=== PATIENT | male | born 1960 | race Hispanic/Latino ===

== ENCOUNTER 2019-11-13 14:53 | Emergency (ER) | payer BC ==
[2019-11-13 15:59] LABS: Absolute Lymphocytes (CBC) 1.3 K/uL (0.7-4.9); Basophils % 0.5 % (0-1.3); Hematocrit 36.5 % (39.6-49.0); Lymphocytes % 18.2 % (15.3-44.8); MPV 10.9 fL (7.6-11.3)
--- NOTE | 2019-11-13 16:05 | RAD REPORT ---
EXAM DESCRIPTION: CT - Ct Stroke Brain Wo Cont - 11/13/2019 3:52 pm CLINICAL HISTORY: Code stroke CT head, blurred vision, unsteady gait CLINICAL HISTORY: None. TECHNIQUE: Axial 5 millimeter thick images of the head were obtained without IV contrast. All CT scans are performed using dose optimization technique as appropriate and may include automated exposure control or mA/KV adjustment according to patient size. FINDINGS: No intracranial hemorrhage, mass, or cerebral edema. No acute cortical based infarction se en. No cortical edema or sulcal effacement. Atrophy changes are present relatively mild. Chronic isch emic changes are scattered in the cerebral white matter and minimally in the each basal ganglia. No e xtra-axial fluid collections. Francois matter-white matter differentiation is preserved. Ventricles are in proportion to any volume loss. Visualized portions of the mastoid air cells, paranasal sinuses, and orbits are unremarkable. Findings telephoned to the referring clinician 1601 hours IMPRESSION: No hemorrhage or acute intracranial finding. Atrophy and chronic ischemic changes are present. Ventricles are in proportion. Chronic ischemic changes can mask nonhemorrhagic acute infarction. MR brain followup can be obtained if there is ongoing concern for acute ischemia.
[2019-11-13 16:09] LABS: Protime INR 1.15
[2019-11-13 16:10] LABS: Potassium 4.6 mmol/L (3.5-5.1)
[2019-11-13] MEDS ORDERED: LACTULOSE 20 GM/30 ML UCUP ONE (16:40)
--- NOTE | 2019-11-13 16:44 | RAD REPORT ---
EXAM DESCRIPTION: RAD - Chest Single View - 11/13/2019 3:59 pm CLINICAL HISTORY: Stroke protocol chest film COMPARISON: None. TECHNIQUE: AP portable chest image was obtained 1554 hours . FINDINGS: Lung volumes are very low which accentuates heart, vasculature and lung findings. No perip heral mass or consolidation. Mild failure or volume overload could be masked. Heart and vasculature are normal. No measurable pleural effusion and no pneumothorax. No acute bony abnormality seen. No acute aortic findings suspected. IMPRESSION: Limited study without focal lung parenchymal process. Shallow inspiration can obscure early failure or volume overload.
[2019-11-13 16:53] LABS: Albumin 3.3 g/dL (3.4-5.0); Bilirubin Direct 0.5 mg/dL (0-0.2); Protein, Total 7.8 g/dL (6.4-8.2)
[2019-11-13 17:40] LABS: Platelet Estimate DECR; Urine White Blood Cell Casts OK
[2019-11-13 17:41] LABS: Anisocytosis 1+; Blood Morphology Comment NOTED (NOT SEEN); Elliptocytes 1+; Hypochromasia 1+; Stomatocytes 1+
--- NOTE | 2019-11-13 17:41 | ER ---
Nurse's Notes [facility] Name: Chinedu Rosenberg Age: 59 yrs Sex: Male : 1960 Arrival Date: 11/13/2019 Time: 14:55 Bed 8 Private MD: Tomer Yepez V Diagnosis: Other cirrhosis of liver;Hepatic Encephalopathy Presentation: 11/13 15:29 Presenting complaint: Patient states: dizziness, difficulty walking "feel off balance", sr5 "couldn't see the numbers on my phone". Denies falls. Denies blood thinners. Awake/alert, steady gait from wheelchair to bed. Equal bus aide/smile. Reports s/s started at 7am today. Transition of care: patient was not received from another setting of care. Onset of symptoms was November 13, 2019 at 07:00. Care prior to arrival: None. 15:29 Method Of Arrival: Ambulatory sr5 15:29 Acuity: EDUARDO 2 sr5 15:30 Initial Sepsis Screen: Does the patient meet any 2 criteria? No. Patient's initial aa5 sepsis screen is negative. Does the patient have a suspected source of infection? No. Patient's initial sepsis screen is negative. 15:30 Risk Assessment: Do you want to hurt yourself or someone else? Patient reports no aa5 desire to harm self or others. Triage Assessment: 15:31 General: Appears in no apparent distress. Behavior is calm, cooperative. Pain: Denies sr5 pain. Historical: - Allergies: 15:31 No Known Allergies; sr5 - PMHx: 15:31 Diabetes - NIDDM; Hypertension; sr5 - Social history:: Smoking status: Patient/guardian denies using tobacco, never smoked. - Ebola Screening: : Patient negative for fever greater than or equal to 101.5 degrees Fahrenheit, and additional compatible Ebola Virus Disease symptoms. Screenin:00 Abuse screen: Denies threats or abuse. Nutritional screening: No deficits noted. aa5 Tuberculosis screening: No symptoms or risk factors identified. Fall Risk IV access (20 points). Total Millan Fall Scale indicates No Risk (0-24 pts). 16:20 Patient has been NPO before screening. The patient is alert, able to follow commands. aa5 The patient does not exhibit slurred or garbled speech The patient is not exhibiting difficulty speaking. The patient does not exhibit difficulty understanding words. The patient is able to swallow own secretions with no drooling or need for suction. Patient tolerated one teaspoon of water. No drooling, immediate coughing, gurgling, or clearing of the throat was noted. The patient tolerated 90mL of water. No drooling, immediate coughing, gurgling, or clearing of the throat was noted. The patient passed the bedside swallow screening. Oral medications may be given as ordered. Contact Physician for further diet orders. Provider notified of bedside swallow screening results: Cody Nicole DISTRIBUTION SYSTEM OPERATOR-C. Assessment: 15:31 General: Appears comfortable, Behavior is calm, cooperative. Pain: Denies pain. Neuro: aa5 Level of Consciousness is awake, alert, obeys commands, Oriented to person, place, time, situation, Speaker Mounter are equal bilaterally Moves all extremities. Gait is reports unsteady gait . Speech is normal, Facial symmetry appears normal, Pupils are PERRLA, Reports intermittent dizziness and blurry vision . Cardiovascular: Heart tones S1 S2 present Rhythm is regular. Respiratory: Airway is patent Respiratory effort is even, unlabored, Respiratory pattern is regular, symmetrical, Breath sounds are clear bilaterally. GI: Abdomen is round Bowel sounds present X 4 quads. Abd is soft and non tender X 4 quads. : No signs and/or symptoms were reported regarding the genitourinary system. EENT: No signs and/or symptoms were reported regarding the EENT system. Derm: Skin is dry, Skin is jaundiced, Skin temperature is warm. Musculoskeletal: Range of motion: intact in all extremities. 15:45 Reassessment: Pt states "I really have to pee now" at 1540. Pt assisted with urinal. aa5 Voided 100ml, completed at 1545. 15:46 Reassessment: Pt taken to CT accompanied by me, via stretcher. . aa5 15:55 Reassessment: Pt back from CT . aa5 16:30 Reassessment: Patient denies pain at this time. Pt assisted to restroom via wheelchair. aa5 . 16:41 Reassessment: Pt placed back in bed. . aa5 16:41 Neuro: Level of Consciousness is awake, alert, obeys commands, Oriented to person, aa5 place, time, situation. Respiratory: Airway is patent Respiratory effort is even, unlabored, Respiratory pattern is regular, symmetrical. Derm: Skin is dry, Skin is jaundiced, Skin temperature is warm. 16:55 Reassessment: Awaiting disposition, pt notified of wait time. . aa5 16:55 Neuro: Level of Consciousness is awake, alert, obeys commands, Oriented to person, aa5 place, time, situation. Respiratory: Airway is patent Respiratory effort is even, unlabored, Respiratory pattern is regular, symmetrical. Derm: Skin is dry, Skin is jaundiced, Skin temperature is warm. 17:52 Neuro: Level of Consciousness is awake, alert, obeys commands, Oriented to person, aa5 place, time, situation. Respiratory: Airway is patent Respiratory effort is even, unlabored, Respiratory pattern is regular, symmetrical. Derm: Skin is dry, Skin is jaundiced, Skin temperature is warm. Vital Signs: 15:31 BP 122 / 66; Pulse 97; Resp 16; Temp 98.3; Pulse Ox 98% on R/A; Weight 106.59 kg (R); sr5 Height 5 ft. 8 in. (172.72 cm); Pain 0/10; 16:00 BP 118 / 58; Pulse 95; Resp 18 S; Pulse Ox 98% on R/A; aa5 17:30 BP 120 / 61; Pulse 89; Resp 16 S; Temp 98.0(TE); Pulse Ox 98% on R/A; aa5 15:31 Body Mass Index 35.73 (106.59 kg, 172.72 cm) sr5 NIH Stroke Scale Scores: 15:31 NIHSS Score: 0 aa5 15:45 NIHSS Score: 0 la1 ED Course: 14:55 Patient arrived in ED. rg4 14:55 Tomer Yepez MD is Private Physician. rg4 15:27 Cody Nicole FNP-C [facility] la1 15:27 Harlan Saeed MD is Attending Physician. la1 15:28 Leelee Ochoa, CONNIE is Primary Nurse. aa5 15:30 Triage completed. sr5 15:31 Arm band placed on right wrist. Patient placed in an exam room. sr5 15:31 Patient has correct armband on for positive identification. Placed in gown. Bed in low aa5 position. Call light in reach. Side rails up X2. alarm security or surveillance monitor on. Pulse ox on. NIBP on. 15:35 Initial lab(s) drawn, by me, sent to lab. Inserted saline lock: 18 gauge in right aa5 antecubital area, using aseptic technique. Blood collected. 15:39 EKG done, by ED staff, reviewed by Cody MICHAEL. aa5 15:52 CT Stroke Brain w/o Contrast In Process Unspecified. EDMS 16:00 Stroke CXR 1 View In Process Unspecified. EDMS 17:50 No provider procedures requiring assistance completed. IV discontinued, intact, aa5 bleeding controlled, No redness/swelling at site. Pressure dressing applied. Administered Medications: 16:42 Drug: Lactulose 30 grams Volume: 45 ml; Route: PO; aa5 Point of Care Testing: Blood Glucose: 15:31 Blood Glucose: 125 mg/dL; sr5 Ranges: Outcome: 17:39 Discharge ordered by MD. la1 17:52 Discharged to home via wheelchair, with family. aa5 17:52 Condition: stable 17:52 Discharge instructions given to patient, Instructed on discharge instructions, follow up and referral plans. medication usage, Demonstrated understanding of instructions, follow-up care, medications, Prescriptions given X 1. 17:56 Patient left the ED. aa5 NIH Stroke Scale - NIH Stroke Score Date: 11/13/2019 Time: 15:31 Total Score = 0 1a. Level of Consciousness (LOC) - 0(Alert) 1b. Level of Consciousness (LOC) (Year \\T\\ Age) - 0(Both) 1c. LOC Commands (Open \\T\\ Closes Eyes/Volunteer Manager) - 0(Both) 2. Best Gaze (Lateral Gaze Paresis) - 0(Normal) 3. Visual Field Loss - 0(No visual loss) 4. Facial Palsy - 0(Normal) 5a. Left Arm: Motor (10-second hold) - 0(No drift) 5b. Right Arm: Motor (10-second hold) - 0(No drift) 6a. Left Leg: Motor (5-second hold - always test supine) - 0(No drift) 6b. Right Leg: Motor (5-second hold - always test supine) - 0(No drift) 7. Limb Ataxia (finger/nose \\T\\ heel/haynes - test with eyes open) - 0(Absent) 8. Sensory Loss (pinprick arms/legs/face) - 0(Normal) 9. Best Language: Aphasia (description/naming/reading) - 0(No aphasia) 10. Dysarthria (speech clarity - read or repeat words) - 0(Normal) 11. Extinction and Inattention (visual/tactile/auditory/spatial/personal) - 0(No abnormality) Initials: aa5 NIH Stroke Scale - NIH Stroke Score Date: 11/13/2019 Time: 15:45 Total Score = 0 1a. Level of Consciousness (LOC) - 0(Alert) 1b. Level of Consciousness (LOC) (Year \\T\\ Age) - 0(Both) 1c. LOC Commands (Open \\T\\ Closes Eyes/Volunteer Manager) - 0(Both) 2. Best Gaze (Lateral Gaze Paresis) - 0(Normal) 3. Visual Field Loss - 0(No visual loss) 4. Facial Palsy - 0(Normal) 5a. Left Arm: Motor (10-second hold) - 0(No drift) 5b. Right Arm: Motor (10-second hold) - 0(No drift) 6a. Left Leg: Motor (5-second hold - always test supine) - 0(No drift) 6b. Right Leg: Motor (5-second hold - always test supine) - 0(No drift) 7. Limb Ataxia (finger/nose \\T\\ heel/haynes - test with eyes open) - 0(Absent) 8. Sensory Loss (pinprick arms/legs/face) - 0(Normal) 9. Best Language: Aphasia (description/naming/reading) - 0(No aphasia) 10. Dysarthria (speech clarity - read or repeat words) - 0(Normal) 11. Extinction and Inattention (visual/tactile/auditory/spatial/personal) - 0(No abnormality) Initials: la1 Signatures: Dispatcher [employer] EDMS Leelee Ochoa, RN RN aa5 Corina Alexis, clerk EKG Tat1 Cody Nicole FNP-C FNP-Cla1 Ron Ward RN RN sr5 Mikala Bell rg4 Corrections: (The following items were deleted from the chart) 15:59 15:41 EKG done, by ED staff, reviewed by Cody SIERRA-Noel [facility] aa5 16:00 15:30 EKG done, by ED staff, reviewed by Cody MICHAEL [facility] 16:00 15:36 Reassessment: Pt taken to CT accompanied by me, via stretcher. . aa5 aa5 16:01 15:35 Reassessment: Pt states "I really have to pee now" at 1530. Pt assisted aa5 with urinal. Voided 100ml, completed at 1535. aa5 17:59 16:30 Reassessment: Patient is alert, oriented x 3, equal unlabored aa5 respirations, skin warm/dry/pink. Patient denies pain at this time. Pt assisted to restroom via wheelchair. . aa5 17:59 16:41 Reassessment: Patient is alert, oriented x 3, equal unlabored aa5 respirations, skin warm/dry/pink. Pt placed back in bed. . aa5
--- NOTE | 2019-11-13 17:42 | EDPHYS ---
Physician Documentation [facility] Name: Chinedu Rosenberg Age: 59 yrs Sex: Male : 1960 Arrival Date: 11/13/2019 Time: 14:55 Bed 8 Private MD: Tomer Yepez V ED Physician Harlan Saeed HPI: 11/13 15:41 This 59 yrs old Male presents to ER via Ambulatory with complaints of Doesn't la1 Feel Right. 15:41 The patient's problem is reported as altered mental status, confused. Onset: The la1 symptoms/episode began/occurred last known well was 2100 last night, pt woke up at 0330 with symptoms of confusion, for instance he was unable to find his cell phone and it was in his pocket, remembers having some trouble walking, was walking "like a turtle". Duration: The episode is continuous. Context: the episode(s) was witnessed, by co-worker(s), symptoms became apparent upon waking. The symptoms are alleviated by nothing. The symptoms are aggravated by nothing. Associated signs and symptoms: Pertinent negatives: diaphoresis, headache, lightheadedness, nausea, numbness, palpitations, seizure, shortness of breath, tingling, vertigo, vomiting, weakness. Severity of symptoms: At their worst the symptoms were moderate. Patient's baseline: Neuro: alert and fully oriented, Motor: no deficits, Speech: normal, The patient has a previous history of cirrhosis. pt reports that he went to bed around 0330 and was feeling normal but when he woke up he was feeling a little confused and just "not right". Historical: - Allergies: 15:31 No Known Allergies; sr5 - PMHx: 15:31 Diabetes - NIDDM; Hypertension; sr5 - Social history:: Smoking status: Patient/guardian denies using tobacco, never smoked. - Ebola Screening: : Patient negative for fever greater than or equal to 101.5 degrees Fahrenheit, and additional compatible Ebola Virus Disease symptoms. ROS: 15:44 Constitutional: Negative for fever, chills, and weight loss, Eyes: Negative for injury, la1 pain, redness, and discharge, ENT: Negative for injury, pain, and discharge, Neck: Negative for injury, pain, and swelling, Cardiovascular: Negative for chest pain, palpitations, and edema, Respiratory: Negative for shortness of breath, cough, wheezing, and pleuritic chest pain, Abdomen/GI: Negative for abdominal pain, nausea, vomiting, diarrhea, and constipation, Back: Negative for injury and pain, MS/Extremity: Negative for injury and deformity. 15:44 Neuro: Positive for dizziness, gait disturbance, Negative for altered mental status, headache, hearing loss, loss of consciousness, numbness, seizure activity, speech changes, syncope, near syncope, tingling, visual changes, weakness. Exam: 15:45 Constitutional: This is a well developed, well nourished patient who is awake, alert, la1 and in no acute distress. Head/Face: Normocephalic, atraumatic. Eyes: Pupils equal round and reactive to light, extra-ocular motions intact. Periorbital areas with no swelling, redness, or edema. ENT: Nares patent. No nasal discharge, no septal abnormalities noted. Tympanic membranes are normal and external auditory canals are clear. Oropharynx with no redness, swelling, or masses, exudates, or evidence of obstruction, uvula midline. Mucous membranes moist. Neck: Supple, full range of motion without nuchal rigidity, or vertebral point tenderness. No Meningismus. Chest/axilla: Normal chest wall appearance and motion. Nontender with no deformity. No lesions are appreciated. Cardiovascular: Regular rate and rhythm with a normal S1 and S2. No gallops, murmurs, or rubs. Normal PMI, no JVD. No pulse deficits. Respiratory: Lungs have equal breath sounds bilaterally, clear to auscultation No rales, rhonchi or wheezes noted. No increased work of breathing, no retractions or nasal flaring. Abdomen/GI: Soft, non-tender, with normal bowel sounds. No distension or tympany. No guarding or rebound. No evidence of tenderness throughout. Skin: Warm, dry with normal turgor. Normal color with no rashes, no lesions, and no evidence of cellulitis. MS/ Extremity: Pulses equal, no cyanosis. Neurovascular intact. Full, normal range of motion. 15:45 Neuro: Orientation: is normal, to person, place, time \\T\\ situation. Mentation: is normal, Memory: is normal, Cranial nerves: CN II- XII are normal as tested, visual lester are intact. extraocular movements are intact, Nystagmus is absent. Speech is clear and appropriate. Cerebellar function: normal finger to nose testing, Motor: is normal, no acute changes, moves all fours, strength is 5/5 in all extremities, Sensation: is normal, no acute changes. 16:02 Radiologist reports: No hemorrhage identified, chronic ischemic changes la1 Vital Signs: 15:31 BP 122 / 66; Pulse 97; Resp 16; Temp 98.3; Pulse Ox 98% on R/A; Weight 106.59 kg (R); sr5 Height 5 ft. 8 in. (172.72 cm); Pain 0/10; 16:00 BP 118 / 58; Pulse 95; Resp 18 S; Pulse Ox 98% on R/A; aa5 17:30 BP 120 / 61; Pulse 89; Resp 16 S; Temp 98.0(TE); Pulse Ox 98% on R/A; aa5 15:31 Body Mass Index 35.73 (106.59 kg, 172.72 cm) sr5 NIH Stroke Scale Scores: 15:31 NIHSS Score: 0 aa5 15:45 NIHSS Score: 0 la1 MDM: 15:33 Patient medically screened. la1 17:34 Data reviewed: vital signs, nurses notes, lab test result(s), EKG, radiologic studies, la1 I have discussed the patient's presentation/case with the attending Emergency Department Physician; and as a result, I will discharge patient. Data interpreted: Pulse oximetry: on room air is 98 %. Interpretation: normal. Counseling: I had a detailed discussion with the patient and/or guardian regarding: the historical points, exam findings, and any diagnostic results supporting the discharge/admit diagnosis, lab results, the need for outpatient follow up, a family practitioner, a tobacco sieve operator, to return to the emergency department if symptoms worsen or persist or if there are any questions or concerns that arise at home. ED course: PT alert, oriented x4, known history of cirrhosis but has not had to take lactulose before. Pt is tolerating PO, has not been febrile, hypotensive, or tachycardic during ED stay. Family at bedside, pt and family explained at length the treatment plan and need for lactulose. Given strict return precautions and cautioned not to until follow up with PCP. 11/13 15:35 Order name: Basic Metabolic Panel; Complete Time: 16:29 aa5 12/26 15:35 Order name: CBC with Diff aa11/13 15:35 Order name: Protime (+inr); Complete Time: 16:29 11/13 15:35 Order name: Ptt, Activated; Complete Time: 16:29 11/13 15:35 Order name: AMMONIA; Complete Time: 16:13 11/13 15:41 Order name: Glucose, Ancillary Testing; Complete Time: 16:05 EDCO 11/13 15:35 Order name: CT Stroke Brain w/o Contrast; Complete Time: 16:29 11/13 15:35 Order name: Stroke CXR 1 View; Complete Time: 16:55 11/13 15:35 Order name: EKG; Complete Time: 15:36 11/13 15:35 Order name: Accucheck; Complete Time: 15:35 11/13 15:35 Order name: Cardiac monitoring; Complete Time: 15:35 11/13 16:30 Order name: LFT's; Complete Time: 16:55 la1 11/13 17:41 Order name: CBC Smear Scan [facility] 11/13 15:35 Order name: EKG - Nurse/Tech; Complete Time: 15:57 11/13 15:35 Order name: IV Saline Lock; Complete Time: 15:36 11/13 15:35 Order name: Labs collected and sent; Complete Time: 15:35 11/13 15:35 Order name: NPO; Complete Time: 15:36 11/13 15:35 Order name: O2 Per Protocol; Complete Time: 15:36 11/13 15:35 Order name: O2 Sat Monitoring; Complete Time: 15:36 11/13 15:35 Order name: Stroke Swallow Screen; Complete Time: 16:44 aa Administered Medications: 16:42 Drug: Lactulose 30 grams Volume: 45 ml; Route: PO; aa5 Point of Care Testing: Blood Glucose: 15:31 Blood Glucose: 125 mg/dL; sr5 Ranges: Critical Glucose Levels:Adult <50 mg/dl or >400 mg/dl <40 mg/dl or >180 mg/dl Disposition: 19:08 Co-signature as Attending Physician, Harlan Saeed MD. rn Disposition: 11/13/19 17:39 Discharged to Home. Impression: Other cirrhosis of liver, Hepatic Encephalopathy. - Condition is Stable. - Discharge Instructions: Hepatic Encephalopathy, Liver Failure. - Prescriptions for Lactulose 10 gram/15 mL Oral Solution - take 30 milliliters by ORAL route once daily; 600 milliliter. - Medication Reconciliation Form, Thank You Letter form. - Follow up: Emergency Department; When: As needed. Follow up: Private Physician; When: 2 - 3 days; Reason: Recheck today's complaints, Re-evaluation by your physician. - Problem is new. - Symptoms have improved. NIH Stroke Scale - NIH Stroke Score Date: 11/13/2019 Time: 15:31 Total Score = 0 1a. Level of Consciousness (LOC) - 0(Alert) 1b. Level of Consciousness (LOC) (Year \\T\\ Age) - 0(Both) 1c. LOC Commands (Open \\T\\ Closes Eyes/Registration Rep) - 0(Both) 2. Best Gaze (Lateral Gaze Paresis) - 0(Normal) 3. Visual Field Loss - 0(No visual loss) 4. Facial Palsy - 0(Normal) 5a. Left Arm: Motor (10-second hold) - 0(No drift) 5b. Right Arm: Motor (10-second hold) - 0(No drift) 6a. Left Leg: Motor (5-second hold - always test supine) - 0(No drift) 6b. Right Leg: Motor (5-second hold - always test supine) - 0(No drift) 7. Limb Ataxia (finger/nose \\T\\ heel/haynes - test with eyes open) - 0(Absent) 8. Sensory Loss (pinprick arms/legs/face) - 0(Normal) 9. Best Language: Aphasia (description/naming/reading) - 0(No aphasia) 10. Dysarthria (speech clarity - read or repeat words) - 0(Normal) 11. Extinction and Inattention (visual/tactile/auditory/spatial/personal) - 0(No abnormality) Initials: aa5 NIH Stroke Scale - NIH Stroke Score Date: 11/13/2019 Time: 15:45 Total Score = 0 1a. Level of Consciousness (LOC) - 0(Alert) 1b. Level of Consciousness (LOC) (Year \\T\\ Age) - 0(Both) 1c. LOC Commands (Open \\T\\ Closes Eyes/Registration Rep) - 0(Both) 2. Best Gaze (Lateral Gaze Paresis) - 0(Normal) 3. Visual Field Loss - 0(No visual loss) 4. Facial Palsy - 0(Normal) 5a. Left Arm: Motor (10-second hold) - 0(No drift) 5b. Right Arm: Motor (10-second hold) - 0(No drift) 6a. Left Leg: Motor (5-second hold - always test supine) - 0(No drift) 6b. Right Leg: Motor (5-second hold - always test supine) - 0(No drift) 7. Limb Ataxia (finger/nose \\T\\ heel/haynes - test with eyes open) - 0(Absent) 8. Sensory Loss (pinprick arms/legs/face) - 0(Normal) 9. Best Language: Aphasia (description/naming/reading) - 0(No aphasia) 10. Dysarthria (speech clarity - read or repeat words) - 0(Normal) 11. Extinction and Inattention (visual/tactile/auditory/spatial/personal) - 0(No abnormality) Initials: la1 Signatures: Dispatcher [employer] EDMS Harlan Saeed MD MD rn Calderon, Audri RN RN aa5 Cody Nicole, CNC MACHINE PROGRAMMER-C CNC MACHINE PROGRAMMER-Cla1 Resecker, Ron, RN RN sr5 Corrections: (The following items were deleted from the chart) 17:56 17:39 11/13/2019 17:39 Discharged to Home. Impression: Other cirrhosis of aa5 liver; Hepatic Encephalopathy. Condition is Stable. Forms are Medication Reconciliation Form, Thank You Letter, Antibiotic Education, Prescription Opioid Use. Follow up: Emergency Department; When: As needed. Follow up: Private Physician; When: 2 - 3 days; Reason: Recheck today's complaints, Re-evaluation by your physician. Problem is new. Symptoms have improved. la1
[2019-11-13 19:17] VITALS: BP 122/66; TEMP 98.3; O2SAT 98
--- NOTE | 2019-11-14 13:49 | EKG ---
Test Date: 2019-11-13 Test Time: 15:45:21 Child Specialist: BHAVYA MEASUREMENT RESULTS: Intervals: Rate: 97 ND: 148 QRSD: 134 QT: 388 QTc: 492 [place]: P: 64 ND: 148 QRS: 23 T: 32 INTERPRETIVE STATEMENTS: Normal sinus rhythm Right bundle branch block Abnormal ECG Compared to ECG 11/05/2007 05:39:45 Right bundle-branch block now present Electronically Signed On 11-14-19 13:46:54 INSPECTOR AIDE by Wiliam Wagner
== END 2019-11-13 17:56 | disposition home or self-care (01) ==
LOC: ER 14:53
DX: K72.90 Hepatic failure, unspecified without coma (principal); K74.69 Other cirrhosis of liver; I10 Essential (primary) hypertension
CPT/HCPCS: 36415; 70450; 71045; 80048; 80076; 82140; 82947; 85025; 85610; 85730; 93005; 99285

== ENCOUNTER 2020-09-14 15:23 | Observation (INO) | payer BC ==
--- OUTSIDE RECORDS SUMMARY | 2020-09-14 15:33 | XMS REPORT | Clinical Summary ---
:1960 Author Organization [facility] Address [address] [place] [address] Care Team Providers Name Role Phone Unavailable Primary Care Provider Unavailable Allergies Not on File Medications Not on file Active Problems Not on file Encounters Date Type Specialty Care Team Description 09/01/2020 Telephone Hepatology Tracy Russell MA Rec /Delivery 1 CD 08/23/2020 Abstract Hepatology Jany Watkins MA 08/19/2020 Telephone Hepatology Maritza De Anda Appointment after 09/14/2019 Social History Tobacco Use Types Packs/Day Years Used Date Never Assessed Sex Assigned at Date Recorded Not on file Last Filed Vital Signs Not on file Plan of Treatment Date Type Specialty Care Team Description 09/16/2020 Office Visit Hepatology Annika Baires MD [address] [place], [place] [address] [phone] Health Maintenance Due Date Last Done Comments COLON CANCER SCREENING COLONOSCOPY 1960 LIPID PANEL 1993 INFLUENZA VACCINE (#1) 2020 Results Not on fileafter 09/14/2019 Insurance Payer Benefit Plan / Subscriber ID Effective Dates Phone Addre ss Type Group BLUE BCBS PPO POS [id number] 2019-Presen [phone] [id number] PPO CROSS/BLUE EPO CHOICE t [facility] [id number]
--- NOTE | 2020-09-14 17:25 | RAD REPORT ---
EXAM DESCRIPTION: RAD - Chest Single View - 09/14/2020 5:12 pm CLINICAL HISTORY: COUGH Chest pain. COMPARISON: Chest Single View dated 11/13/2019 FINDINGS: Portable technique limits examination quality. The lungs are grossly clear. The heart is normal in size. No displaced fractures. IMPRESSION: No acute intrathoracic process suspected.
[2020-09-14] MEDS ORDERED: NA CHLORIDE 0.9% 1,000 ML ONE ×2 (17:36→18:44)
[2020-09-14 17:52] LABS: Absolute Lymphocytes (CBC) 1.5 K/uL (0.7-4.9); Basophils % 0.4 % (0-1.3); Hematocrit 28.4 % (39.6-49.0); Lymphocytes % 14.9 % (15.3-44.8); MPV 10.6 fL (7.6-11.3)
[2020-09-14 17:55] LABS: Protime INR 1.26
[2020-09-14 18:11] LABS: Albumin 2.8 g/dL (3.4-5.0); Bilirubin Direct 0.8 mg/dL (0-0.2); Bilirubin Total 1.5 mg/dL (0.2-1.0); Magnesium 2.4 mg/dL (1.8-2.4); Protein, Total 7.3 g/dL (6.4-8.2); Troponin (Emerg Dept Use Only) 0.04 ng/mL (0.0-0.045)
[2020-09-14 18:28] LABS: Blood Morphology Comment NOTED (NOT SEEN); Hypochromasia 1+; Platelet Estimate DECR; Platelets, Giant PRESENT; White Blood Cell Scan OK (OK)
[2020-09-14 18:31] LABS: Urine Blood 2+ (NEG); Urine Glucose 3+ (NEG); Urine Protein NEGATIVE (NEG); Urine Specific Gravity 1.015 (1.005-1.030)
[2020-09-14] MEDS ORDERED: CEFTRIAXONE 1000 MG/VIAL ONE (18:44)
--- NOTE | 2020-09-14 18:52 | ER ---
Nurse's Notes [facility] Name: Chinedu Rosenberg Age: 59 yrs Sex: Male : 1960 Arrival Date: 09/14/2020 Time: 15:25 Bed 14 Private MD: Diagnosis: Unspecified cirrhosis of liver;Type 2 diabetes mellitus;Anemia, unspecified;Hypotension;Malaise and fatigue;Fever, unspecified;Urinary tract infection, site not specified Presentation: 09/14 15:58 Chief complaint: Patient states: I still feel wobbly and lightheaded a little bit ca1 today. Denies pain. Denies fever. Denies cough and congestion. Denies N/V/D Spouse and/or significant other states: : Yesterday he came home sick from work. He had no appetite, had trouble walking and was lightheaded and fell once yesterday and couldn't get up. He again almost fell last night but caught himself. Still wobbly today and lightheaded. Went to his PCP today, and was sent here to the ER. Coronavirus screen: Client denies travel out of the [place] in the last 14 days. fatigue, Client presents with at least one sign or symptom that may indicate coronavirus-19. Standard/surgical mask placed on the client. Provider contacted for isolation considerations. The client reports previous COVID testing was negative. Date of collection: July 2020. Ebola Screen: Patient negative for fever greater than or equal to 101.5 degrees Fahrenheit, and additional compatible Ebola Virus Disease symptoms Patient denies exposure to infectious person. Patient denies travel to an Ebola-affected area in the 21 days before illness onset. No symptoms or risks identified at this time. Initial Sepsis Screen: Does the patient meet any 2 criteria? No. Patient's initial sepsis screen is negative. Does the patient have a suspected source of infection? No. Patient's initial sepsis screen is negative. Risk Assessment: Do you want to hurt yourself or someone else? Patient reports no desire to harm self or others. Onset of symptoms was September 14, 2020. 15:58 Method Of Arrival: Ambulatory ca1 15:58 Acuity: EDUARDO 3 ca1 Triage Assessment: 16:00 General: Appears in no apparent distress. comfortable, Behavior is cooperative, bp appropriate for age, anxious. Pain: Denies pain. EENT: No deficits noted. Neuro: Level of Consciousness is awake, alert, obeys commands, Oriented to Appropriate for age Reports dizziness. Cardiovascular: No deficits noted. Respiratory: No deficits noted. GI: No signs and/or symptoms were reported involving the gastrointestinal system. : No signs and/or symptoms were reported regarding the genitourinary system. Derm: No deficits noted. Musculoskeletal: Circulation, motion, and sensation intact. Range of motion: intact in all extremities. Historical: - Allergies: 16:08 No Known Allergies; ca1 - PMHx: 16:08 Diabetes - NIDDM; Hypertension; Cirrhosis; ca1 - PSHx: 16:08 None; ca1 - Immunization history:: Adult Immunizations up to date, Flu vaccine is not up to date. It has been more than one year since last vaccine. - Social history:: Smoking status: Patient denies any tobacco usage or history of. - Family history:: not pertinent. Screenin:00 Abuse screen: Denies threats or abuse. Denies injuries from another. Nutritional bp screening: No deficits noted. Tuberculosis screening: No symptoms or risk factors identified. Fall Risk None identified. Assessment: 16:00 General: SEE TRIAGE NOTE. bp 17:00 Reassessment: Patient appears in no apparent distress at this time. Patient and/or bp family updated on plan of care and expected duration. Pain level reassessed. Patient is alert, oriented x 3, equal unlabored respirations, skin warm/dry/pink. INITIAL ORDERS IN PROCESS. 18:00 Reassessment: Patient appears in no apparent distress at this time. Patient and/or bp family updated on plan of care and expected duration. Pain level reassessed. Patient is alert, oriented x 3, equal unlabored respirations, skin warm/dry/pink. PT NOTED HYPOTENSIVE ON MONITOR. PROVIDER NOTIFIED, IVF INITIATED. Vital Signs: 15:58 BP 111 / 56; Pulse 93; Resp 16 S; Temp 98.7(TE); Pulse Ox 100% on R/A; Weight 106.59 kg ca1 (R); Height 5 ft. 8 in. (172.72 cm) (R); Pain 0/10; 16:46 BP 83 / 64; Pulse 94; Resp 17; Pulse Ox 100% ; bp 17:30 BP 96 / 34; Pulse 89; Resp 17; Pulse Ox 100% ; bp 18:26 BP 104 / 57; Pulse 90; Resp 16; Pulse Ox 99% ; bp 22:34 BP 108 / 63; Pulse 89; Resp 19; Temp 97.8; Pulse Ox 99% ; rr5 23:19 BP 109 / 53; Pulse 87; Resp 19; Temp 98; Pulse Ox 100% ; rr5 15:58 Body Mass Index 35.73 (106.59 kg, 172.72 cm) ca1 ED Course: 15:25 Patient arrived in ED. ds1 16:00 Patient has correct armband on for positive identification. Bed in low position. Call bp light in reach. Side rails up X2. Adult w/ patient. 16:05 Triage completed. ca1 16:08 Arm band placed on right wrist. ca1 16:28 Esteban Bonilla, RN is Primary Nurse. bp 16:48 Chad Sterling MD is Attending Physician. tyler 17:12 XRAY Chest (1 view) In Process Unspecified. EDMS 17:58 Inserted saline lock: 20 gauge in right antecubital area, using aseptic technique. 4 Blood collected. 18:49 Tomer Yepez MD is Hospitalizing Provider. [facility] Administered Medications: 17:30 Drug: NS 0.9% 500 ml Route: IV; Rate: bolus; Site: right antecubital; bp 17:30 Drug: NS 0.9% 1000 ml Route: IV; Rate: 125 ml/hr; Site: right antecubital; bp 18:33 Drug: Rocephin 2 grams Route: IV; Rate: per protocol; Site: right antecubital; bp 18:33 Drug: NS 0.9% 1000 ml Route: IV; Rate: 1 bolus; Site: right antecubital; bp Outcome: 18:51 Decision to Hospitalize by Provider. [facility] 09/15 00:03 Patient left the ED. rr5 Signatures: Dispatcher [employer] EDMS Chad Sterilng MD MD cha Sanford, Demi ds1 Esteban Bonilla, RN RN bp Juan Antonio Kyle RN RN rr5 Rosanne Ladd RN RN ca1 Kirit Ca dh4 Corrections: (The following items were deleted from the chart) 09/14 16:50 16:46 Pulse 94bpm; Resp 17bpm; Pulse Ox 100%; bp bp
--- NOTE | 2020-09-14 18:52 | EDPHYS ---
Physician Documentation [facility] Name: Chinedu Rosenberg Age: 59 yrs Sex: Male : 1960 Arrival Date: 09/14/2020 Time: 15:25 Bed 14 Private MD: ED Physician Chad Sterling HPI: 09/14 17:07 This 59 yrs old Male presents to ER via Ambulatory with complaints of Sent per tyler Lucho, Doesn't Feel Right. 17:07 weak, doesn't feel well. Onset: The symptoms/episode began/occurred 2 day(s) ago. tyler Severity of symptoms: At their worst the symptoms were mild moderate in the emergency department the symptoms are unchanged. The patient has experienced similar episodes in the past, a few times. Historical: - Allergies: 16:08 No Known Allergies; ca1 - PMHx: 16:08 Diabetes - NIDDM; Hypertension; Cirrhosis; ca1 - PSHx: 16:08 None; ca1 - Immunization history:: Adult Immunizations up to date, Flu vaccine is not up to date. It has been more than one year since last vaccine. - Social history:: Smoking status: Patient denies any tobacco usage or history of. - Family history:: not pertinent. ROS: 17:07 Constitutional: Negative for fever, chills, and weight loss, Eyes: Negative for injury, tyler pain, redness, and discharge, ENT: Negative for injury, pain, and discharge, Neck: Negative for injury, pain, and swelling, Cardiovascular: Negative for chest pain, palpitations, and edema, Respiratory: Negative for shortness of breath, cough, wheezing, and pleuritic chest pain, Back: Negative for injury and pain, : Negative for injury, bleeding, discharge, and swelling, Skin: Negative for injury, rash, and discoloration, Neuro: Negative for headache, weakness, numbness, tingling, and seizure, Psych: Negative for depression, anxiety, suicide ideation, homicidal ideation, and hallucinations, Allergy/Immunology: Negative for hives, rash, and allergies, Endocrine: Negative for neck swelling, polydipsia, polyuria, polyphagia, and marked weight changes, Hematologic/Lymphatic: Negative for swollen nodes, abnormal bleeding, and unusual bruising. 17:07 Neck: Positive for distended neck veins. 17:07 Abdomen/GI: Positive for abdominal distension. 17:07 MS/extremity: Positive for swelling, of the right leg and left leg. Exam: 17:07 Constitutional: This is a well developed, well nourished patient who is awake, alert, tyler and in no acute distress. Head/Face: Normocephalic, atraumatic. Eyes: Pupils equal round and reactive to light, extra-ocular motions intact. Lids and lashes normal. Conjunctiva and sclera are non-icteric and not injected. Cornea within normal limits. Periorbital areas with no swelling, redness, or edema. ENT: Nares patent. No nasal discharge, no septal abnormalities noted. Tympanic membranes are normal and external auditory canals are clear. Oropharynx with no redness, swelling, or masses, exudates, or evidence of obstruction, uvula midline. Mucous membranes moist. Cardiovascular: Regular rate and rhythm with a normal S1 and S2. No gallops, murmurs, or rubs. Normal PMI, no JVD. No pulse deficits. Respiratory: Lungs have equal breath sounds bilaterally, clear to auscultation and percussion. No rales, rhonchi or wheezes noted. No increased work of breathing, no retractions or nasal flaring. Back: No spinal tenderness. No costovertebral tenderness. Full range of motion. Male : Normal genitalia with no discharge or lesions. Skin: Warm, dry with normal turgor. Normal color with no rashes, no lesions, and no evidence of cellulitis. Neuro: Awake and alert, GCS 15, oriented to person, place, time, and situation. Cranial nerves II-XII grossly intact. Motor strength 5/5 in all extremities. Sensory grossly intact. Cerebellar exam normal. Normal gait. Psych: Awake, alert, with orientation to person, place and time. Behavior, mood, and affect are within normal limits. 17:07 Neck: External neck: is normal, C-spine: appears grossly normal, no acute changes, Thyroid: appears normal, Trachea: is midline with no obvious abnormalities, ROM/movement: is normal. 17:07 Chest/axilla: Inspection: normal, Palpation: is normal, Axilla: are normal, Lymph nodes: lymphadenopathy is not appreciated. 17:07 Cardiovascular: Rate: normal, Rhythm: regular, Pulses: Pulses are 4+ in bilateral radial, brachial, femoral, popliteal, posterior tibial and and dorsalis pedis arteries.. Heart sounds: normal, Edema: 4+ edema to level of left midcalf and right midcalf, JVD: is noted bilaterally, to 2 cm. 17:07 Respiratory: Exam negative for Vital Signs: 15:58 BP 111 / 56; Pulse 93; Resp 16 S; Temp 98.7(TE); Pulse Ox 100% on R/A; Weight 106.59 kg ca1 (R); Height 5 ft. 8 in. (172.72 cm) (R); Pain 0/10; 16:46 BP 83 / 64; Pulse 94; Resp 17; Pulse Ox 100% ; bp 17:30 BP 96 / 34; Pulse 89; Resp 17; Pulse Ox 100% ; bp 18:26 BP 104 / 57; Pulse 90; Resp 16; Pulse Ox 99% ; bp 22:34 BP 108 / 63; Pulse 89; Resp 19; Temp 97.8; Pulse Ox 99% ; rr5 23:19 BP 109 / 53; Pulse 87; Resp 19; Temp 98; Pulse Ox 100% ; rr5 15:58 Body Mass Index 35.73 (106.59 kg, 172.72 cm) ca1 MDM: 16:48 Patient medically screened. tyler 17:07 Differential Diagnosis sepsis. Data reviewed: vital signs, nurses notes, lab test [facility] result(s), EKG, radiologic studies, plain films. Data interpreted: court monitor: rate is 94 beats/min, rhythm is regular, Pulse oximetry: on room air is 100 %. Test interpretation: by ED physician or midlevel provider: ECG, plain radiologic studies. Counseling: I had a detailed discussion with the patient and/or guardian regarding: the historical points, exam findings, and any diagnostic results supporting the discharge/admit diagnosis, lab results, radiology results, the need for further work-up and treatment in the hospital. 09/14 16:55 Order name: Basic Metabolic Panel [facility] 09/14 16:55 Order name: CBC with Diff; Complete Time: 18:41 09/14 16:55 Order name: LFT's tyler 09/14 16:55 Order name: Magnesium [facility] 09/14 16:55 Order name: NT PRO-BNP; Complete Time: 18:23 tyler 09/14 16:55 Order name: PT-INR; Complete Time: 18:06 [facility] 09/14 16:55 Order name: Troponin (emerg Dept Use Only); Complete Time: 18:23 [facility] 09/14 16:55 Order name: Lipase; Complete Time: 18:23 [facility] 09/14 16:55 Order name: Blood Culture Adult (2) [facility] 09/14 16:55 Order name: AMMONIA; Complete Time: 18:06 [facility] 09/14 16:55 Order name: Lactate; Complete Time: 18:23 [facility] 09/14 16:55 Order name: Urine Culture [facility] 09/14 16:56 Order name: Basic Metabolic Panel; Complete Time: 18:23 [facility] 09/14 16:56 Order name: Liver (Hepatic) Function; Complete Time: 18:23 [facility] 09/14 16:55 Order name: XRAY Chest (1 view); Complete Time: 18:06 [facility] 09/14 16:55 Order name: EKG; Complete Time: 16:57 [facility] 09/14 16:56 Order name: Magnesium; Complete Time: 18:23 [facility] 09/14 17:03 Order name: Type And Screen [facility] 09/14 18:20 Order name: Urine Dipstick--Ancillary (enter results); Complete Time: 18:41 09/14 18:28 Order name: CBC Smear Scan; Complete Time: 18:41 [facility] 09/14 18:44 Order name: ABO/RH no charge; Complete Time: 18:47 [facility] 09/14 18:44 Order name: COVID-19 [facility] 09/14 18:45 Order name: COVID-19 09/14 18:56 Order name: CONS Physician Consult [facility] 09/14 20:42 Order name: Lactate Sepsis 2 HR Follow-up [facility] 09/14 21:56 Order name: SARS-COV-2 RT PCR [facility] 09/14 16:55 Order name: Cardiac monitoring; Complete Time: 17:43 [facility] 09/14 16:55 Order name: EKG - Nurse/Tech; Complete Time: 17:43 [facility] 09/14 16:55 Order name: IV Saline Lock; Complete Time: 17:43 [facility] 09/14 16:55 Order name: Labs collected and sent; Complete Time: 17:43 [facility] 09/14 16:55 Order name: O2 Per Protocol; Complete Time: 17:21 [facility] 09/14 16:55 Order name: O2 Sat Monitoring; Complete Time: 17:00 [facility] 09/14 16:55 Order name: Urine Dipstick-Ancillary (obtain specimen); Complete Time: 18:47 [facility] 09/14 17:59 Order name: Labs - recollect needed: collect abo\E\rh; Complete Time: 18:21 bd Administered Medications: 17:30 Drug: NS 0.9% 500 ml Route: IV; Rate: bolus; Site: right antecubital; bp 17:30 Drug: NS 0.9% 1000 ml Route: IV; Rate: 125 ml/hr; Site: right antecubital; bp 18:33 Drug: Rocephin 2 grams Route: IV; Rate: per protocol; Site: right antecubital; bp 18:33 Drug: NS 0.9% 1000 ml Route: IV; Rate: 1 bolus; Site: right antecubital; bp Disposition: 09/14/20 18:51 Hospitalization ordered by Tomer Yepez for Inpatient Admission. Preliminary diagnosis are Unspecified cirrhosis of liver, Type 2 diabetes mellitus, Anemia, unspecified, Hypotension, Malaise and fatigue, Fever, unspecified, Urinary tract infection, site not specified. - Bed requested for Telemetry/MedSurg (Inpatient). - Status is Inpatient Admission. rr5 - Condition is Fair. - Problem is new. - Symptoms have improved. Signatures: Dispatcher [employer] EDMS Valarie Coleman Corey, MD MD cha Lasagna, Tonya, RN RN tl1 Esteban Bonilla RN RN Juan Antonio Beach, RN RN rr5 Rosanne Ladd RN RN ca1 Corrections: (The following items were deleted from the chart) 22:24 18:51 Hospitalization Ordered by Tomer Yepez MD for Inpatient Admission. Preliminary tl1 diagnosis is Unspecified cirrhosis of liver; Type 2 diabetes mellitus; Anemia, unspecified; Hypotension; Malaise and fatigue; Fever, unspecified; Urinary tract infection, site not specified. Bed requested for Telemetry/MedSurg (Inpatient). Status is Inpatient Admission. Condition is Fair. Problem is new. Symptoms have improved. [facility] 09/15 00:03 09/14 22:24 09/14/2020 18:51 Hospitalization Ordered by Tomer Yepez MD for Inpatient rr5 Admission. Preliminary diagnosis is Unspecified cirrhosis of liver; Type 2 diabetes mellitus; Anemia, unspecified; Hypotension; Malaise and fatigue; Fever, unspecified; Urinary tract infection, site not specified. Bed requested for Telemetry/MedSurg (Inpatient). Status is Inpatient Admission. Condition is Fair. Problem is new. Symptoms have improved. tl1
[2020-09-14] MEDS ORDERED: D50W 25 GM/50 ML SYRINGE/VIAL IV PRN (23:31)
[2020-09-14] MEDS ORDERED: GLUCAGON 1 MG/VIAL IM PRN (23:31)
[2020-09-14] MEDS ORDERED: CEFTRIAXONE 1 GM/NS 50 ML 1 GM/50 ML BAG IV SCH (23:31)
[2020-09-14] MEDS ORDERED: ALBUTEROL 2.5 MG/3 ML NEB SOL NEB PRN (23:31)
[2020-09-14] MEDS: INSULIN -REGULAR HUMAN 50 UNIT/0.5 ML ML SQ SCH (23:31)
[2020-09-14] MEDS ORDERED: ONDANSETRON 4 MG/2 ML VIAL IV PRN (23:31)
[2020-09-14] MEDS ORDERED: LACTULOSE 20 GM/30 ML UCUP PO PRN (23:31)
[2020-09-14] MEDS ORDERED: IPRATROPIUM BROM 0.5MG/2.5ML NEB PRN (23:31)
[2020-09-14] MEDS ORDERED: ACETAMINOPHEN 500 MG TAB PO PRN (23:31)
[2020-09-14] MEDS ORDERED: MORPHINE 2 MG/ML SYR IV PRN (23:38)
[2020-09-14] MEDS: CEFTRIAXONE/SWI 1gm 1 GM/10 ML SYR IV SCH (23:45)
[2020-09-15 00:57] VITALS: BMI 35.7
[2020-09-15] MEDS: FAMOTIDINE 20 MG/2 ML VIAL IV SCH ×2 (00:59→08:37)
[2020-09-15 05:15] LABS: Absolute Lymphocytes (CBC) 1.6 K/uL (0.7-4.9); Lymphocytes % 14.1 % (15.3-44.8); MPV 9.6 fL (7.6-11.3)
[2020-09-15 05:33] LABS: Potassium 3.9 mmol/L (3.5-5.1)
[2020-09-15] MEDS ORDERED: INFLUENZA VACCINE (for 3y+) 0.5 ML DOSE IMVAC ONE (06:00)
[2020-09-15] MEDS: INSULIN -REGULAR HUMAN 50 UNIT/0.5 ML ML SQ SCH ×2 (07:30→11:30)
[2020-09-15] MEDS: CEFTRIAXONE/SWI 1gm 1 GM/10 ML SYR IV SCH (08:37)
[2020-09-15] MEDS ORDERED: ENOXAPARIN 40 MG/0.4 ML SQ SCH (09:00)
[2020-09-15] MEDS ORDERED: FUROSEMIDE 20 MG/ 2ML VIAL IV SCH (09:00)
--- NOTE | 2020-09-15 09:43 | RAD REPORT ---
EXAM DESCRIPTION: RAD - Chest Single View - 09/15/2020 5:47 am CLINICAL HISTORY: Chest Pain Chest pain. COMPARISON: Chest Single View dated 09/14/2020; Chest Single View dated 11/13/2019 FINDINGS: Portable technique limits examination quality. The lungs are grossly clear. The heart is normal in size. No displaced fractures. IMPRESSION: No acute intrathoracic process suspected.
--- NOTE | 2020-09-15 09:53 | RAD REPORT ---
EXAM DESCRIPTION: US - Abdomen Exam Complete - 09/15/2020 7:33 am CLINICAL HISTORY: Abdominal pain. splenomegaly and cirrhosis COMPARISON: Abdomen Exam Complete dated 11/04/2019 FINDINGS: The liver has a cirrhotic appearance with nodular liver contour. No focal liver lesions or intrahepatic biliary dilatation is seen. Several gallstones are present in the gallbladder. Thickened gallbladder wall measuring up to 7 mm is noted. Common bile duct is normal in caliber measuring 5 millimeters. Both kidneys are normal in size, shape and echotexture. No hydronephrosis, focal lesion of concern or perinephric fluid. The spleen is mildly enlarged measuring 15 cm. The pancreas and aorta are obscured by bowel gas. The visualized aspects of the IVC are grossly normal. IMPRESSION: Cirrhotic liver is present without focal mass. Cholelithiasis with thickening of the gallbladder wall is seen. This is probably secondary to liver d ysfunction although cholecystitis cannot be ruled out. Mild splenomegaly.
--- NOTE | 2020-09-15 11:30 | RAD REPORT ---
EXAM DESCRIPTION: MRI - Brain Wo Cont - 09/15/2020 10:33 am CLINICAL HISTORY: weakness COMPARISON: Ct Stroke Brain Wo Cont dated 11/13/2019 TECHNIQUE: Multi-sequence, multiplanar MR imaging of the brain was performed without contrast. FINDINGS: No intracranial hemorrhage, hydrocephalus or extra-axial fluid collections. Minimal perive ntricular T2 and FLAIR hyperintensity. No edema or shift of midline structures. No findings to suspe ct brain mass. DWI is negative for acute CVA. Midline structures are normally formed. 18 mm mucous retention cyst or polyp is seen inferior left maxillary antrum. The paranasal sinuses an d mastoids are otherwise clear. IMPRESSION: No acute or aggressive intracranial abnormalities.
[2020-09-15 11:36] VITALS: O2SAT 99
[2020-09-15 12:22] VITALS: BP 106/55; TEMP 98.5
--- NOTE | 2020-09-15 12:59 | EKG ---
Test Date: 2020-09-15 Test Time: 08:19:57 Joggle Press Operator: IRA MEASUREMENT RESULTS: Intervals: Rate: 98 PA: 150 QRSD: 136 QT: 380 QTc: 485 Sheldon: P: 61 PA: 150 QRS: 38 T: 45 INTERPRETIVE STATEMENTS: Normal sinus rhythm Right bundle branch block Abnormal ECG Compared to ECG 11/13/2019 15:45:21 No significant changes Electronically Signed On 09-15-20 12:59:11 CDT by Wiliam Wagner
--- NOTE | 2020-09-15 14:17 | ECHO ---
HEIGHT: 5 ft 8 in WEIGHT: 235 lb 0 oz DATE OF STUDY: 09/15/[address]: Chad Sterling MD 2-DIMENSIONAL: YES M.MODE: YES DOPPLER: YES COLOR FLOW: YES TDS: PORTABLE: DEFINITY: BUBBLE STUDY: DIAGNOSIS: HYPOTENSION, CARDIOMEGALY, JUGULAR VENOUS DISTENTION CARDIAC HISTORY: CATHERIZATION: NO SURGERY: NO PROSTHETIC VALVE: NO PACEMAKER: NO MEASUREMENTS (cm) DIASTOLIC (NORMALS) SYSTOLIC (NORMALS) IVSd 1.0 (0.6-1.2) LA Diam 3.7 (1.9-4.0) LVEF 54% LVIDd 4.6 (3.5-5.7) LVIDs 3.3 (2.0-3.5) %FS 28% LVPWd 1.2 (0.6-1.2) Ao Diam 3.0 (2.0-3.7) 2 DIMENSIONAL ASSESSMENT: RIGHT ATRIUM: NORMAL LEFT ATRIUM: NORMAL RIGHT VENTRICLE: NORMAL LEFT VENTRICLE: NORMAL TRICUSPID VALVE: NORMAL MITRAL VALVE: NORMAL PULMONIC VALVE: NORMAL AORTIC VALVE: NORMAL PERICARDIAL EFFUSION: NONE AORTIC ROOT: NORMAL LEFT VENTRICULAR WALL MOTION: DOPPLER/COLOR FLOW: COMMENTS: NORMAL 2-DIMENSIONAL ECHOCARDIOGRAM. NO WALL MOTION ABNORMALITY. NO EFFUSION. TECHNOLOGIST: SACHIN MCKENNA
--- NOTE | 2020-09-15 21:11 | P.SSS ---
Patient History Date of Service: 09/15/20 Reason for admission: WEAKNESS History of Present Illness: TYRESE HAS FATTY LIVER INDUCED CIRRHOSIS, ANEMIA, LOW PLATELETS AND ALSO HAS DIABETES AND OBESITY. HE COMES TO OFFICE WITH WEAKNESS AND FEVER, HIS COVID TEST WAS NEGATIVE. HE DENIES FEVER HERE. I STOPPED HIS RAMIPRIL BP WAS LOW. HE IS STABLE WHEN I SEE HIM THIS AM. HE IS ABLE TO AMBULATE. HE WILL APPLY FOR DISABILTY. HE CARRIES POOR PROGNOSIS HE HAS CIRRHOSIS WITH LOW PLATELETS. Allergies No Known Allergies Allergy (Unverified 09/14/20 19:06) Home Medications: Empagliflozin/Metformin HCl [Synjardy 12.5-1,000 mg Tablet] 1 tab PO BIDWM 09/15/20 Glimepiride [Amaryl] 4 mg PO BIDWM 09/15/20 Lactulose 15 ml PO BID 09/15/20 Omeprazole [Prilosec] 40 mg PO DAILY 09/15/20 Rifaximin [Xifaxan*] 550 mg PO BID 09/15/20 Spironolactone [Aldactone*] 100 ng PO DAILY 09/15/20 - Past Medical/Surgical History Has patient received pneumonia vaccine in the past: Yes Diabetic: Yes -: DM -: HTN -: Cirrhosis -: knee surgery Left - Family History Mother -: Hypertension, Diabetes Brother -: Liver disease - Social History Smoking Status: Never smoker Alcohol use: No CD- Drugs: No Caffeine use: Yes Place of Residence: Home Review of Systems 10-point ROS is otherwise unremarkable General: Weakness Physical Examination - Vital Signs Temperature: 98.5 F Blood Pressure: 106/55 Pulse: 92 Respirations: 18 Pulse Ox (%): 98 - Physical Exam General: Alert, In no apparent distress, Obese HEENT: Atraumatic, PERRLA, Mucous membr. moist/pink, EOMI, Sclerae nonicteric Neck: Supple, 2+ carotid pulse no bruit, No LAD, Without JVD or thyroid abnormality Respiratory: Clear to auscultation bilaterally, Normal air movement Cardiovascular: Regular rate/rhythm, Normal S1 S2 Gastrointestinal: Normal bowel sounds, No tenderness Musculoskeletal: No tenderness Integumentary: No rashes Neurological: Normal gait, Normal speech, Normal strength at 5/5 x4 extr, Normal tone, Normal affect Lymphatics: No axilla or inguinal lymphadenopathy - Diagnosis (Problem(s)) (1) Hypotension Status: Acute Plan: I STOPPED RAMIPRIL HE IS NOT ABLE TO TOLERATE. RESUME SPIRONOLACTONE FOR EDEMA FROM CIRRHOSIS. 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 HE WILL FU WITH HIS GI DOCTOR. (3) Diabetes Status: Chronic Qualifiers: Diabetes mellitus type: type 2 (4) Secondary thrombocytopenia Status: Acute - Disposition Disposition: ROUTINE DISCHARGE Condition: SERIOUS
== END 2020-09-15 14:43 | disposition home or self-care (01) ==
LOC: ER 15:23 → ERHOLD 18:53 → INTOOBSV 18:53 → 2ND 23:28
PROVIDERS: ADMIT Internal Medicine; ATTEND Internal Medicine
DX: I95.2 Hypotension due to drugs (principal); K74.60 Unspecified cirrhosis of liver; E11.9 Type 2 diabetes mellitus without complications; E66.9 Obesity, unspecified; T46.4X5A Adverse effect of angiotensin-converting-enzyme inhibitors, initial encounter; Z20.828 Contact with and (suspected) exposure to other viral communicable diseases; D64.9 Anemia, unspecified; R53.1 Weakness; Z79.84 Long term (current) use of oral hypoglycemic drugs; I10 Essential (primary) hypertension; K75.81 Nonalcoholic steatohepatitis (NASH); D69.59 Other secondary thrombocytopenia; Z68.35 Body mass index [BMI] 35.0-35.9, adult; Z23 Encounter for immunization; R94.31 Abnormal electrocardiogram [ECG] [EKG]; I45.10 Unspecified right bundle-branch block
CPT/HCPCS: 93005 ×2; 93306; 87040 ×2; 87088; 85025 ×2; 87086; 80048 ×2; 36415; 82140; 86900; 83735; 86850; 85610; 86901; 82947 ×4; 80076; 83605 ×2; 87077; 87186; 81003; 84484 ×3; 83690; 83880 ×2; 71045 ×2; 90471; 70551; 76700; 96374; 99284; U0003; J1940; Q2035; J0696; J7030 ×2; G0378 ×2

== ENCOUNTER 2021-02-21 14:25 | Emergency (ER) | payer BC ==
--- OUTSIDE RECORDS SUMMARY | 2021-02-21 14:28 | XMS REPORT | Continuity of Care Document ---
:1960 Author Organization [facility] t Address [address] [place] [address] Care Team Providers Name Role Phone LuchoPastorTomerrashmi Woodruff Primary Care Physician [phone] Cipriano Baires MD Attending Clinician Mackenzie Howe Attending Clinician Darron HAWLEY Attending Clinician Unavailable Franky Attending Clinician Unavailable Gerardo HAWLEY Attending Clinician Unavailable CIPRIANO BAIRES Attending Clinician Unavailable Adilson Attending Clinician Unavailable Yvonne HAWLEY Attending Clinician Unavailable Roland HAWLEY Attending Clinician Unavailable Payers Payer Name Policy Type Policy Effective Date Expiration Date Sour ce Number BLUE CROSS/BLUE [id number] 2019 [facility] Medical POS EPO Center [id number] 2019-Present [phone], [place] [address]KXI Problems Condition Condition Condition Status Onset Resolution Last Treating Co mments Source Name Details Category Date Date Treatment Clinician Date Other Other Disease Active 2019-[address] cirrhosis cirrhosis 0-29 Assessmen Tawnya heath - of liver of liver 00:00: t & Plan: Med ical 00 Based on Center clinical picture, labs and imaging. Likely related to WOOD. We will do labs to exclude other causes of liver disease and calculate MELD.Deco mpensated with hepatic encephalo reggie.We will do MRI liver protocol to check liver morpholog y.If his MELD score>15, we will evaluate for liver transplan t Metabolic Metabolic Disease Active 2019-[address] syndrome syndrome 0-29 Assessmen [facility] [facility] - 00:00: t & Plan: Medical 00 Needs Center control of diabetes. Advised weight loss by 10% in next6 months through life-styl e modificat ion-low sugar/low carbohydr ate diet Portal Portal Disease Active 2019-11 [facility] - on on 00:00: t & Plan: Medical 00 He has Center features of portal hypertens ion with esophagea l varices, portal gastropat hy, thrombocy topenia, and leg swelling. He is scheduled for EGD with his gastroent erologist Advised low salt high protein diet.He is on Spironola ctone 100 mg a day. Added Lasix 40 mg a day.Needs monitorin g of LFT Encephalop Encephalop Disease Active 2019-[address] [facility]hy athy [facility] - 00:00: t & Plan: Medical Needs to Center adjust the dose of Lactulose to have 2-3 bowel movements a day. Continue Xifaxan.A dvised not to drive. Screening Screening Disease Active 2019-11 [facility] for for [facility] - endocrine, endocrine, 00:00: t & Plan: Medical metabolic metabolic 00 Serologic C enter and and al tests immunity immunity will be disorder disorder completed to determine the presence of immunity to hepatitis A and B. If found susceptib le she will be referred to her primary care provider to consider the administr ation of the appropria te vaccines. Allergies, Adverse Reactions, Alerts This patient has no known allergies or adverse reactions. Family History Family Member Diagnosis Comments Start Date Stop Date Source Natural brother Cirrhosis [facility] Natural mother Diabetes [facility] Natural mother Heart disease [facility] Social History Social Habit Start Date Stop Date Quantity Comments Source History SDOH [facility] - Alcohol Std Drinks Medica l Center History SDOH [facility] Alcohol Binge Medical Efrem ter Sex Assigned At [facility] Tobacco use and 2020-09-16 2020-09-16 Never used [facility] - exposure 00:00:00 00:00:00 Medical Center Alcohol intake 2020-09-16 2020-09-16 Lifetime [facility] - 00:00:00 00:00:00 non-drinker Medical Denisha sethi (finding) History SDOH 2020-09-16 2020-09-[address] [facility] - Alcohol Frequency 00:00:00 00:00:00 Medical Center Smoking Status Start Date Stop Date Source Never smoker [facility] - M edical Center Medications Ordered Filled Start Stop Current Ordering Indication Dosage Frequency Signature Comments Components Source Medication Medication Date Date Medication? Clinician (SIG) Name Name lactulose 2019-11 Yes 20g [id number] Take [address] [facility] [address] (CHRONULAC) 0-29 [id number] by mouth 3 [facility] - 10 gram/15 10:42: 3D (three) Medi shayy mL (15 mL) 34 times Center solution daily. spironolact 2019-11 Yes 100mg QD Take [address] one 0-29 mg [facility] - (ALDACTONE) 10:42: mouth Medic al 100 MG 34 daily. Center tablet furosemide 2019-11 No 40mg QD Take [address] (LASIX) 40 0-29 10-29 tablet (40 Nelda kes - MG tablet 00:00: 23:59 mg total) Me dical 00 :00 by mouth Center daily. Synjardy 2019-[address] 12.5-1,000 0-26 [facility] - mg Tab 00:00: Medical 00 Center Xifaxan 550 2019-11 Yes 1{tbl} Q.5D Take [address] mg Tab 0-20 tablet [facility] - 00:00: mouth 2 Medical 00 (two) Center times daily. ramipriL Yes 10mg Q.5D Take [address] (ALTACE) 10 9-24 by mouth 2 Nelda kes - MG capsule 00:00: (two) Medica l 00 times Center daily. omeprazole Yes 40mg QD Take [address] (PriLOSEC) 9-21 by mouth [facility] - 40 MG 00:00: daily. Medical capsule 00 Center glimepiride Yes 4mg Q.5D Take [address] (AMARYL) 4 9-17 by mouth 2 [place] [facility] - MG tablet 00:00: (two) Medical 00 times Center daily. Vital Signs Vital Name Observation Time Observation Value Comments Source Systolic blood 2020-09-16 10:41:00 116 mm[Hg] [facility] - pressure Medical Center Diastolic blood 2020-09-16 10:41:00 72 mm[Hg] [facility] pressure [facility] Heart rate 2020-09-16 10:41:00 102 /min [facility] Body temperature 2020-09-16 10:41:00 36.28 [place] [facility] Respiratory rate 2020-09-16 10:41:00 18 /min [facility] Body height 2020-09-16 10:41:00 167.6 cm [facility] Body weight 2020-09-16 10:41:00 110.088 kg [facility] BMI 2020-09-16 10:41:00 39.17 kg/m2 [facility] Oxygen saturation in 2020-09-16 10:41:00 99 /min [facility] Arterial blood by Medical Ce nter Pulse oximetry Procedures Procedure Date / Time Performed Performing Clinician [facility] e MR ABDOMEN WITH & WITHOUT 2021-01-21 09:15:00 Annika Baires [facility] IV CONTRAST [facility] VANESSA TITER AND PATTERN 2020-09-16 12:13:00 Annika Baires [facility] CBC W/PLT COUNT & AUTO 2020-09-16 12:13:00 Annika Baires [facility] COMPREHENSIVE METABOLIC 2020-09-16 12:13:[address] [facility] BILIRUBIN, DIRECT 2020-09-16 12:13:00 Annika Baires [facility] PROTHROMBIN TIME/INR 2020-09-16 12:13:00 Annika Baires [facility] HEPATITIS A ANTIBODY, IGG 2020-09-16 12:13:00 Annika Baires [facility] HEPATITIS A ANTIBODY, IGM 2020-09-16 12:13:00 Annika Baires [facility] HEPATITIS B SURFACE 2020-09-16 12:13:00 Annika Baires [facility] ANTIGEN [facility] HEPATITIS B SURFACE 2020-09-16 12:13:[address] [facility] HEPATITIS B CORE 2020-09-16 12:13:[address] [facility] - ANTIBODY, TOTAL [facility] HEPATITIS C ANTIBODY 2020-09-16 12:13:[address] [facility] IRON, TIBC, % SAT. 2020-09-16 12:13:00 Annika Baires [facility] (WITHOUT FERRITIN) [facility] FERRITIN 2020-09-16 12:13:[address] [id number]\, 2020-09-16 12:13:[address] [facility] SERUM [facility] CERULOPLASMIN 2020-09-16 12:13:00 Annika Baires [facility] ANTI-NUCLEAR ANTIBODY 2020-09-16 12:13:[address] [facility] - (VANESSA) [facility] ACTIN (SMOOTH MUSCLE) 2020-09-16 12:13:[address] [facility] - ANTIBODY, IGG [facility] MITOCHONDRIA M2 ANTIBODY 2020-09-16 12:13:[address] [facility] (IGG) [facility] ALPHA FETOPROTEIN (AFP), 2020-09-16 12:13:[address] [facility] - TUMOR MARKER [facility] Plan of Care Planned Activity Planned Date Details Comments Source Future Scheduled 2020-11-[address] [facility] - Test 00:00:00 (12+) [code = [facility] DEPRESSION SCREENING (12+)] Future Scheduled 2020-07-[address] [facility] - Test 00:00:00 (#1) [code = [facility] INFLUENZA VACCINE (#1)] Future Scheduled 2008 SHINGLES VACCINES ([address] [facility] - Test 00:00:00 of 2) [code = [facility] SHINGLES VACCINES (1 of 2)] Future Scheduled [address] [facility] - Test 00:00:00 (procedure) [code = [facility] [id number]] Future Scheduled 1977 DTAP/TDAP/TD VACCINES [facility] - Test 00:00:00 (1 - Tdap) [code = Medical C enter DTAP/TDAP/TD VACCINES (1 - Tdap)] Future Scheduled 1960 Screening for JOSÉ Sellers es - Test 00:00:00 malignant neoplasm of Medica l Center colon (procedure) [code = 920089220] Results Test Test Test Comments Results Result Source Description Time Comments MR, ABDOMEN, 2021-01- Referring: Dr. Rivera WITH 05 SiddiquiUnlisted 11:45:00 Reason for Exam - Click Yes and Enter [facility]: Below->YesUnlisted TYRESE CARBALLO Reason for : 1960 Exam->cirrhosis Sex: M FINAL REPORT TECHNIQUE: MRI of the abdomen WITHOUT and WITH intravenous contrast. INDICATION: Unlisted Reason for Examcirrhosis COMPARISON: Abdomen ultrasound on 09/15/2020. FINDINGS: LOWER THORAX: Unremarkable LIVER: Cirrhotic liver morphology. There are numerous subcentimeter arterially enhancing observation without correlate on other pre or post gadolinium sequences. Sampling Expert observations as follows:*0.5 cm segment VIII observation (arterial axial image 85). LI-RADS 2*0.5 cm segment VII/ observation (arterial axial image 80). LI-RADS 2*0.6 cm segment observation (arterial axial image 74). This observation is central within the liver and rounded. LI-RADS 3*0.6 cm segment IV observation (arterial axial image 72). LI-RADS 2 BILIARY: Cholelithiasis. No gallbladder wall thickening. No biliary ductal dilatation or filling defect.SPLEEN: The spleen measures 16 cm in craniocaudal dimension.PANCREAS: No focal masses or ductal dilatation. ADRENALS: No adrenal nodules.KIDNEYS/URE TERS: No hydronephrosis or solid mass lesions. A left lower pole simple renal cyst measures 0.7 cm. No routine follow-up imaging is recommended. PERITONEUM/RETROPER ITONEUM: Trace ascites. The area which is hypointense on T2-weighted imaging and progressively enhances in the retroperitoneum near the origin of the superior mesenteric artery measures 2.2 x 4.8 cm LYMPH NODES: No lymphadenopathy.VES SELS: The main portal vein is patent and measures 2 cm in diameter. Small esophageal varices. GI TRACT: Mild diffuse bowel wall thickening. BONES AND SOFT TISSUES: Gynecomastia. No focal suspicious osseous lesions. IMPRESSION: 1.No suspicious focal hepatic lesion. 2.An arterially enhancing 0.6 cm observation in segment does not washout or form a pseudocapsule. LI-RADS 3. A follow-up MRI of the abdomen without and with intravenous contrast is recommended in six months. 3.An area of hypointense T2 weighted signal and progressive enhancement in the retroperitoneum near the origin of the superior mesenteric artery which measures 4.8 cm is nonspecific. 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 Lymphoma is in the differential but considered much less likely. Close attention on the future follow-up imaging is recommended. 4.Cirrhosis with sequelae of portal hypertension including small esophageal varices, moderate splenomegaly, and trace ascites. The mild diffuse bowel wall thickening is likely due to portal hypertension as well. 5.Cholelithiasis without acute cholecystitis. Signed: Sb Pan MDReport Verified Date/Time: 01/21/2021 11:45:26 Reading Location: [address] Reading Room abdomen 2021-01- Interface, External [facility] with/without IV 05 Ris In - 01/21/2021 [facility] - contrast 11:45:00 11:47 AM CSTFINAL Medical REPORT PATIENT ID: Center [id number] TECHNIQUE: MRI of the abdomen WITHOUT and WITH intravenous contrast. INDICATION: Unlisted Reason for Examcirrhosis COMPARISON: Abdomen ultrasound on 09/15/2020. FINDINGS: LOWER THORAX: Unremarkable LIVER: Cirrhotic liver morphology. There are numerous subcentimeter arterially enhancing observation without correlate on other pre or post gadolinium sequences. Sampling Expert observations as follows:*0.5 cm segment VIII observation (arterial axial image 85). LI-RADS 2*0.5 cm segment VII/ observation (arterial axial image 80). LI-RADS 2*0.6 cm segment observation (arterial axial image 74). This observation is central within the liver and rounded. LI-RADS 3*0.6 cm segment IV observation (arterial axial image 72). LI-RADS 2 BILIARY: Cholelithiasis. No gallbladder wall thickening. No biliary ductal dilatation or filling defect.SPLEEN: The spleen measures 16 cm in craniocaudal dimension.PANCREAS: No focal masses or ductal dilatation. ADRENALS: No adrenal nodules.KIDNEYS/URE TERS: No hydronephrosis or solid mass lesions. A left lower pole simple renal cyst measures 0.7 cm. No routine follow-up imaging is recommended. PERITONEUM/RETROPER ITONEUM: Trace ascites. The area which is hypointense on T2-weighted imaging and progressively enhances in the retroperitoneum near the origin of the superior mesenteric artery measures 2.2 x 4.8 cm LYMPH NODES: No lymphadenopathy.VES SELS: The main portal vein is patent and measures 2 cm in diameter. Small esophageal varices. GI TRACT: Mild diffuse bowel wall thickening. BONES AND SOFT TISSUES: Gynecomastia. No focal suspicious osseous lesions. IMPRESSION: 1.No suspicious focal hepatic lesion. 2.An arterially enhancing 0.6 cm observation in segment does not washout or form a pseudocapsule. LI-RADS 3. A follow-up MRI of the abdomen without and with intravenous contrast is recommended in six months. 3.An area of hypointense T2 weighted signal and progressive enhancement in the retroperitoneum near the origin of the superior mesenteric artery which measures 4.8 cm is nonspecific. 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 Lymphoma is in the differential but considered much less likely. Close attention on the future follow-up imaging is recommended. 4.Cirrhosis with sequelae of portal hypertension including small esophageal varices, moderate splenomegaly, and trace ascites. The mild diffuse bowel wall thickening is likely due to portal hypertension as well. 5.Cholelithiasis without acute cholecystitis. Signed: Sb Pan MDReport Verified Date/Time: 01/21/2021 11:45:26 Reading Location: [address] Reading Room Mitochondrial Antibodies, M2 2020-09-28 14:23:00 Test Item Value Reference Range Interpretation Comme nts Mitochondria M2 Ab <20.0 See Note: U Reference Range:NEGATIVE: < (test code = 0874278) OR = 2 0.0EQUIVOCAL: 20.1-24.9POSITI VE: > OR = 25.0 MEL (test code = MEL) Performing Lab EZ [facility] [address] [place] [id number] Lynn Perez MD, PhD, ROGER [facility] CenterActin (Smooth Muscle) Antibody, [id number] 23:33:00 Test Item Value Reference Range Interpretation Comments Anti-Smooth <20 See Note: U Reference Range :<20 Muscle Ab NEGATIVE> O R = 20 (test code = POSITIVE Antibo dies ) recognizing act in are the main compon entof smooth muscle antibodies asso ciated withautoimmune liver disease. Actin antibodies aref ound in approximatel y 75% of patients withautoimmune hepatitis (AIH) type 1, approximatel y65% of patients wit h autoimmune cholangitis,leia roxima tely 30% of pat ients with primary biliarycirrhosi s, and approximately 2 % of healthy people. High values are clos kristine correlated with AIH type 1. MEL (test code Performing Lab = MEL) EZ [facility] [address] [place] [id number] Lynn Perez MD, PhD, ROGER [facility] CenterCeruloplasmin2020-11-05 14:30:00 Test Item Value Reference Range Interpretation Comments Ceruloplasmin (test code 33 mg/dL 18-36 = 20200110) MEL (test code = MEL) Performing Lab *[facility] [place] [facility], [address] [place] [address] Mely Hudson MD [facility] CenterAnti-Nuclear Antibody (VANESSA)2020 11:00:00 Test Item Value Reference Range Interpretation Comments VANESSA (test code = 18136-7) Positive Negative A MEL (test code = MEL) Test performed by IFA method. Lab Interpretation (test Abnormal code = 58429-0) [facility] CenterANA Titer & [id number] 11:00:00 Test Item Value Reference Range Interpretation Comments VANESSA Titer (test code = 37367-4) 1:160 VANESSA Pattern (test code = 1781) Speckled [facility] CenterANTI-NUCLEAR ANTIBODY (VANESSA)2020 11:00:00 Test Item Value Reference Range Interpretation Comments ANTI-NUCLEAR ANTIBODY (VANESSA) (BEAKER) Positive Negative A (test code = 418) Test performed by IFA method.VANESSA TITER AND [id number] 11:00:00 Test Item Value Reference Range Interpretation Comments VANESSA TITER (BEAKER) (test code = :160 1541) VANESSA PATTERN (BEAKER) (test code = Speckled 1781) [id number] 15:01:00 Test Item Value Reference Range Interpretation Comments Ferritin (test code = 16.44 ng/mL 5-275 2276-4) MEL (test code = MEL) Room Service Clerk ID Lynda Verdin Lab Interpretation (test Normal code = 02009-3) [facility] CenterFERRITIN2020-10-29 15:01:00 Test Item Value Reference Range Interpretation Comments FERRITIN (BEAKER) (test code = 16.44 ng/mL 5.00-275.00 361) Room Service Clerk ID - ADEEL FHepatitis B surface [id number] 14:20:00 Test Item Value Reference Range Interpretation Comments Hep B S Ab (test code <8.0 See_Comment [Auto mated = 27930-2) message] The system which generated this result transmit roly reference range : <8.0 mIU/mL. Th e reference range was not used to interpret this result as normal/abnormal . MEL (test code = MEL) Room Service Clerk ID - ADEEL Verdin Lab Interpretation Normal (test code = 20510-8) [facility] CenterAlpha fetoprotein (AFP), tumor [id number] 14:20:00 Test Item Value Reference Range Interpretation Comments Alpha-Fetoprotein <2.0 See_Comment [Automate d (test code = 1834-1) message ] The system which generated this result transmit roly reference range : <10.0 ng/mL. Th e reference range was not used to interpret this result as normal/abnormal . MEL (test code = MEL) Room Service Clerk ID Lynda Verdin Lab Interpretation Normal (test code = 69605-1) [facility] CenterALPHA FETOPROTEIN (AFP), TUMOR [id number] 14:20:00 Test Item Value Reference Range Interpretation Comments ALPHA-FETOPROTEIN (BEAKER) (test code < ng/mL <10.0 = 1094) Room Service Clerk ID Lynda DENIS FHEPATITIS B SURFACE [id number] 14:20:00 Test Item Value Reference Range Interpretation Comments HEPATITIS B SURFACE ANTIBODY < mIU/mL <8.0 (BEAKER) (test code = 647) Room Service Clerk ID Lynda DENIS FHepatitis B surface [id number] 14:18:00 Test Item Value Reference Range Interpretation Comments HBsAg Screen (test code Nonreactive Nonreactive = 5195-3) MEL (test code = MEL) Specimen is considered negative for HBsAg. Lab Interpretation (test Normal code = 28118-9) [facility] CenterHepatitis C [id number] 14:18:00 Test Item Value Reference Range Interpretation Comments Hepatitis C Ab (test Nonreactive Nonreactive code = 82169-4) MEL (test code = MEL) Room Service Clerk TIFFANY Verdin Lab Interpretation (test Normal code = 61910-0) [facility] CenterHepatitis A antibody, [id number] 14:18:00 Test Item Value Reference Range Interpretation Comments Hep A IgG (test code = Reactive Nonreactive A 39891-4) MEL (test code = MEL) Room Service Clerk TIFFANY Verdin Lab Interpretation (test Abnormal code = 06917-0) [facility] CenterH[facility] A ANTIBODY, [id number] 14:18:00 Test Item Value Reference Range Interpretation Comments HEPATITIS A IGG ANTIBODY (BEAKER) Reactive Nonreactive A (test code = 2797) Room Service Clerk ID Lynda [place] FHEPATITIS B SURFACE [id number] 14:18:00 Test Item Value Reference Range Interpretation Comments HEPATITIS B SURFACE ANTIGEN (2) Nonreactive Nonreactive (BEAKER) (test code = 2585) Specimen is considered negative for HBsAg.HEPATITIS C [id number] 14:18:00 Test Item Value Reference Range Interpretation Comments HEPATITIS C ANTIBODY (BEAKER) Nonreactive Nonreactive (test code = 367) Room Service Clerk ID [facility] FHepatitis B core antibody, [id number] 14:17:00 Test Item Value Reference Range Interpretation Comments Hep B Core Total Ab Nonreactive Nonreactive (test code = 37089-7) MEL (test code = MEL) Room Service Clerk ID Lynda Verdin Lab Interpretation (test Normal code = 70061-8) [facility] CenterHepatitis A antibody, [id number] 14:17:00 Test Item Value Reference Range Interpretation Comments Hep A IgM (test code = Nonreactive Nonreactive 51431-8) MEL (test code = MEL) Room Service Clerk TIFFANY Verdin Lab Interpretation (test Normal code = 04009-6) [facility] CenterHEPATITIS B CORE ANTIBODY, [id number] 14:17:00 Test Item Value Reference Range Interpretation Comments HEPATITIS B CORE TOTAL ANTIBODY Nonreactive Nonreactive (BEAKER) (test code = 497) Room Service Clerk ID Lynda DENIS FHEPATITIS A ANTIBODY, [id number] 14:17:00 Test Item Value Reference Range Interpretation Comments HEPATITIS A IGM ANTIBODY (BEAKER) Nonreactive Nonreactive (test code = 498) Room Service Clerk ID Lynda DENIS [id number] 14:03:00 Test Item Value Reference Range Interpretation Comments A-1 Antitrypsin (test code 150.90 mg/dL 90-200 = 1825-9) MEL (test code = MEL) Room Service Clerk ID Lynda Verdin Lab Interpretation (test Normal code = 37283-2) [facility] CenterIron, TIBC, % sat. (without ferritin)2020-09-16 14:03:00 Test Item Value Reference Range Interpretation Comments Iron (test code = 2498-4) 22.0 ug/dL 40-160 L TIBC (test code = 2500-7) 441 ug/dL 250-450 Iron % Saturation (test 5 % 20-55 L code = 2502-3) MEL (test code = MEL) Room Service Clerk ID Lynda Verdin Lab Interpretation (test Abnormal code = 83650-7) [facility] CenterALPHA-1-[id number] 14:03:00 Test Item Value Reference Range Interpretation Comments ALPHA-1 ANTITRYPSIN (BEAKER) 150.90 mg/dL 90.00-200.00 (test code = 502) Room Service Clerk ID Lynda DENIS FIRON, TIBC, % SAT. (WITHOUT FERRITIN)2020-09-16 14:03:00 Test Item Value Reference Range Interpretation Comments IRON (BEAKER) (test code = 547) 22.0 ug/dL 40.0-160.0 L TOTAL IRON BINDING CAPACITY 441 ug/dL 250-450 (BEAKER) (test code = 769) IRON % SATURATION (2) (BEAKER) 5 % 20-55 L (test code = 2590) Room Service Clerk ID - ADEEL FBilirubin, [id number] 13:58:00 Test Item Value Reference Range Interpretation Comments Bilirubin, Direct (test 0.8 mg/dL 0.1-0.5 H code = 1968-7) MEL (test code = MEL) Room Service Clerk ID - ADEEL F Lab Interpretation (test Abnormal code = 46094-9) [facility] CenterBILIRUBIN, [id number] 13:58:00 Test Item Value Reference Range Interpretation Comments BILIRUBIN DIRECT (BEAKER) (test 0.8 mg/dL 0.1-0.5 H code = 706) Room Service Clerk ID - ADEEL FComprehensive Metabolic [id number] 13:57:00 Test Item Value Reference Range Interpretation Comments Protein, Total (test 7.2 See_Comment [Autom ated code = 2885-2) message] The system which generated this result transmit roly reference range : 6.0 - 8.3 gm/dL . The reference range was not u sed to interpret th is result as normal/abnormal . Albumin (test code = 3.2 g/dL 3.5-5 L 46015-1) Alkaline Phosphatase 217 U/L 40-150 H (test code = 6768-6) Total Bilirubin (test 1.2 mg/dL 0.2-1.2 code = 1975-2) Sodium (test code = 137 meq/L 984-166 7381-2) Potassium (test code 4.2 meq/L 3.5-5.1 = 2823-3) Chloride (test code = 109 meq/L 98-107 H 2074-0) CO2 (test code = 22 meq/L -2027-9) BUN (test code = 15 mg/dL 7- 3094-0) Creatinine (test code 0.89 mg/dL 0.57-1.25 = 2160-0) Glucose (test code = 104 mg/dL 70-105 2345-7) Calcium (test code = 8.6 mg/dL 8.4-10.2 18092-5) AST (test code = 59 U/L 5-34 H 1920-8) ALT (test code = 47 U/L 6-55 1742-6) EGFR (test code = 87 mL/min/1.73 sq [place] [address]-0) NOT ACCURATE CREATININE CLEARANCE IN PREDICTING GLOMERULAR FILTRATION RATE . ESTIMATED GFR I S NOT APPLICABLE FOR DIALYSIS PATIEN TS. MEL (test code = MEL) Room Service Clerk ID - ADEEL Verdin Lab Interpretation Abnormal (test code = 19900-2) [facility] automated [id number] 13:57:00 Test Item Value Reference Range Interpretation Comments WBC (test code = 6690-2) 6.2 See_Comment [A utomated message] The system [employer] generated this result transmitted ref erence range: 3.5 - 10 .5 K/L. The refe rence range was not u sed to interpret this result as normal/abnor mal. RBC (test code = 789-8) 4.17 See_Comment L [Au tomated message] The system [employer] generated this result transmitted ref erence range: 4.63 - 6 .08 M/L. The refe rence range was not u sed to interpret this result as normal/abnor mal. MCHC (test code = 786-4) 28.5 See_Comment L [A utomated message] The system [employer] generated this result transmitted ref erence range: 32.3 - 3 6.5 GM/DL. The refe rence range was not u sed to interpret this result as normal/abnor mal. Hematocrit (test code = 31.2 % 40.1-51 L 4544-3) MCV (test code = 787-2) 74.8 fL 79-92.2 L MCH (test code = 785-6) 21.3 pg 25.7-32.2 L RDW (test code = 788-0) 18.9 % 11.6-14.4 H Platelets (test code = 77 See_Comment L [Aut omated message] 777-3) The system [employer] generated this result transmitted ref erence range: 150 - 45 0 K/CU MM. The referen ce range was not u sed to interpret this result as normal/abnor mal. MPV (test code = [place] [address]-0) to abnormal Sunitha telet population distribution. nRBC (test code = 413) 0 See_Comment [Aut omated message] The system [employer] generated this result transmitted ref erence range: 0 - 0 /1 00 WBC. The refere nce range was not u sed to interpret this result as normal/abnor mal. % Neutros (test code = 56 % 429) % Lymphs (test code = 19 % 430) % Monos (test code = 14 % 431) % Eos (test code = 432) 10 % % Baso (test code = 437) 1 % # Neutros (test code = 3.52 See_Comment [Aut omated message] 670) The system [employer] generated this result transmitted ref erence range: 1.78 - 5 .38 K/L. The refe rence range was not u sed to interpret this result as normal/abnor mal. # Lymphs (test code = 1.19 See_Comment L [Auto mated message] 414) The system [employer] generated this result transmitted ref erence range: 1.32 - 3 .57 K/L. The refe rence range was not u sed to interpret this result as normal/abnor mal. # Monos (test code = 0.84 See_Comment H [Autom ated message] 415) The system [employer] generated this result transmitted ref erence range: 0.30 - 0 .82 K/L. The refe rence range was not u sed to interpret this result as normal/abnor mal. # Eos (test code = 416) 0.62 See_Comment H [Au tomated message] The system [employer] generated this result transmitted ref erence range: 0.04 - 0 .54 K/L. The refe rence range was not u sed to interpret this result as normal/abnor mal. # Baso (test code = 417) 0.05 See_Comment [A utomated message] The system [employer] generated this result transmitted ref erence range: 0.01 - 0 .08 K/L. The refe rence range was not u sed to interpret this result as normal/abnor mal. Immature 0 % 0-1 Granulocytes-Relative (test code = 2801) Lab Interpretation (test Abnormal code = 53381-7) [facility] W/PLT COUNT & AUTO [id number] 13:57:00 Test Item Value Reference Range Interpretation Comments WHITE BLOOD CELL COUNT 6.2 K/ L 3.5-10.5 (BEAKER) (test code = 775) RED BLOOD CELL COUNT 4.17 M/ L 4.63-6.08 L (BEAKER) (test code = 761) HEMOGLOBIN (BEAKER) 8.9 GM/DL 13.7-17.5 L (test code = 410) HEMATOCRIT (BEAKER) 31.2 % 40.1-51.0 L (test code = 411) MEAN CORPUSCULAR VOLUME 74.8 fL 79.0-92.2 L (BEAKER) (test code = 753) MEAN CORPUSCULAR 21.3 pg 25.7-32.2 L HEMOGLOBIN (BEAKER) (test code = 751) MEAN CORPUSCULAR 28.5 GM/DL 32.3-36.5 L HEMOGLOBIN CONC (BEAKER) (test code = 752) RED CELL DISTRIBUTION 18.9 % 11.6-14.4 H WIDTH (BEAKER) (test code = 412) PLATELET COUNT (BEAKER) 77 K/CU MM 150-450 L (test code = 756) MEAN PLATELET VOLUME Unable to report due (BEAKER) (test code = to abn ormal Platelet 754) population distribution. NUCLEATED RED BLOOD 0 /100 WBC 0-0 CELLS (BEAKER) (test code = 413) NEUTROPHILS RELATIVE 56 % PERCENT (BEAKER) (test code = 429) LYMPHOCYTES RELATIVE 19 % PERCENT (BEAKER) (test code = 430) MONOCYTES RELATIVE 14 % PERCENT (BEAKER) (test code = 431) EOSINOPHILS RELATIVE 10 % PERCENT (BEAKER) (test code = 432) BASOPHILS RELATIVE 1 % PERCENT (BEAKER) (test code = 437) NEUTROPHILS ABSOLUTE 3.52 K/ L 1.78-5.38 COUNT (BEAKER) (test code = 670) LYMPHOCYTES ABSOLUTE 1.19 K/ L 1.32-3.57 L COUNT (BEAKER) (test code = 414) MONOCYTES ABSOLUTE 0.84 K/ L 0.30-0.82 H COUNT (BEAKER) (test code = 415) EOSINOPHILS ABSOLUTE 0.62 K/ L 0.04-0.54 H COUNT (BEAKER) (test code = 416) BASOPHILS ABSOLUTE 0.05 K/ L 0.01-0.08 COUNT (BEAKER) (test code = 417) IMMATURE 0 % 0-1 GRANULOCYTES-RELATIVE PERCENT (BEAKER) (test code = 2801) COMPREHENSIVE METABOLIC [id number] 13:57:00 Test Item Value Reference Range Interpretation Comments TOTAL PROTEIN 7.2 gm/dL 6.0-8.3 (BEAKER) (test code = 770) ALBUMIN (BEAKER) 3.2 g/dL 3.5-5.0 L (test code = 1145) ALKALINE PHOSPHATASE 217 U/L 40-150 H (BEAKER) (test code = 346) BILIRUBIN TOTAL 1.2 mg/dL 0.2-1.2 (BEAKER) (test code = 377) SODIUM (BEAKER) (test 137 meq/L 136-145 code = 381) POTASSIUM (BEAKER) 4.2 meq/L 3.5-5.1 (test code = 379) CHLORIDE (BEAKER) 109 meq/L 98-107 H (test code = 382) CO2 (BEAKER) (test 22 meq/L 22-29 code = 355) BLOOD UREA NITROGEN 15 mg/dL 7-21 (BEAKER) (test code = 354) CREATININE (BEAKER) 0.89 mg/dL 0.57-1.25 (test code = 358) GLUCOSE RANDOM 104 mg/dL 70-105 (BEAKER) (test code = 652) CALCIUM (BEAKER) 8.6 mg/dL 8.4-10.2 (test code = 697) AST (SGOT) (BEAKER) 59 U/L 5-34 H (test code = 353) ALT (SGPT) (BEAKER) 47 U/L 6-55 (test code = 347) EGFR (BEAKER) (test 87 mL/min/1.73 ESTIMA ROLY GFR IS code = 1092) sq m NOT ACCURATE CREATININE CLEARANCE IN PREDICTING GLOMERULAR FILTRATION RATE . ESTIMATED GFR I S NOT APPLICABLE FOR DIALYSIS PATIEN TS. Room Service Clerk TIFFANY - ADEEL FPro-time/[id number] 13:44:00 Test Item Value Reference Interpretation Comments Range Protime (test code = 15.8 See_Comment H [Autom ated 5902-2) message] The system which generated this result transmitted reference range : 11.9 - 14.2 seconds. The reference range was not used to interpret this result as normal/abnormal . INR (test code = 1.30 See_Comment [Automated 6301-6) message] The system which generated this result transmitted reference range : <=5.90. The reference range was not used to interpret this result as normal/abnormal . MEL (test code = Effective 04/16/2019: MEL) PT Reference Range ChangeNew: 11.9-14.2 Previous: 11.7-14.7 RECOMMENDED COUMADIN/WARFARIN INR THERAPY RANGESSTANDARD DOSE: 2.0-3.0 Includes: PROPHYLAXIS for venous thrombosis, systemic embolization; TREATMENT for venous thrombosis and/or pulmonary embolus.HIGH RISK: Target INR is 2.5-3.5 for patients wiht mechanical heart valves. Lab Interpretation Abnormal (test code = 48589-3) [facility]/[id number] 13:44:00 Test Item Value Reference Range Interpretation Comments PROTIME (BEAKER) (test code = 15.8 seconds 11.9-14.2 H 759) INR (BEAKER) (test code = 370) 1.30 <=5.90 Effective 04/16/2019: PT Reference Range ChangeNew: 11.9-14.2 Previous: 11.7- 14.7RECOMMENDED COUMADIN/WARFARIN INR THERAPY RANGESSTANDARD DOSE: 2.0-3.0 Includes: PROPHYLAXIS for venous thrombosis, systemic embolization; TREATMENT for venous thrombosis and/or pulmonary embolus.HIGH RISK: Target INR is2.5-3.5 for patients wiht mechanical heart valves.
[2021-02-21 15:26] LABS: Absolute Lymphocytes (CBC) 1.3 K/uL (0.7-4.9); Basophils % 1.5 % (0-1.3); Hematocrit 33.2 % (39.6-49.0); Lymphocytes % 19.7 % (15.3-44.8); MPV 10.1 fL (7.6-11.3); RBC Red Blood Cell Count 4.46 M/uL (4.33-5.43)
[2021-02-21 15:37] LABS: Protime INR 1.32
[2021-02-21 15:44] LABS: Albumin 2.9 g/dL (3.4-5.0); Bilirubin Direct 0.8 mg/dL (0-0.2); Bilirubin Total 1.7 mg/dL (0.2-1.0); Magnesium 2.4 mg/dL (1.8-2.4); Potassium 3.9 mmol/L (3.5-5.1); Protein, Total 7.4 g/dL (6.4-8.2); Troponin (Emerg Dept Use Only) 0.02 ng/mL (0.0-0.045)
[2021-02-21] MEDS ORDERED: LACTULOSE 20 GM/30 ML UCUP ONE (16:22)
[2021-02-21] MEDS ORDERED: NA CHLORIDE 0.9% 500 ML ONE (16:22)
--- NOTE | 2021-02-21 16:32 | RAD REPORT ---
EXAM DESCRIPTION: RAD - Chest Single View - 02/21/2021 4:08 pm CLINICAL HISTORY: Dizziness Chest pain. COMPARISON: Chest Single View dated 09/15/2020; Chest Single View dated 09/14/2020; Chest Single Vie w dated 11/13/2019 FINDINGS: Portable technique limits examination quality. The lungs are grossly clear. The heart is normal in size. No displaced fractures. IMPRESSION: No acute intrathoracic process suspected.
[2021-02-21] MEDS ORDERED: NA CHLORIDE 0.9% 1,000 ML ONE (17:21)
--- NOTE | 2021-02-21 17:46 | ER ---
Nurse's Notes [facility] Name: Chinedu Rosenberg Age: 60 yrs Sex: Male : 1960 Arrival Date: 02/21/2021 Time: 14:26 Bed 2 Private MD: Diagnosis: Other cirrhosis of liver-Hepatic encephalopathy Presentation: 02/21 14:32 Chief complaint: Patient states: Confused, not able to remember how to do ADL's, shaky ll1 since yesterday. Takes lactulose, but it doesn't seem to be helping this time. Coronavirus screen: Client denies travel out of the [place] in the last 14 days. At this time, the client does not indicate any symptoms associated with coronavirus-19. Ebola Screen: Patient denies travel to an Ebola-affected area in the 21 days before illness onset. Initial Sepsis Screen: Does the patient meet any 2 criteria? HR > 90 bpm. No. Patient's initial sepsis screen is negative. Does the patient have a suspected source of infection? Yes: Acute abdominal pain. Risk Assessment: Do you want to hurt yourself or someone else? Patient reports no desire to harm self or others. Onset of symptoms was February 20, 2021. 14:32 Method Of Arrival: Ambulatory ll1 14:32 Acuity: EDUARDO 2 ll1 Historical: - Allergies: 14:37 No Known Allergies; ll1 - PMHx: 14:37 Cirrhosis; Diabetes - NIDDM; Hypertension; ll1 - PSHx: 14:37 None; ll1 - Immunization history:: Flu vaccine is up to date. . - Social history:: Smoking status: Patient reports the use of cigarette tobacco products, Patient/guardian denies using tobacco. Screenin:11 Abuse screen: Denies threats or abuse. Nutritional screening: No deficits noted. tw2 Tuberculosis screening: No symptoms or risk factors identified. Fall Risk Secondary diagnosis (15 points) impaired mobility. Assessment: 15:15 General: Appears in no apparent distress. obese, well groomed, Behavior is calm, tw2 cooperative, appropriate for age. Pain: Denies pain. Neuro: Level of Consciousness is awake, alert, obeys commands, confused, "confusion at times" per pts daughter. Cardiovascular: Capillary refill < 3 seconds Patient's skin is warm and dry. Respiratory: Airway is patent Respiratory effort is even, unlabored, Respiratory pattern is regular, symmetrical. GI: No signs and/or symptoms were reported involving the gastrointestinal system. : No signs and/or symptoms were reported regarding the genitourinary system. EENT: No signs and/or symptoms were reported regarding the EENT system. Derm: No signs and/or symptoms reported regarding the dermatologic system. Musculoskeletal: Range of motion: intact in all extremities. 16:15 Reassessment: Patient appears in no apparent distress at this time. No changes from tw2 previously documented assessment. Patient and/or family updated on plan of care and expected duration. Pain level reassessed. 17:13 Reassessment: Patient appears in no apparent distress at this time. No changes from tw2 previously documented assessment. Patient and/or family updated on plan of care and expected duration. Pain level reassessed. 18:04 Reassessment: Patient appears in no apparent distress at this time. No changes from hb previously documented assessment. Patient and/or family updated on plan of care and expected duration. Pain level reassessed. Vital Signs: 14:32 BP 121 / 73; Pulse 113; Resp 17; Temp 97.4; Pulse Ox 98% ; Weight 99.79 kg; Height 5 ll1 ft. 8 in. (172.72 cm); Pain 0/10; 15:21 BP 133 / 83; Pulse 106; Resp 17; Pulse Ox 98% on R/A; tw2 16:16 BP 122 / 55; Pulse 105; Resp 17; Pulse Ox 98% on R/A; tw2 17:13 BP 146 / 75; Pulse 103; Resp 18; Pulse Ox 99% on R/A; tw2 18:05 BP 143 / 76; Pulse 96; Resp 17; Pulse Ox 96% on R/A; tw2 14:32 Body Mass Index 33.45 (99.79 kg, 172.72 cm) ll1 ED Course: 14:26 Patient arrived in ED. ds1 14:36 Triage completed. ll1 14:37 Arm band placed on. ll1 14:54 Héctor Wallis NP is PHCP. pm1 14:54 Harlan Saeed MD is Attending Physician. pm1 15:11 Jacquelin Chisholm RN is Primary Nurse. tw2 15:11 Side rails up X2. Adult w/ patient. shelter advocate on. Pulse ox on. NIBP on. Warm tw2 blanket given. 15:18 Inserted saline lock: 20 gauge in right forearm, using aseptic technique. Blood tw2 collected. 16:08 XRAY Chest (1 view) In Process Unspecified. EDMS 18:04 No provider procedures requiring assistance completed. IV discontinued, intact, hb bleeding controlled, No redness/swelling at site. Administered Medications: 16:15 Drug: Lactulose 30 grams Volume: 45 ml; Route: PO; tw2 17:13 Follow up: Response: No adverse reaction tw2 16:16 Drug: NS 0.9% 500 ml Route: IV; Rate: bolus; Site: right forearm; tw2 17:11 Follow up: Response: No adverse reaction; IV Status: Completed infusion; IV Intake: tw2 500ml 17:10 Drug: NS 0.9% 1000 ml Route: IV; Rate: 1000 ml; Site: right forearm; tw2 17:54 Follow up: Response: No adverse reaction; IV Status: Completed infusion; IV Intake: tw2 1000ml Intake: 17:11 IV: 500ml; Total: 500ml. tw2 17:54 IV: 1000ml; Total: 1500ml. tw2 Outcome: 17:46 Discharge ordered by MD. pm1 18:04 Discharged to home ambulatory, with family. hb 18:04 Condition: stable 18:04 Discharge instructions given to patient, family, Instructed on discharge instructions, follow up and referral plans. medication usage, Demonstrated understanding of instructions, follow-up care, medications, Prescriptions given X 1. 18:05 Patient left the ED. hb Signatures: Dispatcher [employer] EDIA Arelis Tamayo ds1 Héctor Wallis, HARVEY COMMIS CHEF pm1 Theresa Antonio RN RN hb Jacquelin Chisholm RN RN tw2 Norm Roberts RN RN ll1 Corrections: (The following items were deleted from the chart) 18:05 18:04 Discharge instructions given to patient, family, Instructed on discharge hb instructions, follow up and referral plans. medication usage, Demonstrated understanding of instructions, follow-up care, medications, hb
--- NOTE | 2021-02-21 17:47 | EDPHYS ---
Physician Documentation [facility] Name: Chinedu Rosenberg Age: 60 yrs Sex: Male : 1960 Arrival Date: 02/21/2021 Time: 14:26 Bed 2 Private MD: ED Physician Harlan Saeed HPI: 02/21 15:09 This 60 yrs old Male presents to ER via Ambulatory with complaints of pm1 Confusion, Dizziness. 15:09 The patient presents with confusion. Onset: The symptoms/episode began/occurred pm1 yesterday. Possible causes: Patient forgot his medication yesterday, lactulose. Associated signs and symptoms: Pertinent positives: dizziness, Pertinent negatives: abdominal pain, chest pain, headache, numbness, shortness of breath, tingling, weakness. Current symptoms: In the emergency department the patient's symptoms are unchanged from the initial presentation. Patient's baseline: Neuro: alert and fully oriented, Motor: no deficits, Ambulation: walks without assistance, Speech: normal. The patient has experienced a previous episode, many years ago. The patient has not recently seen a physician, the patient's primary care provider is Dr. Yepez. Historical: - Allergies: 14:37 No Known Allergies; ll1 - PMHx: 14:37 Cirrhosis; Diabetes - NIDDM; Hypertension; ll1 - PSHx: 14:37 None; ll1 - Immunization history:: Flu vaccine is up to date. . - Social history:: Smoking status: Patient reports the use of cigarette tobacco products, Patient/guardian denies using tobacco. ROS: 15:09 Constitutional: Negative for fever, chills, and weight loss, Cardiovascular: Negative pm1 for chest pain, palpitations, and edema, Respiratory: Negative for shortness of breath, cough, wheezing, and pleuritic chest pain, Abdomen/GI: Negative for abdominal pain, nausea, vomiting, diarrhea, and constipation, Back: Negative for injury and pain, MS/Extremity: Negative for injury and deformity, Skin: Negative for injury, rash, and discoloration. 15:09 Neuro: Positive for dizziness, Confusion, Negative for headache, numbness, tingling, weakness. Exam: 15:09 Constitutional: This is a well developed, well nourished patient who is awake, alert, pm1 and in no acute distress. Head/Face: Normocephalic, atraumatic. Eyes: Pupils equal round and reactive to light, extra-ocular motions intact. Lids and lashes normal. Conjunctiva and sclera are non-icteric and not injected. Cornea within normal limits. Periorbital areas with no swelling, redness, or edema. 15:09 Back: No spinal tenderness. No costovertebral tenderness. Full range of motion. 15:09 Skin: Warm, dry with normal turgor. Normal color with no rashes, no lesions, and no evidence of cellulitis. MS/ Extremity: Pulses equal, no cyanosis. Neurovascular intact. Full, normal range of motion. 15:09 Cardiovascular: Exam negative for acute changes, Rate: normal, Rhythm: regular, Pulses: no pulse deficits are appreciated. 15:09 Respiratory: Exam negative for acute changes, respiratory distress, shortness of breath, Breath sounds: are clear throughout. 15:09 Abdomen/GI: Exam negative for acute changes, Inspection: abdomen appears normal, Palpation: abdomen is soft and non-tender, in all quadrants. 15:09 Neuro: Exam negative for acute changes, Orientation: is normal, to person, place, time \T\ situation. Mentation: is normal, Motor: is normal, moves all fours. Vital Signs: 14:32 BP 121 / 73; Pulse 113; Resp 17; Temp 97.4; Pulse Ox 98% ; Weight 99.79 kg; Height 5 ll1 ft. 8 in. (172.72 cm); Pain 0/10; 15:21 BP 133 / 83; Pulse 106; Resp 17; Pulse Ox 98% on R/A; tw2 16:16 BP 122 / 55; Pulse 105; Resp 17; Pulse Ox 98% on R/A; tw2 17:13 BP 146 / 75; Pulse 103; Resp 18; Pulse Ox 99% on R/A; tw2 18:05 BP 143 / 76; Pulse 96; Resp 17; Pulse Ox 96% on R/A; tw2 14:32 Body Mass Index 33.45 (99.79 kg, 172.72 cm) ll1 MDM: 15:04 Patient medically screened. pm1 17:05 ED course: Patient reports that he feels better and does not want to stay in the pm1 hospital. Patient's daughter is at bedside and says that her father is at her baseline mental status. Patient forgot to take his lactulose yesterday and he also prepared for an EGD today with Dr. Degroot. Discussed plan of care with patient and daughter. Will hydrate the patient before discharging him to follow up with GI. 17:15 Data reviewed: vital signs. Data interpreted: Pulse oximetry: on room air is 99 %. pm1 Interpretation: normal. 17:44 Counseling: I had a detailed discussion with the patient and/or guardian regarding: the pm1 historical points, exam findings, and any diagnostic results supporting the discharge/admit diagnosis, lab results, radiology results, the need for outpatient follow up, to return to the emergency department if symptoms worsen or persist or if there are any questions or concerns that arise at home. 02/21 15:08 Order name: AMMONIA pm1 02/21 15:08 Order name: Basic Metabolic Panel; Complete Time: 15:45 pm1 02/21 15:08 Order name: CBC with Diff pm1 02/21 15:08 Order name: LFT's; Complete Time: 15:45 pm1 02/21 15:08 Order name: Magnesium; Complete Time: 15:45 pm1 02/21 15:08 Order name: NT PRO-BNP; Complete Time: 15:45 pm1 02/21 15:08 Order name: PT-INR; Complete Time: 15:58 pm1 02/21 15:08 Order name: Troponin (emerg Dept Use Only); Complete Time: 15:45 pm1 02/21 15:08 Order name: XRAY Chest (1 view); Complete Time: 16:33 pm1 02/21 15:08 Order name: Lipase; Complete Time: 15:45 pm1 02/21 15:09 Order name: Ammonia; Complete Time: 15:44 EDMS 02/21 15:08 Order name: EKG; Complete Time: 15:09 pm1 02/21 15:08 Order name: Cardiac monitoring; Complete Time: 15:21 pm1 02/21 15:08 Order name: EKG - Nurse/Tech; Complete Time: 15:21 pm1 02/21 15:08 Order name: IV Saline Lock; Complete Time: 15:21 pm1 02/21 15:08 Order name: Labs collected and sent; Complete Time: 15:21 pm1 02/21 15:08 Order name: O2 Per Protocol; Complete Time: 15:21 pm1 04 15:08 Order name: O2 Sat Monitoring; Complete Time: 15:21 pm1 Administered Medications: 16:15 Drug: Lactulose 30 grams Volume: 45 ml; Route: PO; tw2 17:13 Follow up: Response: No adverse reaction tw2 16:16 Drug: NS 0.9% 500 ml Route: IV; Rate: bolus; Site: right forearm; tw2 17:11 Follow up: Response: No adverse reaction; IV Status: Completed infusion; IV Intake: tw2 500ml 17:10 Drug: NS 0.9% 1000 ml Route: IV; Rate: 1000 ml; Site: right forearm; tw2 17:54 Follow up: Response: No adverse reaction; IV Status: Completed infusion; IV Intake: tw2 1000ml Disposition: 18:06 Co-signature as Attending Physician, Harlan Saeed MD. rn Disposition: 02/21/21 17:46 Discharged to Home. Impression: Other cirrhosis of liver - Hepatic encephalopathy. - Condition is Stable. - Discharge Instructions: Hepatic Encephalopathy. - Prescriptions for Lactulose 10 gram/15 mL Oral Solution - take 30 milliliter by ORAL route once daily; 300 milliliter. - Medication Reconciliation Form, Thank You Letter, Antibiotic Education, Prescription Opioid Use form. - Follow up: Emergency Department; When: As needed; Reason: Worsening of condition. Follow up: Private Physician; When: 2 - 3 days; Reason: Recheck today's complaints, Continuance of care, Re-evaluation by your physician. - Problem is new. - Symptoms have improved. Signatures: Dispatcher [employer] EDMS Harlan Saeed MD MD rn Marinas, Patrick, HARVEY AVIONIC TECHNICIAN pm1 Theresa Antonio RN RN Jacquelin Chisholm, RN RN tw2 Norm Roberts RN RN ll1 Corrections: (The following items were deleted from the chart) 18:05 17:46 02/21/2021 17:46 Discharged to Home. Impression: Other cirrhosis of liver - hb Hepatic encephalopathy. Condition is Stable. Forms are Medication Reconciliation Form, Thank You Letter, Antibiotic Education, Prescription Opioid Use. Follow up: Emergency Department; When: As needed; Reason: Worsening of condition. Follow up: Private Physician; When: 2 - 3 days; Reason: Recheck today's complaints, Continuance of care, Re-evaluation by your physician. Problem is new. Symptoms have improved. pm1
[2021-02-21 18:17] VITALS: TEMP 97.4
[2021-02-21 18:22] VITALS: BP 143/76; O2SAT 96
[2021-02-21 20:45] LABS: Anisocytosis 3+; Blood Morphology Comment NOTED (NOT SEEN); Platelet Estimate DECR; White Blood Cell Scan OK (OK)
--- NOTE | 2021-02-22 08:10 | EKG ---
Test Date: 2021-02-21 Test Time: 15:25:30 Quarry Supervisor Dimension Stone: PILI MEASUREMENT RESULTS: Intervals: Rate: 101 ME: 144 QRSD: 134 QT: 396 QTc: 513 [place]: P: 42 ME: 144 QRS: -13 T: 17 INTERPRETIVE STATEMENTS: Sinus tachycardia Right bundle branch block Septal infarct, age undetermined Abnormal ECG Compared to ECG 09/15/2020 08:19:57 Myocardial infarct finding now present Sinus rhythm no longer present Electronically Signed On 02-22-21 08:08:16 CDT by Wiliam Wagner
== END 2021-02-21 18:05 | disposition home or self-care (01) ==
LOC: ER 14:25
DX: K72.90 Hepatic failure, unspecified without coma (principal); K74.60 Unspecified cirrhosis of liver; E11.9 Type 2 diabetes mellitus without complications; I10 Essential (primary) hypertension
CPT/HCPCS: 93005; 85025; 80048; 36415; 82140; 83735; 85610; 80076; 84484; 83690; 83880; 71045; J7040; J7030; 96360; 96361; 99284

== ENCOUNTER 2022-10-10 08:44 | Emergency (ER) | payer BC ==
--- OUTSIDE RECORDS SUMMARY | 2022-10-10 08:51 | XMS REPORT | Continuity of Care Document ---
:1960 Author Organization [facility] t Address [address] [place] [place] [address] Care Team Providers Name Role Phone Lucho BAILEY, Tomer Woodruff Primary Care Physician [phone] Gaby Alvarez MD Attending Clinician Tristin So MD Attending Clinician Gayle Garcia RN Attending Clinician Unavailable Giovanny BAILEY, Eren Attending Clinician Charo Hoffmann MD, Maldonado Attending Clinician [phone] Margarette BAILEY, Allyson Attending Clinician Rudolph BAILEY, Dorothy Loyd Attending Clinician Santo Drew RN Attending Clinician Unavailable Donnell BAILEY, Dulce Benson Attending Clinician Isabelle BAILEY, Galina Attending Clinician Ebony Gerber Attending Clinician Unavailable Sarabjit Bravo Attending Clinician Laure ROSALES, Key Ayala Attending Clinician Unavailable Kiley BAILEY, Sarah Reich Attending Clinician Provider, Unknown Attending Clinician Unavailable Catalina Zarco MA Attending Clinician Unavailable Jolynn Smith MA Attending Clinician Unavailable Dustin Germain Attending Clinician Unavailable Aldo SERVICE CLEANER, Luz Marina Bentley Attending Clinician David [facility], Pietro Attending Clinician Unavailable Daisy Dick MA Attending Clinician Unavailable Adela Chávez RN Attending Clinician Unavailable SHARI SANTIAGO Attending Clinician Unavailable MALDONADO HERNANDEZ Admitting Clinician Unavailable SARAH CAO Admitting Clinician Unavailable MD GALINA NEUMANN Admitting Clinician Unavailable MD DULCE JACOBO Admitting Clinician Unavailable Payers Payer Name Policy Type Policy Number Effective Date Expiration Date S kim [employer]BS PPO POS EPO [id number] 2019 00:00:00 CHOICE Problems Condition Condition Condition Status Onset Resolution Last Treating Co mments Source Name Details Category Date Date Treatment Clinician Date YOANA (acute YOANA (acute Disease Active 2021-11 M ethodi kidney kidney 0- st injury) injury) 00:00: Hospita 00 l 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 Added automatic ally from request for surgery [id number] Ascites Ascites Disease Active Methodi 04-26 st 00:00: Hospita 00 l Cirrhosis Cirrhosis Disease Active Met hodi 04-26 st 00:00: Hospita 00 l Other Other Disease Active 2019-[address] [facility] [address] cirrhosis cirrhosis 0-29 Assessmen L ukes of liver of liver 00:00: t & Plan: Med ical 00 [facility] g of this note might be different from the original. Based on clinical picture, labs and imaging. Likely related to WOOD. We will do labs to exclude other causes of liver disease and calculate MELD.Deco mpensated with hepatic encephalo reggie.We will do MRI liver protocol to check liver morpholog y.If his MELD score>15, we will evaluate for liver transplan t Metabolic Metabolic Disease Active 2019-11 [facility] syndrome syndrome 0- Assessapdma Panchal es 00:00: t & Plan: Medical [facility] g of this note might be different from the original. Needs control of diabetes. Advised weight loss by 10% in next6 months through life-styl e modificat ion-low sugar/low carbohydr ate diet Screening Screening Disease Active 2019-11 [facility] for for 0- Assesspadma Fiore endocrine, endocrine, 00:00: t & Plan: Medical metabolic metabolic 00 [facility] enter and and g of this immunity immunity note disorder disorder might be different from the original. Serologic al tests will be completed to determine the presence of immunity to hepatitis A and B. If found susceptib le she will be referred to her primary care provider to consider the administr ation of the appropria te vaccines. Portal Portal Disease Active 2019-11 Overview: Method i hypertensi hypertensi [address] on on 00:00: g of this Hospita 00 note l might be different from the original. Last Assessmen t & Plan: Formattin g of this note might be different from the original. 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 He is scheduled for EGD with his gastroent erologist Advised low salt high protein diet.He is on Spironola ctone 100 mg a day. Added Lasix 40 mg a day.Needs monitorin g of LFT Encephalop Encephalop Disease Active 2019-11 Overview : Methodi athy athy [address] 00:00: g of this Hospita 00 note l might be different from the original. Last Assessmen t & Plan: Formattin g of this note might be different from the original. Needs to adjust the dose of Lactulose to have 2-3 bowel movements a day. Continue Xifaxan.A dvised not to drive. Allergies, Adverse Reactions, Alerts Allergy Allergy Status Severity Reaction(s) Onset Inactive Treating Comm ents Source Name Type Date Date Clinician NO KNOWN Allergy Active [facility] Family History Family Member Diagnosis Comments Start Date Stop Date Source Natural brother Cirrhosis [facility] Natural brother Cirrhosis [facility] Natural mother Diabetes [facility] Natural mother Heart disease [facility] Social History Social Habit Start Date Stop Date Quantity Comments Source [facility] Alcohol Comment Medical C enter History [facility] Alcohol Std Drinks Hospit al History [facility] Alcohol intake 2022-08-17 2022-08-17 Lifetime Sabianism 00:00:00 00:00:00 non-drinker Hospital (finding) History SDOH 2021-04-26 2021-04-26 1 [facility] Alcohol Frequency 00:00:00 00:00:00 Hospita l Tobacco use and 2020-09-16 2020-09-16 Never used [facility] exposure 00:00:00 00:00:00 [facility] Sex Ass[birth year] At [birth year] Sabianism 00:00:00 00:00:00 Hospital Smoking Status Start Date Stop Date Source Never smoked tobacco [facility] H ospital Medications Ordered Filled Start Stop Current Ordering Indication Dosage Frequency Signature Comments Components Source Medication Medication Date Date Medication? Clinician (SIG) Name Name empaglifloz 2021-11 Yes 1{tbl} Q.5D Take 1 Me thodi in-metformi 0-[address] n 16:02: mouth 2 Hospita (Synjardy) 03 (two) l 12.5-1,000 times a mg tablet day. mesalamine 2021-11 Yes 1.5g QD Take 4 Metho di (APRISO) 0-[address] 0.375 gram 16:02: (1.5 g Hospi ta 24 hr 03 total) by l capsule mouth daily. omeprazole 2021-11 Yes 40mg QD Take 1 Metho di (PriLOSEC) 0-[address] 40 MG 16:02: (40 mg Hospita capsule 03 total) by l mouth daily. riFAXimin 2021-11 Yes 550mg Q.5D Take 1 Metho di (XIFAXAN) 0-[address] 550 mg 16:02: (550 mg Hospita tablet 03 total) by l mouth 2 (two) times a day. methIMAzole 2021-11 Yes 2.5mg QD Take 2.5 M ethodi (TAPAZOLE) 0-[address] 5 MG tablet 16:02: mouth Hospi ta 03 daily. l torsemide 2021-11- Yes 40mg QD Take 40 mg M ethodi 40 mg 0-25 11-[address] tablet 00:00: 05:59 daily for Hospi ta 00 :00 30 days. l furosemide 2021-11- No 40mg QD Take 1 Meth ken (LASIX) 40 0-24 10-24 tablet (40 st mg tablet 16:02: 00:00 mg total) Ho spita 23 :00 by mouth l daily. lactulose 2021-11 Yes 20g Q.125D Take 30 mL Methodi 10 gram/15 0-24 ([address] mL (15 mL) 16:02: total) by Ho spita solution 20 mouth l every 3 (three) hours. glimepiride 2021-11 Yes 4mg Q.5D Take 4 mg M ethodi (AMARYL) 4 0-[address] MG tablet 16:02: (two) Hospita 20 times a l day. spironolact 2021-11 Yes 100mg Q.5D Take 1 Met hodi one 0-[address] (ALDACTONE) 16:02: (100 mg Hos larry 100 MG 20 total) by l tablet mouth 2 (two) times a day. riFAXimin 2021-11 No 200mg Q.5D Take 200 Me thodi (XIFAXAN) 0-21 10-[address] 200 mg 14:42: 00:00 mouth 2 Hospita tablet 02 :00 (two) l times a day. omeprazole 2021-11 No 10mg QD Take 10 mg Methodi (PriLOSEC) 0-21 10-[address] 10 MG 14:41: 00:00 daily. Hospita capsule 37 :00 l mesalamine 2021-11- No 1.2g QD Take 1,200 Methodi (LIALDA) 0-21 10-[address] 1.2 gram EC 14:40: 00:00 mouth Hosp josue tablet 15 :00 daily with l breakfast. empaglifloz 2021-11- No Q.5D Take by Me thodi in-metformi 0-21 10-[address] 14:37: 00:00 (two) Hospita (Synjardy) 27 :00 times a l 5-1,000 mg day. tablet lactulose 2019-11 Yes 20g [id number] Take [address] [facility] (CHRONULAC) 0-29 [id number] by mouth 3 [facility] gram/15 10:42: 3D (three) Medi shayy mL (15 mL) 34 times Center solution daily. spironolact 2019-11 Yes 100mg QD Take [address] one 0-29 mg by [facility] (ALDACTONE) 10:42: mouth Medic al 100 MG 34 daily. Center tablet Synjardy 2019-[address] 12.5-1,000 0-26 [facility] mg Tab 00:00: Medical 00 Center Xifaxan 550 2019-11 Yes 1{tbl} Q.5D Take [address] mg Tab 0-20 tablet by [facility] 00:00: mouth 2 Medical 00 (two) Center times daily. ramipriL 2019-0 Yes 10mg Q.5D Take [address] (ALTACE) 10 9-24 by mouth 2 Nelda kes MG capsule 00:00: (two) Medica l 00 times Center daily. omeprazole Yes 40mg QD Take [address] (PriLOSEC) 9-21 by mouth [facility] 40 MG 00:00: daily. Medical capsule 00 Center glimepiride Yes 4mg Q.5D Take [address] (AMARYL) 4 9-17 by mouth 2 [place] es MG tablet 00:00: (two) Medical 00 times Center daily. Immunizations Ordered Immunization Filled Immunization Date Status Commen ts Source Name Name FLUCSAMSONVAX QUAD PF 2022-09-[address] 00:00:00 Hospital Vital Signs Vital Name Observation Time Observation Value Comments Source HEIGHT 2020-09-16 10:41:00 167.6 cm WEIGHT 2020-09-16 10:41:00 110.088 kg HEIGHT 2020-09-16 10:41:00 167.6 cm WEIGHT 2020-09-16 10:41:00 110.088 kg Systolic blood 2022-09-11 16:05:00 110 mm[Hg] Method ist Hospital pressure Diastolic blood 2022-09-11 16:05:00 60 mm[Hg] Metho dist Hospital pressure Heart rate 2022-09-11 16:05:00 80 /min [facility] Body temperature 2022-09-11 16:05:00 36 Loyda [facility] Respiratory rate 2022-09-11 16:05:00 16 /min [facility] Oxygen saturation in 2022-09-11 16:05:00 100 /min [facility] Arterial blood by Pulse oximetry Body weight 2022-09-11 12:20:00 100.8 kg [facility] BMI 2022-09-11 12:20:00 33.79 kg/m2 [facility] Body height 2022-09-08 15:01:00 172.7 cm [facility] Procedures Procedure Date / Time Performing Clinician Source Performed POC GLUCOSE 2022-09-11 17:16:00 Allyson Pfeiffer spital US ABDOMINAL PARACENTESIS 2022-09-11 16:10:00 Allyson Pfeiffer [facility] IMAGING POC GLUCOSE 2022-09-11 13:11:00 Allyson Pfeiffer spital BASIC METABOLIC PANEL 2022-09-11 09:22:00 Allyson Pfeiffer [facility] AMMONIA LEVEL 2022-09-11 09:22:00 Allyson Pfeiffer Ho spital MAGNESIUM LEVEL 2022-09-11 09:22:00 Allyson Pfeiffer spital PHOSPHORUS LEVEL 2022-09-11 09:22:00 Allyson Pfeiffer H ospital CBC HEMOGRAM 2022-09-11 09:22:00 Allyson Pfeiffer spital HEPATIC FUNCTION PANEL 2022-09-11 09:22:00 Allyson Pfeiffer [facility] FIBRINOGEN 2022-09-11 09:22:00 Allyson Pfeiffer spital ESTIMATED GFR 2022-09-11 09:22:00 Allyson Pfeiffer spital PROTHROMBIN TIME WITH INR 2022-09-11 09:22:00 Allyson Pfeiffer [facility] POC GLUCOSE 2022-09-11 02:33:00 Allyson Pfeiffer spital POC GLUCOSE 2022-09-10 22:57:00 Allyson Pfeiffer Ho spital POC GLUCOSE 2022-09-10 17:57:00 Allyson Pfeiffer Ho spital POC GLUCOSE 2022-09-10 13:22:00 Allyson Pfeiffer Ho spital BASIC METABOLIC PANEL 2022-09-10 09:08:00 Allyson Pfeiffer [facility] AMMONIA LEVEL 2022-09-10 09:08:00 Allyson Pfeiffer Ho spital MAGNESIUM LEVEL 2022-09-10 09:08:00 Allyson Pfeiffer Ho spital PHOSPHORUS LEVEL 2022-09-10 09:08:00 Allyson Pfeiffer H ospital CBC HEMOGRAM 2022-09-10 09:08:00 Allyson Pfeiffer Ho spital HEPATIC FUNCTION PANEL 2022-09-10 09:08:00 Allyson Pfeiffer [facility] ESTIMATED GFR 2022-09-10 09:08:00 Allyson Pfeiffer spital PROTHROMBIN TIME WITH INR 2022-09-10 09:08:00 Allyson Pfeiffer [facility] POC GLUCOSE 2022-09-10 02:21:00 Allyson Pfeiffer Ho spital POC GLUCOSE 2022-09-09 22:55:00 Allyson Pfeiffer spital US DUPLEX VENOUS LOWER 2022-09-09 21:20:00 Allyson Pfeiffer [facility] EXTREMITY LEFT POC GLUCOSE 2022-09-09 17:48:00 Allyson Pfeiffer Ho spital POC GLUCOSE 2022-09-09 13:11:00 Allyson Pfeiffer spital HC COMPLETE BLD COUNT W/AUTO 2022-09-09 10:12:00 Charo Shun [facility] DIFF [facility] BASIC METABOLIC PANEL 2022-09-09 10:12:00 [facility] 2022-09-09 10:12:00 [facility] MAGNESIUM L[facility] 2022-09-09 10:12:00 Sharri Hernandez spital Maldonado PHOSPHORUS LEVEL 2022-09-09 10:12:00 Sharri Hernandez ospital [facility] PROTHROMBIN TIME WITH INR 2022-09-09 10:12:00 [facility] ESTIM[facility] GFR 2022-09-09 10:12:00 Sharri Hernandez POC GLUCOSE 2022-09-09 02:22:00 Sharri Hernandez POC GLUCOSE 2022-09-08 22:08:00 Sharri Hernandez POC GLUCOSE 2022-09-08 18:02:00 Sharri Hernandez IR TIPS 2022-09-08 17:51:29 [facility] IR PARACENTESIS 2022-09-08 17:50:00 [facility] MI AN ELECTIVE ENDOTRACHEAL 2022-09-08 16:10:00 Dorothy Galdamez [facility] AIRWAY Rach POC GLUCOSE 2022-09-08 15:14:00 Sharri Hernandez URINE CULTURE 2022-09-08 14:37:00 Sharri Hernandez POC GLUCOSE 2022-09-08 12:55:00 Sharri Hernandez HC COMPLETE BLD COUNT W/AUTO 2022-09-08 09:50:00 [facility] DIFF Maldonado BASIC METABOLIC PANEL 2022-09-08 09:50:00 Charo Shun [facility] Maldonado HEPATIC FUNCTION PANEL 2022-09-08 09:50:00 [facility] Mal[facility]ado MAGNESIUM LEVEL 2022-09-08 09:50:00 Sharri Hernandez PHOSPHORUS LEVEL 2022-09-08 09:50:00 Sharri Hernandez ospiolivia Rodriguez PROTHROMBIN TIME WITH INR 2022-09-08 09:50:00 [facility] Maldonado ESTIMATED GFR 2022-09-08 09:50:00 Sharri Hernandez BLOOD CULTURE, AEROBIC & 2022-09-08 03:32:00 Charo Hoffmann [facility] ANAEROBIC Maldonado ZZCOVID-19 ANTI-SPIKE IGG 2022-09-08 03:32:00 [facility] ANTIBODY TITER [facility] ZZCOVID-19 SEROLOGY PATIENT 2022-09-08 03:32:00 [facility] SURVEILLANCE [facility] BLOOD CULTURE, AEROBIC & 2022-09-08 03:31:00 [facility] ANAEROBIC [facility] URINE CULTURE 2022-09-08 03:00:00 [facility] madhuri Maldonado URINALYSIS SCREEN AND 2022-09-08 03:00:00 [facility] MICROSCOPY, WITH REFLEX TO [facility] CULTURE POC GLUCOSE 2022-09-08 02:18:00 [facility] Maldonado POC GLUCOSE 2022-09-07 23:25:00 [facility] HC COMPLETE BLD COUNT W/AUTO 2022-09-07 22:45:00 [facility] DIFF PROTHROMBIN TIME WITH INR 2022-09-07 22:45:00 [facility] PARTIAL THROMBOPLASTIN TIME 2022-09-07 22:45:00 [facility] (PTT) BASIC METABOLIC PANEL 2022-09-07 22:45:00 [facility] HEPATIC FUNCTION PANEL 2022-09-07 22:45:00 [facility] TYPE AND SCREEN 2022-09-07 22:45:00 [facility] ESTIMATED GFR 2022-09-07 22:45:00 [facility] PREPARE RBC 2022-09-07 22:45:00 [facility] XR CHEST 1 VW PORTABLE 2022-09-07 22:25:28 [facility] Maldonado COVID-19 QUALITATIVE RT-PCR 2022-09-07 21:38:00 [facility] US ABDOMINAL PARACENTESIS 2022-09-06 17:25:58 [facility] IMAGING ANAEROBIC CULTURE 2022-09-06 16:30:00 [facility] AEROBIC CULTURE 2022-09-06 16:30:00 [facility] GRAM STAIN 2022-09-06 16:30:00 [facility] CELL COUNT AND DIFFERENTIAL, 2022-09-06 16:30:00 [facility] BODY FLUID PROTEIN, MISC FLUID 2022-09-06 16:30:00 [facility] CBC WITH PLATELET AND 2022-08-29 15:14:00 [facility] DIFFERENTIAL BASIC METABOLIC PANEL 2022-08-29 15:14:00 [facility] HEPATIC FUNCTION PANEL 2022-08-29 15:14:00 [facility], [facility] PROTHROMBIN TIME WITH INR 2022-08-29 15:14:00 [facility], [facility] PROTEIN, MISC FLUID 2022-08-17 20:42:00 [facility] US ABDOMINAL PARACENTESIS 2022-08-17 16:45:00 [facility] IMAGING ANAEROBIC CULTURE 2022-08-17 16:25:00 [facility] AEROBIC CULTURE 2022-08-17 16:25:00 [facility] GRAM STAIN 2022-08-17 16:25:00 [facility] CELL COUNT AND DIFFERENTIAL, 2022-08-17 16:25:00 [facility] BODY FLUID PROTHROMBIN TIME WITH INR 2022-08-17 16:06:00 [facility] FIBRINOGEN 2022-08-17 16:06:00 [facility] spital POC GLUCOSE 2022-08-17 14:36:00 Gal[place], [facility] BASIC METABOLIC PANEL 2022-08-16 14:03:00 [facility] HEPATIC FUNCTION PANEL 2022-08-16 14:03:00 [facility] PARTIAL THROMBOPLASTIN TIME 2022-08-16 14:03:00 [facility], [facility] (PTT) ALPHA FETOPROTEIN 2022-08-16 14:03:00 [facility] ZARINA-CORONADO VIRUS ANTIBODY 2022-08-16 14:03:00 [place], [facility] TEST HC COMPLETE BLD COUNT W/AUTO 2022-08-16 14:03:00 [facility] DIFF ESTIMATED GFR 2022-08-16 14:03:00 [facility] MRI ABDOMEN W WO CONTRAST 2022-08-16 14:00:00 [facility] TTE COMPLETE, WO CONTRAST, W 2022-08-16 13:00:00 [facility] AGITATED SALINE ([id number]) US ABDOMINAL PARACENTESIS 2022-07-26 17:35:22 [facility] IMAGING AEROBIC CULTURE 2022-07-26 17:34:00 [facility] GRAM STAIN 2022-07-26 17:34:00 [facility] ANAEROBIC CULTURE 2022-07-26 17:00:00 [facility] CELL COUNT AND DIFFERENTIAL, 2022-07-26 17:00:00 [facility] BODY FLUID PROTEIN, MISC FLUID 2022-07-26 17:00:00 [facility] HC COMPLETE BLD COUNT W/AUTO 2022-07-26 16:23:00 [facility] DIFF PROTHROMBIN TIME WITH INR 2022-07-26 16:23:00 [facility] POC GLUCOSE 2022-07-26 14:49:00 Saray [facility] US ABDOMINAL PARACENTESIS 2022-06-29 16:45:00 Saray [facility] IMAGING AEROBIC CULTURE 2022-06-29 16:20:00 [facility], [facility] ANAEROBIC CULTURE 2022-06-29 16:20:00 [facility], [facility] GRAM STAIN 2022-06-29 16:20:00 [facility], [facility] CELL COUNT AND DIFFERENTIAL, 2022-06-29 16:20:00 [facility] BODY FLUID PROTEIN, MISC FLUID 2022-06-29 16:20:00 [facility], [facility] HC COMPLETE BLD COUNT W/AUTO 2022-06-29 14:09:00 [facility]OT[facility] WITH INR 2022-06-29 14:09:00 [facility] FIB[facility] 2022-06-29 14:09:00 Teto Dickeyist Ho spital IR 3D RECON SLICES SNAPSHOTS 2022-06-21 21:10:[address] [facility] Y-[facility] PHASE 2 SPECT 2022-06-21 20:14:46 Saray [facility] Y90 THERASPHERES THERAPY 2022-06-21 18:30:00 Saray [facility] IR RADIOEMBOLIZATION 2022-06-21 17:42:00 Saray [facility] POC GLUCOSE 2022-06-21 16:38:00 Saray [facility] POC GLUCOSE 2022-06-21 13:57:00 Saray [facility] Y-90 PHASE 1 SPECT 2022-06-07 19:03:54 Saray [facility] IR RADIOEMBOLIZATION 2022-06-07 18:02:00 Saray [facility] IR 3D RECON SLICES SNAPSHOTS 2022-06-07 18:02:[address] [facility] COMPREHENSIVE METABOLIC 2022-06-07 13:40:00 [facility] PANEL ESTIMATED GFR 2022-06-07 13:40:00 [facility] BILIRUBIN DIRECT 2022-06-07 13:40:00 [facility] POC GLUCOSE 2022-06-07 13:16:00 Saray [facility] US ABDOMINAL PARACENTESIS 2022-05-31 16:03:00 Saray [facility] IMAGING AEROBIC CULTURE 2022-05-31 15:45:00 Saray [facility] ANAEROBIC CULTURE 2022-05-31 15:45:00 Saray [facility] GRAM STAIN 2022-05-31 15:45:00 Saray [facility] CELL COUNT AND DIFFERENTIAL, 2022-05-31 15:45:00 [facility] BODY FLUID PROTEIN, MISC FLUID 2022-05-31 15:45:00 [facility], [facility] HC COMPLETE BLD COUNT W/AUTO 2022-05-31 13:41:00 [facility] DIFF PROTHROMBIN TIME WITH INR 2022-05-31 13:41:[address] [facility] FIBRINOGEN 2022-05-31 13:41:00 Teto Dickey spital NM BONE SCAN WHOLE BODY 2022-05-10 16:16:00 [facility], [facility] CT CHEST WO CONTRAST 2022-05-10 14:00:37 [facility], [facility] US ABDOMINAL PARACENTESIS 2022-05-08 20:22:55 [facility], [facility] IMAGING ANAEROBIC CULTURE 2022-05-08 19:45:00 [facility], [facility] AEROBIC CULTURE 2022-05-08 19:45:00 [facility], [facility] GRAM STAIN 2022-05-08 19:45:00 [facility], [facility] CELL COUNT AND DIFFERENTIAL, 2022-05-08 19:45:00 [facility] BODY FLUID PROTEIN, MISC FLUID 2022-05-08 19:45:00 [facility], [facility] [place] FIBRINOGEN 2022-05-08 18:59:00 Teto Dickey spital ABO/RH 2022-05-03 15:08:00 [facility] CBC WITH PLATELET AND 2022-05-03 15:08:00 [facility] DIFFERENTIAL COMPREHENSIVE METABOLIC 2022-05-03 15:08:00 [facility] PANEL PROTHROMBIN TIME WITH INR 2022-05-03 15:08:00 [facility] ALPHA FETOPROTEIN 2022-05-03 15:08:00 [facility] MRI ABDOMEN W WO CONTRAST 2022-04-12 19:35:00 [facility] POC GLUCOSE 2022-04-07 19:20:00 Sarah Cao Ho spital CV RIGHT AND LEFT HEART CATH 2022-04-07 18:58:53 [facility] SELECTIVE CORONARY LV GRAM ECG PRE/POST OP 2022-04-07 16:18:19 Sarah Cao Ho spital POC GLUCOSE 2022-04-07 16:17:00 Sarah Cao spital PROTHROMBIN TIME WITH INR 2022-04-03 14:58:00 [facility] COMPREHENSIVE METABOLIC 2022-04-03 14:58:00 [facility] PANEL HC COMPLETE BLD COUNT W/AUTO 2022-04-03 14:58:00 [facility] DIFF ESTIMATED GFR 2022-04-03 14:58:00 [facility] spital COVID-19 QUALITATIVE RT-PCR 2022-04-03 13:57:00 [facility] US ABDOMINAL PARACENTESIS 2022-03-16 15:41:42 Tristin So [facility] IMAGING FIBRINOGEN 2022-03-16 13:32:00 Teto Dickey spital ARTERIAL BLOOD GAS, 2022-03-13 19:46:00 [facility] PULMONARY FUNC DEPT SPIROMETRY, DIFFUSION, LUNG 2022-03-13 19:35:[address] [facility] VOLUMES US CAROTID DUPLEX BILATERAL 2022-03-10 20:13:[address] [facility] TTE COMPLETE, WO CONTRAST, W 2022-03-10 19:00:[address] [facility] DOPPLER ([id number]) XR PANOREX 2022-03-10 16:11:22 [facility] XR CHEST 2 VW 2022-03-10 15:56:11 [facility] BONE DENSITY PERIPHERAL 2022-03-10 15:41:[address] [facility] BONE DENSITY 2022-03-10 15:34:00 [facility] NICOTINE AND COTININE, SERUM 2022-03-10 14:28:[address] [facility] BASIC METABOLIC PANEL 2022-03-10 14:28:00 [facility] HEPATIC FUNCTION PANEL 2022-03-10 14:28:[address] [facility] LIPID PANEL 2022-03-10 14:28:00 [facility] LIPOPROTEIN (A) 2022-03-10 14:28:00 [facility] GGT 2022-03-10 14:28:00 [facility] TOTAL IRON BINDING CAPACITY 2022-03-10 14:28:[address] [facility] FERRITIN LEVEL 2022-03-10 14:28:00 [facility] MAGNESIUM LEVEL 2022-03-10 14:28:00 [facility] PHOSPHORUS LEVEL 2022-03-10 14:28:00 [facility] VITAMIN D 25 HYDROXY LEVEL 2022-03-10 14:28:00 [facility] THYROID STIMULATING HORMONE 2022-03-10 14:28:[address] [facility] ANTINUCLEAR ANTIBODIES (VANESSA) 2022-03-10 14:28:[address] [facility] WITH REFLEX TO TITER AND PATTERN, IMMUNOFLUORESCENCE CYTOMEGALOVIRUS AB, IGG 2022-03-10 14:28:[address] [facility] CYTOMEGALOVIRUS AB, IGM 2022-03-10 14:28:[address] [facility] HEMOGLOBIN A1C 2022-03-10 14:28:00 [facility] HEPATITIS A ANTIBODY TOTAL 2022-03-10 14:28:00 [facility] HEPATITIS A ANTIBODY IGM 2022-03-10 14:28:00 [facility] HEPATITIS B SURFACE ANTIGEN 2022-03-10 14:28:[address] [facility] HEPATITIS B SURFACE ANTIBODY 2022-03-10 14:28:[address] [facility] HEPATITIS B CORE ANTIBODY 2022-03-10 14:28:00 [facility] TOTAL HEPATITIS C ANTIBODY 2022-03-10 14:28:00 [facility] HIV 1/2 ANTIGEN/ANTIBODY, 2022-03-10 14:28:00 [facility] FOURTH GENERATION, WITH REFLEXES SYPHILIS TREPONEMA SCREEN 2022-03-10 14:28:00 [facility] WITH RPR CONFIRMATION (REVERSE ALGORITHM) ANTI MITOCHONDRIA SCREEN 2022-03-10 14:28:00 [facility] HC COMPLETE BLD COUNT W/AUTO 2022-03-10 14:28:[address] [facility] DIFF PROTHROMBIN TIME WITH INR 2022-03-10 14:28:00 [facility] PARTIAL THROMBOPLASTIN TIME 2022-03-10 14:28:[address] [facility] (PTT) ABORH - TRANSPLANT 2022-03-10 14:28:00 [facility] ALCOHOL LEVEL, BLOOD 2022-03-10 14:28:00 [facility] ALPHA FETOPROTEIN 2022-03-10 14:28:00 [facility] CARCINOEMBRYONIC ANTIGEN 2022-03-10 14:28:00 [facility] (CEA) CANCER ANTIGEN 19-9 2022-03-10 14:28:00 [facility] ALPHA-1 ANTITRYPSIN LEVEL 2022-03-10 14:28:00 [facility] CERULOPLASMIN LEVEL 2022-03-10 14:28:00 [facility] FIBRINOGEN 2022-03-10 14:28:00 [facility] TB T-SPOT 2022-03-10 14:28:00 [facility] C-REACTIVE PROTEIN 2022-03-10 14:28:00 [facility] 2022-03-10 14:28:00 [facility] ZINC LEVEL, SERUM 2022-03-10 14:28:00 Dulce Jacobo [facility] PROSTATE SPECIFIC ANTIGEN 2022-03-10 14:28:00 Dulce Jacobo [facility] DRUG MOHR 9, SER/HEATHER, SCRN 2022-03-10 14:28:00 Dulce Jacobo [facility] W/RFLX TO CONF ESTIMATED GFR 2022-03-10 14:28:00 Donnell, [facility] HLA TYPING 2022-03-10 14:28:00 [facility] SINGLE ANTIGEN BEADS 2022-03-10 14:28:00 Dulce Jacobo [facility] C1Q CLASS 1 & 2 ANTIBODY 2022-03-10 14:28:00 Dulce Jacobo [facility] PHOSPHATIDYLETHANOL, BLOOD 2022-03-10 14:28:00 DonnellDulce [facility] VANESSA TITER 2022-03-10 14:28:00 Donnell, [facility] COVID-19 QUALITATIVE RT-PCR 2022-03-10 13:47:00 Donnell, [facility] US ABDOMINAL PARACENTESIS 2022-01-25 16:52:28 Saray [facility] IMAGING GRAM STAIN 2022-01-25 16:09:00 [facility] CELL COUNT AND DIFFERENTIAL, 2022-01-25 16:09:00 [facility] BODY FLUID PROTEIN, MISC FLUID 2022-01-25 16:09:00 Saray [facility] AEROBIC CULTURE 2022-01-25 15:09:00 Saray [facility] ANAEROBIC CULTURE 2022-01-25 15:09:00 Tristin So [facility] HC COMPLETE BLD COUNT W/AUTO 2022-01-25 14:39:00 [facility] DIFF PROTHROMBIN TIME WITH INR 2022-01-25 14:39:00 [facility] FIBRINOGEN 2022-01-25 14:39:00 [facility] MRI ABDOMEN W WO CONTRAST 2022-01-13 14:32:00 [facility] US ABDOMINAL PARACENTESIS 2021-12-30 17:56:14 [facility] IMAGING ANAEROBIC CULTURE 2021-12-30 16:00:00 [facility] AEROBIC CULTURE 2021-12-30 16:00:00 [facility] GRAM STAIN 2021-12-30 16:00:00 [facility] CELL COUNT AND DIFFERENTIAL, 2021-12-30 16:00:00 [facility] BODY FLUID PROTEIN, MISC FLUID 2021-12-30 16:00:00 [facility] HC COMPLETE BLD COUNT W/AUTO 2021-12-30 15:10:00 [facility] DIFF PROTHROMBIN TIME WITH INR 2021-12-30 15:10:00 [facility] PARTIAL THROMBOPLASTIN TIME 2021-12-30 15:10:00 [facility] (PTT) Plan of Care Planned Activity Planned Date Details Comments Source Future Scheduled 2022-10-09 Pneumococcal Vaccine: [facility] Test 14:43:05 Pediatrics (0 to 5 Years) and At-Risk Patients (6 to 64 Years) (1 - PCV) [code = Pneumococcal Vaccine: Pediatrics (0 to 5 Years) and At-Risk Patients (6 to 64 Years) (1 - PCV)] Future Scheduled 2022-10-09 SHINGLES VACCINES (1 [facility] Test 14:43:05 of 2) [code = SHINGLES VACCINES (1 of 2)] Future Scheduled 2022-10-09 COLONOSCOPY SCREENING [facility] Test 14:43:05 [code = COLONOSCOPY SCREENING] Future Scheduled 2022-10-09 HEPATITIS B VACCINES [facility] Test 14:43:05 (1 of 3 - Risk 3-dose series) [code = HEPATITIS B VACCINES (1 of 3 - Risk 3-dose series)] Future Scheduled 2022-10-09 COVID-19 VACCINE (3 - [facility] Test 14:43:05 Booster for Pfizer series) [code = COVID-19 VACCINE (3 - Booster for Pfizer series)] Future Scheduled 2022-07-20 INFLUENZA VACCINE (#1) [facility] 00:00:00 [code = INFLUENZA Medical Ce nter VACCINE (#1)] Future Scheduled 2021-11-[address] [facility] Test 00:00:00 (12+) [code = Medical Center DEPRESSION SCREENING (12+)] Future Scheduled 2021-09-[address] [facility] Test 00:00:00 Counseling and Medical Cente r Screening (12+) [code = Tobacco Cessation Counseling and Screening (12+)] Future Scheduled 2008 SHINGLES VACCINES ([address] [facility] Test 00:00:00 of 2) [code = SHINGLES Medic al Center VACCINES (1 of 2)] Future Scheduled [address] [facility] 00:00:00 (procedure) [code = [facility] 80778786] Future Scheduled 1977 DTAP/TDAP/TD VACCINES [facility] 00:00:00 (1 - Tdap) [code = Medical C enter DTAP/TDAP/TD VACCINES (1 - Tdap)] Future Scheduled 1959-03-18 COVID-19 VACCINE (#1) [facility] 00:00:00 [code = COVID-[address] VACCINE (#1)] Future Scheduled [address] [facility] 00:00:00 (combo) [code = CT Medical C enter Colonography (combo)] Future Scheduled [address] [facility] 00:[facility]:00 malignant neoplasm of Medica l Center colon (procedure) [code = 298925648] Future Scheduled [address] [facility] Test 00:00:00 malignant neoplasm of Medica l Center colon (procedure) [code = 233871487] Future Scheduled [address] [facility] Test 00:00:00 malignant neoplasm of Medica l Center colon (procedure) [code = 308453580] Future Scheduled [address] [facility] Test 00:00:00 malignant neoplasm of Medica l Center colon (procedure) [code = 960609777] Future Scheduled 1958 Sigmoidoscopy [code = [facility] 00:[facility] Sigmoidoscopy] Medical Cente r Encounters Start End Encounter Admission Attending Care Care Encounter Source Date/Time Date/Time Type Type Clinicians Facility Department ID 2022-10-09 2022-10-09 Telephone Gaby Alvarez 1.2.840.0 [id number] Methodi 00:00:00 00:00:[address] 3.430.2.7 Hospit a .3.085170 l .8 2022-10-06 2022-10-06 Orders [facility], 1.2.840.1 [id number] Methodi 00:00:00 00:00:00 Only Tristin Li 86343.1.[address] 3.430.2.7 Hospit a .3.549773 l .8 2022-09-29 2022-09-29 [facility], 1.2.840.1 [id number] Methodi 08:34:44 23:59:00 Encounter Tristin [place] 09798.1.[address] 3.430.2.7 Hospit a .3.912841 l .8 2022-09-29 2022-09-29 Travel 1.2.840.1 1.2.678.796 0404 [id number] Methodi 00:00:00 00:00:[address] 3.430.2.7 0.2.7.3.698 Ho spita .3.730324 084.8 l .8 2022-09-29 2022-09-29 Orders [facility], 1.2.840.1 [id number] Methodi 00:00:00 00:00:00 Only Tristin Li 17037.1.[address] 3.430.2.7 Hospit a .3.635156 l .8 2022-09-29 2022-09-29 Outpatient GALATI, [facility] [id number] 680 [place] 00:00:00 00:00:00 TRISTIN [address] 2022-09-27 2022-09-27 Orders Radha, 1.2.840.1 [id number] [id number] Methodi 00:00:00 00:00:00 Only Gayle 75946.1.[address] 3.430.2.7 Hospit a .3.903732 l .8 2022-09-22 2022-09-22 Orders Saray, 1.2.840.1 [id number] 8689 Methodi 00:00:00 00:00:00 Only Tristin Li 71965.1.[address] 3.430.2.7 Hospit a .3.030170 l .8 2022-09-16 2022-09-16 Transcribe Galati, 1.2.840.1 [id number] Methodi 00:00:00 00:00:00 Orders Tristin [place] [address]221.1.[address] 3.430.2.7 Hospit a .3.842233 l .8 2022-09-12 2022-09-12 Transcribe Galselwyn, 1.2.840.1 [id number] [id number] Methodi 00:00:00 00:00:00 [place] [address]114.1.[address] 3.430.2.7 Hospit a .3.287287 l .8 2022-09-07 2022-09-11 [facility] Eren Baltazar 1.2.840.1 [id number] Methodi 16:27:00 16:02:00 Encounter Maldonado Hernandez 02550.1.[address] Allyson 3.430.2.7 Hos larry .3.766292 l .8 2022-09-11 2022-09-11 Documentat Radha, 1.2.840.1 [id number] 2 [id number] Methodi 00:00:00 00:00:00 ion Gayle 83481.1.[address] 3.430.2.7 Hospit a .3.883533 l .8 2022-09-11 2022-09-11 Documentat Radha, 1.2.840.1 [id number] 2 [id number] Methodi 00:00:00 00:00:00 ion Gayle 08656.1.[address] 3.430.2.7 Hospit a .3.966123 l .8 2022-09-07 2022-09-11 Inpatient ALLYSON PFEIFFER [facility] [id number] [place] 00:00:00 00:00:[address] 2022-09-08 2022-09-08 Anesthesia Rudolph, 1.2.840.1 [id number] 2 [id number] Methodi 11:08:00 12:57:00 Event Dorothy Loyd 63238.1.[address] 3.430.2.7 Hospit a .3.737106 l .8 2022-09-08 2022-09-08 [facility], 1.2.840.1 [id number] 6905 Methodi 00:00:00 00:00:00 Only Tristin Li 66787.1.[address] 3.430.2.7 Hospit a .3.659822 l .8 2022-09-06 2022-09-06 Hospital [facility], 1.2.840.1 [id number] 50031 Methodi 10:31:54 23:59:00 Encounter Tristin Li 30544.1.[address] 3.430.2.7 Hospit a .3.081549 l .8 2022-09-06 2022-09-06 Telephone Radha, 1.2.840.1 [id number] 21 [id number] Methodi 00:00:00 00:00:[address] 3.430.2.7 Hospit a .3.465042 l .8 2022-09-06 2022-09-06 Travel 1.2.840.1 1.2.418.937 0348 [id number] Methodi 00:00:00 00:00:[address] 3.430.2.7 0.2.7.3.698 Ho spita .3.890012 084.8 l .8 2022-09-06 2022-09-06 Outpatient GALATI, [facility] [id number] 555 [place] 00:00:00 00:00:00 TRISTIN [address] 2022-09-01 2022-09-01 Orders Galati, 1.2.840.1 [id number] Methodi 00:00:00 00:00:00 Only Tristin S. 94710.1.[address] 3.430.2.7 Hospit a .3.866514 l .8 2022-08-30 2022-08-30 Documentat Radha, 1.2.840.1 [id number] 2 [id number] Methodi 00:00:00 00:00:00 ion Gayle 44547.1.[address] 3.430.2.7 Hospit a .3.932956 l .8 2022-08-25 2022-08-25 Orders Galati, 1.2.840.1 [id number] Methodi 00:00:00 00:00:00 Only Tristin S. 99836.1.[address] 3.430.2.7 Hospit a .3.923800 l .8 2022-08-18 2022-08-18 Orders Galati, 1.2.840.1 [id number] Methodi 00:00:00 00:00:00 Only Tristin S. 65464.1.[address] 3.430.2.7 Hospit a .3.815464 l .8 2022-08-17 2022-08-17 Hospital Galati, 1.2.840.1 [id number] Methodi 09:23:52 23:59:00 Encounter Tristin S. 72009.1.[address] 3.430.2.7 Hospit a .3.848864 l .8 2022-08-17 2022-08-17 Infusion Galati, 1.2.840.1 [id number] Methodi 12:00:00 14:00:[address] 3.430.2.7 Hospit a .3.187898 l .8 2022-08-17 2022-08-17 Telephone Radha, 1.2.840.1 [id number] 21 [id number] Methodi 00:00:00 00:00:[address] 3.430.2.7 Hospit a .3.366901 l .8 2022-08-17 2022-08-17 Travel 1.2.840.1 1.2.016.545 3746 097424 Methodi 00:00:00 00:00:[address] 3.430.2.7 0.2.7.3.698 Ho spita .3.139652 084.8 l .8 2022-08-17 2022-08-17 Orders Viki, 1.2.840.1 [id number] Methodi 00:00:00 00:00:00 Only Santo 53839.1.[address] Nadeem 3.430.2.7 Hospit a .3.750469 l .8 2022-08-17 2022-08-17 Outpatient [facility], [facility] [id number] [address] [place] [address] 00:00:00 00:00:00 TRISTIN [address] 2022-08-16 2022-08-16 [facility], 1.2.840.1 [id number] Methodi 07:34:05 23:59:00 Encounter Tristin Sparks.1.[address] 3.430.2.7 Hospit a .3.461198 l .8 2022-08-16 2022-08-16 [facility], 1.2.840.1 [id number] 6578 Methodi 10:00:00 10:15:00 Visit Tristin Sparks.1.[address] 3.430.2.7 Hospit a .3.447974 l .8 2022-08-16 2022-08-16 [facility], 1.2.840.1 [id number] 86743 Methodi 06:46:37 07:33:00 Encounter Tristin Sparks.1.[address] 3.430.2.7 Hospit a .3.121234 l .8 2022-08-16 2022-08-16 Documentat Viki, 1.2.840.1 [id number] 21 [id number] Methodi 00:00:00 00:00:00 ion Santo 49808.1.[address] Nadeem 3.430.2.7 Hospit a .3.889759 l .8 2022-08-16 2022-08-16 Travel 1.2.840.1 1.2.432.930 2822 [id number] Methodi 00:00:00 00:00:[address] 3.430.2.7 0.2.7.3.698 Ho spita .3.737035 084.8 l .8 2022-08-16 2022-08-16 Outpatient GALATI, [facility] [id number] [address] [place] [address] 00:00:00 00:00:00 TRISTIN [address] 2022-08-16 2022-08-16 Outpatient GALATI, [facility] [id number] 248 [place] 00:00:00 00:00:00 RTISTIN [address] 2022-08-16 2022-08-16 Outpatient GALATI, [facility] [id number] [address] [place] [address] 00:00:00 00:00:00 TRISTIN [address] 2022-08-16 2022-08-16 Outpatient GALATI, [facility] [id number] [address] [place] [address] 00:00:00 00:00:00 TRISTIN [address] 2022-08-15 2022-08-15 Orders Radha, 1.2.840.1 [id number] Methodi 00:00:00 00:00:00 Only Gayle 42467.1.[address] 3.430.2.7 Hospit a .3.398023 l .8 2022-08-11 2022-08-11 Shan So, 1.2.840.1 [id number] 0802 Methodi 00:00:00 00:00:00 Only Tristin Li 80386.1.[address] 3.430.2.7 Hospit a .3.820022 l .8 2022-08-09 2022-08-09 Transcribe Galati, 1.2.840.1 [id number] 092 [id number] Methodi 00:00:00 00:00:00 Orders Tristin S. 53452.1.[address] 3.430.2.7 Hospit a .3.946677 l .8 2022-08-01 2022-08-01 Travel 1.2.840.1 1.2.759.091 4107 [id number] Methodi 00:00:00 00:00:[address] 3.430.2.7 0.2.7.3.698 Ho spita .3.410826 084.8 l .8 2022-07-28 2022-07-28 Orders Galati, 1.2.840.1 [id number] 6165 Methodi 00:00:00 00:00:00 Only Tristin S. 25933.1.[address] 3.430.2.7 Hospit a .3.715439 l .8 2022-07-26 2022-07-26 Hospital [facility], 1.2.840.1 [id number] 67118 Methodi 11:00:00 23:59:00 Encounter Tristin S. 36891.1.[address] 3.430.2.7 Hospit a .3.269316 l .8 2022-07-26 2022-07-26 Infusion Galati, 1.2.840.1 [id number] 98203 Methodi 12:00:00 14:00:[address] 3.430.2.7 Hospit a .3.156231 l .8 2022-07-26 2022-07-26 Travel 1.2.840.1 1.2.619.360 7192 372789 Methodi 00:00:00 00:00:[address] 3.430.2.7 0.2.7.3.698 Ho spita .3.978830 084.8 l .8 2022-07-26 2022-07-26 Outpatient [facility] [id number] 873 [place] 00:00:00 00:00:00 TRISTIN [address] 2022-07-26 2022-07-26 Outpatient GALATI, [facility] [id number] 847 [place] 00:00:00 00:00:00 TRISTIN [address] 2022-07-21 2022-07-21 Orders Galati, 1.2.840.1 [id number] Methodi 00:00:00 00:00:00 Only Tristin Li 77479.1.[address] 3.430.2.7 Hospit a .3.831622 l .8 2022-07-14 2022-07-14 Orders Galati, 1.2.840.1 [id number] 4702 Methodi 00:00:00 00:00:00 Only Tristin Li 54378.1.[address] 3.430.2.7 Hospit a .3.370218 l .8 2022-07-11 2022-07-11 Orders Delalexo, 1.2.840.1 [id number] 64890 66701 Methodi 00:00:00 00:00:00 Only Santo 33223.1.[address] Nadeem 3.430.2.7 Hospit a .3.176797 l .8 2022-07-10 2022-07-10 Transcribe Galselwyn, 1.2.840.1 [id number] 690 [id number] Methodi 00:00:00 00:00:00 [place]in [place] [address]46.1.[address] 3.430.2.7 Hospit a .3.359657 l .8 2022-03-13 2022-07-07 Office DonnellDulce aguilar 1.2.840.1 [id number] Methodi 09:30:00 10:49:32 Visit Galina Neumann 28185.1.[address] 3.430.2.7 Hospit a .3.781542 l .8 2022-06-29 2022-06-29 Hospital Galati, 1.2.840.1 [id number] 91336 Methodi 10:23:40 23:59:00 Encounter Tristin Li 10501.1.[address] 3.430.2.7 Hospit a .3.953020 l .8 2022-06-29 2022-06-29 [facility], 1.2.840.1 [id number] 47990 Methodi 12:00:00 14:00:00 Tristin Li [address]241.1.[address] 3.430.2.7 Hospit a .3.536917 l .8 2022-06-29 2022-06-29 Travel 1.2.840.1 1.2.791.604 3608 384455 Methodi 00:00:00 00:00:[address] 3.430.2.7 0.2.7.3.698 Ho spita .3.399371 084.8 l .8 2022-06-29 2022-06-29 [facility], [facility] [id number] [address] [place] [address] 00:00:00 00:00:00 TRISTIN [address] 2022-06-23 2022-06-23 [facility], 1.2.840.1 [id number] 9299 Methodi 00:00:00 00:00:00 Only Tristin Li 96942.1.[address] 3.430.2.7 Hospit a .3.978082 l .8 2022-06-21 2022-06-21 [facility], 1.2.840.1 [id number] 32010 Methodi 12:40:35 23:59:00 Encounter Tristin S. 57768.1.[address] 3.430.2.7 Hospit a .3.504674 l .8 2022-06-21 2022-06-21 [facility], 1.2.840.1 [id number] Methodi 12:30:00 12:39:00 Encounter Tristin S. 03802.1.[address] 3.430.2.7 Hospit a .3.982530 l .8 2022-06-21 2022-06-21 [facility], 1.2.840.1 [id number] 78152 Methodi 09:30:00 12:29:00 [place] 50728.1.[address] 3.430.2.7 Hospit a .3.980798 l .8 2022-06-21 2022-06-21 [facility], 1.2.840.1 [id number] 57405 08565 Methodi 08:31:05 09:29:00 [place] [address]69.1.[address] 3.430.2.7 Hospit a .3.605182 l .8 2022-06-21 2022-06-21 Travel 1.2.840.1 1.2.218.535 2304 708350 Methodi 00:00:00 00:00:[address] 3.430.2.7 0.2.7.3.698 Ho spita .3.444542 084.8 l .8 2022-06-21 2022-06-21 Outpatient GALATI, [facility] [id number] 058 [place] 00:00:00 00:00:00 TRISTIN [address] 2022-06-21 2022-06-21 Outpatient GALATI, [facility] [id number] 986 [place] 00:00:00 00:00:00 TRISTIN [address] 2022-06-21 2022-06-21 Outpatient GALATI, [facility] [id number] 540 [place] 00:00:00 00:00:00 TRISTIN [address] 2022-06-21 2022-06-21 Outpatient GALATI, [facility] [id number] 986 [place] 00:00:00 00:00:00 TRISTIN [address] 2022-06-16 2022-06-16 Psychiatric, 1.2.840.1 [id number] 2100 554508 Methodi 00:00:00 00:00:[address] 3.430.2.7 Hospit a .3.546311 l .8 2022-06-16 2022-06-16 [facility], 1.2.840.1 [id number] 3162 Methodi 00:00:00 00:00:00 Only Tristin MeeksJermaine 56789.1.[address] 3.430.2.7 Hospit a .3.046889 l .8 2022-06-09 2022-06-09 [facility], 1.2.840.1 [id number] 9480 Methodi 00:00:00 00:00:00 Only Tristin [place] 06745.1.[address] 3.430.2.7 Hospit a .3.316449 l .8 2022-06-07 2022-06-07 [facility], 1.2.840.1 [id number] 00640 44873 Methodi 09:30:00 23:59:00 [place] [address]006.1.[address] 3.430.2.7 Hospit a .3.579179 l .8 2022-06-07 2022-06-07 [facility], 1.2.840.1 [id number] 14671 91213 Methodi 07:10:24 09:29:00 [place] [address]57.1.[address] 3.430.2.7 Hospit a .3.531657 l .8 2022-06-07 2022-06-07 Travel 1.2.840.1 1.2.709.752 8325 759551 Methodi 00:00:00 00:00:[address] 3.430.2.7 0.2.7.3.698 spita .3.597933 084.8 l .8 2022-06-07 2022-06-07 Outpatient GALATI, [facility] [id number] 431 [place] 00:00:00 00:00:00 TRISTIN [address] 2022-06-07 2022-06-07 Outpatient GALATI, [facility] [id number] [address] [place] [address] 00:00:00 00:00:00 TRISTIN [address] 2022-06-02 2022-06-02 [facility], 1.2.840.1 [id number] 1807 Methodi 00:00:00 00:00:00 Only Tristin [place] 93068.1.[address] 3.430.2.7 Hospit a .3.923917 l .8 2022-05-31 2022-05-31 [facility], 1.2.840.1 [id number] 89391 71947 Methodi 10:22:23 23:59:00 Encounter Tristin Meeks. 98447.1.[address] 3.430.2.7 Hospit a .3.645080 l .8 2022-05-31 2022-05-31 Infusion [facility], 1.2.840.1 [id number] 44064 Methodi 11:30:00 13:30:00 [place] [address] 3.430.2.7 Hospit a .3.694137 l .8 2022-05-31 2022-05-31 Transcribe [facility], 1.2.840.1 [id number] 971 [id number] Methodi 00:00:00 00:00:00 Orders [place] Li 73040.1.[address] 3.430.2.7 Hospit a .3.641591 l .8 2022-05-31 2022-05-31 Travel 1.2.840.1 1.2.623.133 8051 630359 Methodi 00:00:00 00:00:[address] 3.430.2.7 0.2.7.3.698 Ho spita .3.243012 084.8 l .8 2022-05-31 2022-05-31 Outpatient GALATI, [facility] [id number] 332 [place] 00:00:00 00:00:00 TRISTIN [address] 2022-05-31 2022-05-31 Outpatient GALATI, [facility] [id number] 331 [place] 00:00:00 00:00:00 TRISTIN [address] 2022-05-26 2022-05-26 Telephone Delcano, 1.2.840.1 [id number] 111 [id number] Methodi 00:00:00 00:00:[address] Nadeem 3.430.2.7 Hospit a .3.963916 l .8 2022-05-26 2022-05-26 Orders Delcano, 1.2.840.1 [id number] 75660 40439 Methodi 00:00:00 00:00:00 Only Santo 11553.1.[address] Nadeem 3.430.2.7 Hospit a .3.145555 l .8 2022-05-26 2022-05-26 Orders Galati, 1.2.840.1 [id number] 363820 5022 Methodi 00:00:00 00:00:00 Only Tristin Li 67171.1.[address] 3.430.2.7 Hospit a .3.542507 l .8 2022-05-19 2022-05-19 Orders Galselwyn, 1.2.840.1 [id number] 123805 1919 Methodi 00:00:00 00:00:00 Only Tristin Li 48833.1.[address] 3.430.2.7 Hospit a .3.831439 l .8 2022-05-18 2022-05-18 Travel 1.2.840.1 1.2.727.267 6421 502905 Methodi 00:00:00 00:00:[address] 3.430.2.7 0.2.7.3.698 Ho spita .3.837959 084.8 l .8 2022-05-12 2022-05-12 Documentat Viki, 1.2.840.1 [id number] 21 [id number] Methodi 00:00:00 00:00:00 ion Santo 65917.1.[address] Nadeem 3.430.2.7 Hospit a .3.211503 l .8 2022-05-12 2022-05-12 Orders Galselwyn, 1.2.840.1 [id number] 705042 8871 Methodi 00:00:00 00:00:00 Only Tristin Meeks. 48895.1.[address] 3.430.2.7 Hospit a .3.335463 l .8 2022-05-11 2022-05-11 Transcribe Shelly, 1.2.840.1 [id number] 263 [id number] Methodi 00:00:00 00:00:00 Orders Sarabjit 69970.1.[address] Davies 3.430.2.7 Hospit a .3.636032 l .8 2022-05-10 2022-05-10 [facility], 1.2.840.1 [id number] 67169 19274 Methodi 10:28:43 23:59:00 Encounter Tristin Li 17957.1.[address] 3.430.2.7 Hospit a .3.623453 l .8 2022-05-10 2022-05-10 [facility], 1.2.840.1 [id number] 07882 Methodi 08:33:13 10:27:00 Encounter Tristin Li 57587.1.[address] 3.430.2.7 Hospit a .3.879993 l .8 2022-05-10 2022-05-10 [facility], 1.2.840.1 [id number] 14174 Methodi 08:15:00 08:32:00 Encounter Tristin iL 26105.1.[address] 3.430.2.7 Hospit a .3.182507 l .8 2022-05-10 2022-05-10 Travel 1.2.840.1 1.2.935.387 7518 648494 Methodi 00:00:00 00:00:[address] 3.430.2.7 0.2.7.3.698 Ho spita .3.511960 084.8 l .8 2022-05-10 2022-05-10 [facility] [id number] [address] [place] [address] 00:00:00 00:00:00 TRISTIN [address] 2022-05-10 2022-05-10 [id number] [address] [place] [address] 00:00:00 00:00:00 TRISTIN [address] 2022-05-10 2022-05-10 [facility] [id number] [address] [place] [address] 00:00:00 00:00:00 TRISTIN [address] 2022-05-09 2022-05-09 Key Bernal 1.2.840.1 [id number] Methodi 00:00:00 00:00:[address] 3.430.2.7 Hospit a .3.304736 l .8 2022-05-09 2022-05-09 Documentat Key Kelsey 1.2.840.1 [id number] Methodi 00:00:00 00:00:[address] mag Ayala 70342.1.[address] 3.430.2.7 Hospit a .3.375553 l .8 2022-05-08 2022-05-08 [facility], 1.2.840.1 [id number] 23365 78850 Methodi 14:18:44 23:59:00 Encounter Tristin Li 70175.1.[address] 3.430.2.7 Hospit a .3.855893 l .8 2022-05-08 2022-05-08 Infusion 1.2.840.1 670675372 98765 92346 Methodi 15:00:00 16:30:[address] 3.430.2.7 Hospit a .3.864524 l .8 2022-05-08 2022-05-08 Travel 1.2.840.1 1.2.438.270 9492 120635 Methodi 00:00:00 00:00:[address] 3.430.2.7 0.2.7.3.698 Ho spita .3.604527 084.8 l .8 2022-05-08 2022-05-08 [facility] [id number] [address] [place] [address] 00:00:00 00:00:00 TRISTIN [address] 2022-05-05 2022-05-05 [facility] 1.2.840.1 [id number] 403533 7663 Methodi 00:00:00 00:00:00 Only Tristin MeeksJermaine 76200.1.[address] 3.430.2.7 Hospit a .3.124506 l .8 2022-05-04 2022-05-04 Transcribe [facility], 1.2.840.1 [id number] 288 3983070 Methodi 00:00:00 00:00:00 Orders Tristin Li 48173.1.[address] 3.430.2.7 Hospit a .3.518827 l .8 2022-05-04 2022-05-04 Transcribe Saray 1.2.840.1 [id number] 742 1617918 Methodi 00:00:00 00:00:00 Orders Tristin Li 08861.1.[address] 3.430.2.7 Hospit a .3.535647 l .8 2022-05-02 2022-05-02 Telephone Key Kelsey 1.2.840.1 [id number] Methodi 00:00:00 00:00:[address] 3.430.2.7 Hospit a .3.209715 l .8 2022-05-02 2022-05-02 Orders Key Kelsey 1.2.840.1 [id number] 21 [id number] Methodi 00:00:00 00:00:00 Only Lucy 06376.1.[address] 3.430.2.7 Hospit a .3.613423 l .8 2022-05-02 2022-05-02 Orders Key Kelsey 1.2.840.1 315568093 21 [id number] Methodi 00:00:00 00:00:00 Only Lucy 52185.1.[address] 3.430.2.7 Hospit a .3.704409 l .8 2022-04-28 2022-04-28 Orders Saray, 1.2.840.1 [id number] 939064 2774 Methodi 00:00:00 00:00:00 Only Tristin Li 99368.1.[address] 3.430.2.7 Hospit a .3.063491 l .8 2022-04-21 2022-04-21 Orders Saray 1.2.840.1 997124831 482339 4328 Methodi 00:00:00 00:00:00 Only Tristin Li 88450.1.[address] 3.430.2.7 Hospit a .3.446631 l .8 2022-04-14 2022-04-14 Orders Saray 1.2.840.1 975006018 213699 2177 Methodi 00:00:00 00:00:00 Only Tristin Li 21210.1.[address] 3.430.2.7 Hospit a .3.986222 l .8 2022-04-12 2022-04-12 [facility] 1.2.840.1 [id number] 80852 83071 Methodi 13:34:30 23:59:00 Encounter Tristin [place] 49817.1.[address] 3.430.2.7 Hospit a .3.235266 l .8 2022-04-12 2022-04-12 Travel 1.2.840.1 1.2.437.831 7597 132415 Methodi 00:00:00 00:00:[address] 3.430.2.7 0.2.7.3.698 Ho spita .3.274095 084.8 l .8 2022-04-12 2022-04-12 [facility] [id number] 985 [place] 00:00:00 00:00:00 TRISTIN [address] 2022-04-07 2022-04-07 Hospital Sarah Cao 1.2.840.1 [id number] 36875 86923 Methodi 10:11:00 15:31:00 Encounter Rachana 51086.1.[address] 3.430.2.7 Hospit a .3.193479 l .8 2022-04-07 2022-04-07 Surgery Sarah Cao 1.2.840.1 [id number] 904731 5019 Methodi 13:00:00 14:20:[address] 3.430.2.7 Hospit a .3.960693 l .8 2022-04-07 2022-04-07 Travel 1.2.840.1 1.2.222.500 5131 113412 Methodi 00:00:00 00:00:[address] 3.430.2.7 0.2.7.3.698 Ho spita .3.224958 084.8 l .8 2022-04-07 2022-04-07 Orders Galati, 1.2.840.1 [id number] 325074 6848 Methodi 00:00:00 00:00:00 Only Tristin Li 01943.1.[address] 3.430.2.7 Hospit a .3.104377 l .8 2022-04-07 2022-04-07 Outpatient SARAH CAO [facility] 910 [id number] 169 [place] 00:00:00 00:00:[address] 2022-04-06 2022-04-06 Documentat Provider, 1.2.840.1 [id number] 2 [id number] Methodi 00:00:00 00:00:00 ion Unknown 70968.1.[address] 3.430.2.7 Hospit a .3.465807 l .8 2022-04-05 2022-04-05 Transcribe Saray, 1.2.840.1 951626013 618 1354895 Methodi 00:00:00 00:00:00 Orders Tristin Li 34401.1.[address] 3.430.2.7 Hospit a .3.923467 l .8 2022-04-03 2022-04-03 Lab Isabelle, 1.2.840.1 073190510 044941 8102 Methodi 09:50:00 09:55:00 [facility] 42013.1.[address] 3.430.2.7 Hospit a .3.550261 l .8 2022-04-03 2022-04-03 Travel 1.2.840.1 1.2.178.707 4610 947649 Methodi 00:00:00 00:00:[address] 3.430.2.7 0.2.7.3.698 Ho spita .3.213084 084.8 l .8 2022-04-03 2022-04-03 Outpatient ISABELLE [facility] [id number] 209 [place] 00:00:00 00:00:00 [facility] [address] 2022-03-31 2022-03-31 Orders Galati, 1.2.840.1 [id number] 093227 4606 Methodi 00:00:00 00:00:00 Only Tristin Li [address]203.1.[address] 3.430.2.7 Hospit a .3.718629 l .8 2022-03-28 2022-03-28 Telephone Haroldo, 1.2.840.1 [id number] 21 [id number] Methodi 00:00:00 00:00:[address] 3.430.2.7 Hospit a .3.758438 l .8 2022-03-24 2022-03-24 Orders Galati, 1.2.840.1 [id number] 890507 2253 Methodi 00:00:00 00:00:00 Only Tristin Li 21423.1.[address] 3.430.2.7 Hospit a .3.951850 l .8 2022-03-17 2022-03-17 Telephone Smith, 1.2.840.1 [id number] 2100 498099 Methodi 00:00:00 00:00:[address] 3.430.2.7 Hospit a .3.337123 l .8 2022-03-17 2022-03-17 Orders Isabelle, 1.2.840.1 146210218 675803 3346 Methodi 00:00:00 00:00:00 Only Galina 66880.1.[address] 3.430.2.7 Hospit a .3.291399 l .8 2022-03-17 2022-03-17 Orders Galati, 1.2.840.1 820397988 400507 7230 Methodi 00:00:00 00:00:00 Only Tristin Li 43241.1.[address] 3.430.2.7 Hospit a .3.486720 l .8 2022-03-16 2022-03-16 Hospital Saray, 1.2.840.1 [id number] 66424 43546 Methodi 09:19:34 23:59:00 Encounter [place]istin [place] [address]24.1.[address] 3.430.2.7 Hospit a .3.658421 l .8 2022-03-16 2022-03-16 Infusion Galati, 1.2.840.1 501231043 38092 03069 Methodi 11:00:00 13:00:00 [place] [address]271.1.[address] 3.430.2.7 Hospit a .3.984086 l .8 2022-03-16 2022-03-16 Telephone Key Kelsey 1.2.840.1 [id number] Methodi 00:00:00 00:00:[address] 3.430.2.7 Hospit a .3.354317 l .8 2022-03-16 2022-03-16 Travel 1.2.840.1 1.2.167.387 3163 942439 Methodi 00:00:00 00:00:[address] 3.430.2.7 0.2.7.3.698 Ho spita .3.998863 084.8 l .8 2022-03-16 2022-03-16 Outpatient GALATI, [facility] [id number] 679 [place] 00:00:00 00:00:00 TRISTIN [address] 2022-03-16 2022-03-16 Outpatient GALATI, [facility] [id number] 586 [place] 00:00:00 00:00:00 TRISTIN [address] 2022-03-15 2022-03-15 Documentat Marcellus 1.2.840.1 [id number] 731 0803135 Methodi 00:00:00 00:00:00 ion Dustin 63539.1.[address] Raj 3.430.2.7 Hospit a .3.850618 l .8 2022-03-13 2022-03-13 [facility] Donnell 1.2.840.1 [id number] 938 1804343 Methodi 13:00:00 23:59:00 Jerzy Benson 15691.1.[address] 3.430.2.7 Hospit a .3.345107 l .8 2022-03-13 2022-03-13 Office Dulce Jacobo 1.2.840.1 104 360138 8099250075 Methodi 09:30:00 10:00:00 Visit Luz Marina Carlson 06929.1.[address] 3.430.2.7 Hospit a .3.252602 l .8 2022-03-13 2022-03-13 [facility], 1.2.840.1 [id number] 21 [id number] Methodi 09:00:00 10:00:00 Rafik Marcelino 93736.1.1 252 s t 3.430.2.7 Hospit a .3.854496 l .8 2022-03-13 2022-03-13 Travel 1.2.840.1 1.2.699.665 0635 381231 Methodi 00:00:00 00:00:[address] 3.430.2.7 0.2.7.3.698 Ho spita .3.382232 084.8 l .8 2022-03-13 2022-03-13 Outpatient DONNELL, [facility] 56257 98671 [place] 00:00:00 00:00:00 RAFIK 252 Method i 2022-03-13 2022-03-13 Outpatient DONNELL, [facility] 28260 28335 [place] 00:00:00 00:00:00 RAFIK 250 Method i 2022-03-13 2022-03-13 [facility] 36772 91998 [place] 00:00:00 00:00:00 RAFIK 249 Method i 2022-03-13 2022-03-13 Outpatient DONNELL, [facility] 65413 97453 [place] 00:00:00 00:00:00 RAFIK 551 Method i 2022-03-10 2022-03-10 [facility], 1.2.840.1 [id number] 307 0640406 Methodi 14:00:00 23:59:00 Encounter Rafik Marcelino 53532.1.[address] 3.430.2.7 Hospit a .3.084918 l .8 2022-03-10 2022-03-10 [facility], 1.2.840.1 [id number] 995 3335185 Methodi 13:00:00 13:59:00 Encounter Dulce Marcelino 23309.1.[address] 3.430.2.7 Hospit a .3.098639 l .8 2022-03-10 2022-03-10 [facility], 1.2.840.1 [id number] 712 [id number] Methodi 09:45:00 12:59:00 Encounter Dulce Marcelino 95614.1.[address] 3.430.2.7 Hospit a .3.814142 l .8 2022-03-10 2022-03-10 [facility], 1.2.840.1 [id number] 2100 861676 Methodi 12:00:00 12:05:00 Romeroselma Marcelino 23337.1.1 016 s t 3.430.2.7 Hospit a .3.042659 l .8 2022-03-10 2022-03-10 [facility] 1.2.840.1 10 [id number] [id number] Methodi 11:00:00 12:00:00 Support Ebony Gerber 76286.1.[address] 3.430.2.7 Hospit a .3.240714 l .8 2022-03-10 2022-03-10 [facility] 1.2.840.1 104 924073 [id number] Methodi 10:00:00 11:00:00 Work Pietro Hernandez 20045.1.[address] 3.430.2.7 Hospit a .3.130659 l .8 2022-03-10 2022-03-10 [facility], 1.2.840.1 [id number] 689 [id number] Methodi 09:30:00 09:44:00 Encounter Dulce Marcelino 53881.1.[address] 3.430.2.7 Hospit a .3.670085 l .8 2022-03-10 2022-03-10 [facility], 1.2.840.1 [id number] 297 8693911 Methodi 09:15:00 09:29:00 Encounter Dulce Marcelino 16847.1.[address] 3.430.2.7 Hospit a .3.899075 l .8 2022-03-10 2022-03-10 [facility], 1.2.840.1 [id number] 414 6985203 Methodi 09:00:00 09:14:00 Encounter Dulce Marcelino 88889.1.[address] 3.430.2.7 Hospit a .3.322511 l .8 2022-03-10 2022-03-[address] [facility] [address] [place] 00:00:00 00:00:00 RAFIK 254 Method i 2022-03-10 2022-03-[address] [facility] [address] [place] 00:00:00 00:00:00 RAFIK 279 Method i 2022-03-10 2022-03-[address] [facility] [address] [place] 00:00:00 00:00:00 RAFIK 281 Method i 2022-03-10 2022-03-10 Travel 1.2.840.1 1.2.165.650 8638 735852 Methodi 00:00:00 00:00:[address] 3.430.2.7 0.2.7.3.698 Ho spita .3.651633 084.8 l .8 2022-03-10 2022-03-10 Orders Galati, 1.2.840.1 [id number] 273313 9280 Methodi 00:00:00 00:00:00 Only Tristin Li 11823.1.[address] 3.430.2.7 Hospit a .3.544667 l .8 2022-03-10 2022-03-[address] [facility] [address] [place] 00:00:00 00:00:00 RAFIK 016 Method i 2022-03-10 2022-03-[address] [facility] [address] [place] 00:00:00 00:00:00 RAFIK 251 Method i 2022-03-102022-03-10 Outpatient DONNELL, [facility] [place] 00:00:00 00:00:00 RAFIK 468 Method i 2022-03-10 2022-03-10 Outpatient DONNELL, [facility] 44 [place] 00:00:00 00:00:00 RAFIK 014 Method i 2022-03-10 2022-03-10 Outpatient DONNELL, [facility] [place] 00:00:00 00:00:00 RAFIK 469 Method i 2022-03-10 2022-03-10 Outpatient DONNELL, [facility] [place] 00:00:00 00:00:00 RAFIK 467 Method i 2022-03-10 2022-03-10 Outpatient DONNELL, [facility] [place] 00:00:00 00:00:00 RAFIK 253 Method i 2022-03-09 2022-03-09 Transcribe Saray, 1.2.840.1 [id number] 701 [id number] Methodi 00:00:00 00:00:00 Orders Tristin Li 01723.1.[address] 3.430.2.7 Hospit a .3.311562 l .8 2022-03-08 2022-03-08 Travel 1.2.840.1 1.2.257.940 3320 799665 Methodi 00:00:00 00:00:[address] 3.430.2.7 0.2.7.3.698 Ho spita .3.063357 084.8 l .8 2022-02-17 2022-02-17 Orders Saray, 1.2.840.1 [id number] 243429 0082 Methodi 00:00:00 00:00:00 Only Tristin Li 88914.1.[address] 3.430.2.7 Hospit a .3.033101 l .8 2022-02-14 2022-02-14 Documentat Marcellus, 1.2.840.1 [id number] 561 [id number] Methodi 00:00:00 00:00:00 ion Dustin 54839.1.[address] Raj 3.430.2.7 Hospit a .3.061472 l .8 2022-02-14 2022-02-14 Orders Marcellus, 1.2.840.1 [id number] 491318 5645 Methodi 00:00:00 00:00:00 Only Dustin 71071.1.[address] Raj 3.430.2.7 Hospit a .3.741812 l .8 2022-02-13 2022-02-13 Orders Marcellus, 1.2.840.1 [id number] 421996 3891 Methodi 00:00:00 00:00:00 Only Dustin 61961.1.[address] Raj 3.430.2.7 Hospit a .3.349394 l .8 2022-02-10 2022-02-10 Orders Saray, 1.2.840.1 941534377 194385 7244 Methodi 00:00:00 00:00:00 Only Tristin Li 62937.1.[address] 3.430.2.7 Hospit a .3.606246 l .8 2022-02-07 2022-02-07 Telephone Biere, 1.2.840.1 [id number] 2099 850827 Methodi 00:00:00 00:00:[address] 3.430.2.7 Hospit a .3.300712 l .8 2022-02-06 2022-02-06 Telephone Kapil, 1.2.840.1 289750395 414 3211968 Methodi 00:00:00 00:00:[address] 3.430.2.7 Hospit a .3.719342 l .8 2022-02-03 2022-02-03 Telephone Pops, 1.2.840.1 610484386 2099316 Methodi 00:00:00 00:00:[address] 3.430.2.7 Hospit a .3.646910 l .8 2022-02-03 2022-02-03 Orders Galati, 1.2.840.1 [id number] 481696 2083 Methodi 00:00:00 00:00:00 Only Tristin Li 84615.1.[address] 3.430.2.7 Hospit a .3.903441 l .8 2022-01-27 2022-01-27 Orders Galati, 1.2.840.1 313466725 228257 0754 Methodi 00:00:00 00:00:00 Only Tristin Li 75248.1.[address] 3.430.2.7 Hospit a .3.133766 l .8 2022-01-25 2022-01-25 Hospital Galati, 1.2.840.1 [id number] 71433 23891 Methodi 09:24:01 23:59:00 Encounter Tristin Meeks. 87587.1.[address] 3.430.2.7 Hospit a .3.831894 l .8 2022-01-25 2022-01-25 Infusion Galati, 1.2.840.1 [id number] Methodi 11:00:00 13:00:00 Tristin Meeks. [address]6063.1.[address] 3.430.2.7 Hospit a .3.277938 l .8 2022-01-25 2022-01-25 Outpatient GALATI, [facility] [id number] 553 [place] 00:00:00 00:00:00 TRISTIN [address] 2022-01-25 2022-01-25 Outpatient GALATI, [facility] [id number] 550 [place] 00:00:00 00:00:00 TRISTIN [address] 2022-01-25 2022-01-25 Travel 1.2.840.1 1.2.534.715 5975 320052 Methodi 00:00:00 00:00:[address] 3.430.2.7 0.2.7.3.698 Ho spita .3.654706 084.8 l .8 2022-01-23 2022-01-23 Orders Galati, 1.2.840.1 870524525 777750 2407 Methodi 00:00:00 00:00:00 Only Tristin S. 49952.1.[address] 3.430.2.7 Hospit a .3.633216 l .8 2022-01-23 2022-01-[facility] [id number] 304 1494034 Methodi 00:00:00 00:00:00 Orders Tristin Li 08486.1.[address] 3.430.2.7 Hospit a .3.473199 l .8 2022-01-13 2022-01-13 [facility], 1.2.840.1 [id number] 19395 48591 Methodi 07:34:34 23:59:00 Encounter Tristin Meeks. 14960.1.[address] 3.430.2.7 Hospit a .3.090376 l .8 2022-01-13 2022-01-13 [facility] [id number] 337 [place] 00:00:00 00:00:00 TRISTIN [address] 2022-01-13 2022-01-13 Travel 1.2.840.1 1.2.037.797 1645 766420 Methodi 00:00:00 00:00:[address] 3.430.2.7 0.2.7.3.698 Ho spita .3.899518 084.8 l .8 2022-01-13 2022-01-13 [facility], 1.2.840.1 [id number] 788056 3243 Methodi 00:00:00 00:00:00 Only Tristin Li 27286.1.[address] 3.430.2.7 Hospit a .3.203725 l .8 2022-01-09 2022-01-09 Travel 1.2.840.1 1.2.348.196 9996 796763 Methodi 00:00:00 00:00:[address] 3.430.2.7 0.2.7.3.698 Ho spita .3.489113 084.8 l .8 2022-01-06 2022-01-06 Orders [facility], 1.2.840.1 [id number] 923500 1950 Methodi 00:00:00 00:00:00 Only Tristin Li 84532.1.[address] 3.430.2.7 Hospit a .3.817237 l .8 2021-12-30 2021-12-30 [facility], 1.2.840.1 [id number] 25612 76915 Methodi 08:29:16 23:59:00 Encounter Tristin Li 95918.1.[address] 3.430.2.7 Hospit a .3.853756 l .8 2021-12-30 2021-12-30 Infusion 1.2.840.1 [id number] 21475 75234 Methodi 10:30:00 12:30:[address] 3.430.2.7 Hospit a .3.932917 l .8 2021-12-30 2021-12-30 [facility] [id number] [address] [place] [address] 00:00:00 00:00:[address] 2021-12-30 2021-12-30 Travel 1.2.840.1 1.2.229.028 [id number] Methodi 00:00:00 00:00:[address] 3.430.2.7 0.2.7.3.698 Ho spita .3.161198 084.8 l .8 2021-12-30 2021-12-30 [facility], 1.2.840.1 [id number] Methodi 00:00:00 00:00:00 [place] [address]79.1.[address] 3.430.2.7 Hospit a .3.683200 l .8 2021-12-23 2021-12-23 [facility], 1.2.840.1 [id number] Methodi 00:00:00 00:00:00 Only [place] [address]3696.1.[address] 3.430.2.7 Hospit a .3.032723 l .8 2021-12-23 2021-12-23 Transcribe Galati, 1.2.840.1 [id number] Methodi 00:00:00 00:00:00 [place] 59756.1.1 413 [facility]430[facility].7 [facility] .8 2021-08-26 2021-08-26 Outpatient GALATI, [facility] [id number] 212 [place] 00:00:00 00:00:00 TRISTIN [address] 2021-07-15 2021-07-15 Outpatient GALATI, [facility] [id number] [place] 00:00:00 00:00:00 TRISTIN [address] 2021-05-17 2021-05-17 Outpatient GALATI, [facility] [id number] [place] 00:00:00 00:00:00 TRISTIN [address] 2021-05-17 2021-05-17 Outpatient GALATI, [facility] [id number] 442 [place] 00:00:00 00:00:00 TRISTIN [address] 2021-04-26 2021-04-26 Outpatient GALATI, [facility] [id number] 092 [place] 00:00:00 00:00:00 TRISTIN [address] 2021-04-21 2021-04-21 Outpatient EL JACK, [facility] [id number] [facility] 00:00:00 00:00:00 PRASUN 2021-01-21 2021-01-21 Outpatient EL NAVARROLATawnya, [facility] [id number] [facility] 00:00:00 00:00:00 PRASUN 2021-01-06 2021-01-06 Outpatient JALAL, [facility] [id number] [facility] 00:00:00 00:00:00 PRASUN 2021-01-03 2021-01-03 Outpatient EL JALAL, [facility] [id number] [facility] 00:00:00 00:00:00 PRASUN 2020-12-02 2020-12-02 Outpatient EL NAVARROLAL, [facility] [id number] [facility] 00:00:00 00:00:00 PRASUN 2020-10-27 2020-10-27 Outpatient EL JACK, [facility] [id number] [facility] 00:00:00 00:00:00 PRASDOMINIQUE 2020-09-16 2020-09-16 [facility] [id number] [facility] 00:00:00 00:00:00 PRASUN Results Test Description Test Time Test Comments Results Result Comments Source POC glucose 2022-09-11 17:17:00 Test Item Value Reference Range Interpretation Comme nts POC glucose (test code = 149 mg/dL 65-99 H Ope rator Name: Zane Barkley 04310-2) ID: [id number] hartable: [facility] Notified cream dipper Interpretation (test code = Abnormal 14733-2) [facility] [id number] 14:18:00 Test Item Value Reference Range Interpretation Comments Anaerobic No anaerobic Specimen culture isolate organisms InformationS pecimen (test code = isolated Source: Ascites 64977-2) FluidSpecimen S ite: Not otherwise speci [facility]ied [id number] 11:42:00 Test Item Value Reference Interpretation Comments Range Urine culture Streptococcus group A Specime n isolate (test B10-3 cfu/mlThe Information Specimen code = 54214-3) performance Source: Urin eSpecimen characteristics of Site: Ran dom void this assay on this isolatewere validated by the Microbiology Laboratory at [facility]. This source has not been approved by the U.S. Food and Drug Administration. The results are not intended to be used as the sole means for clinical diagnosis or patient management. The Microbiology Laboratory is authorized under the clinical Laboratory Improvement Amendments of 1988 (CLIA-88) to perform high complexity testing.The performance characteristics of this assay on this isolatewere validated by the Microbiology Laboratory at [facility]. This source has not been approved by the U.S. Food and Drug Administration. The results are not intended to be used as the sole means for clinical diagnosis or patient management. The Microbiology Laboratory is authorized under the clinical Laboratory Improvement Amendments of 1988 (CLIA-88) to perform high complexity testing. Lab Abnormal Interpretation (test code = 15471-0) [facility] [id number] 06:50:00 Test Item Value Reference Range Interpretation Comments Aerobic culture No growth Specimen isolate (test after 3 days. InformationSp ecimen code = 72961-3) Source: Asci bridgett FluidSpecimen S ite: Not otherwise speci fiMethod[facility] HospitalsARS-CoV-2 (COVID-19) RNA [Presence] in Respiratory specimen by GILLES with probe [id number] 23:17:48 Test Item Value Reference Range Interpretation Comments SARS-CoV-2 (COVID-19) RNA Not detected [Presence] in Respiratory specimen by GILLES with probe detection (test code = 43266-2) Whether patient is employed in a Unknown healthcare setting (test code = 26036-3) Whether the patient has symptoms Unknown related to condition of interest (test code = 82812-2) Whether the patient was Unknown hospitalized for condition of interest (test code = 24041-0) Whether the patient was admitted Unknown to intensive care unit (ICU) for condition of interest (test code = 29445-8) Whether patient resides in a Unknown congregate care setting (test code = 71792-2) status (test code = Unknown 40799-8) Date and time of symptom onset Unknown (test code = 60961-9) [facility] [id number] 01:12:00 Test Item Value Reference Range Interpretation Comments Gram stain No organisms Specimen isolate (test seen InformationSpe cimen code = 1469) Source: Ascites FluidSpecimen S ite: Not otherwise speci [facility] [id number] 22:37:00 Test Item Value Reference Range Interpretation Comments Fluid type (test Ascitic code = 52376-4) Protein, fluid 1.1 g/dL The reference interval(s) (test code = and other metho d 2881-1) performance spe cifications have not been e stablished for this body f luid. The test results mu st be integrated into the clinical contex t for interpretation. This test has been modifi ed from the resin maker?s instructions. T he performance tyler racteristics were determined by [facility] olivia in a manner consiste nt with CLIA requirements. T his test has not been cleare d or approved by the U.S. Food and Drug Admini stration. [facility], body [id number] 17:43:00 Test Item Value Reference Range Interpretation Comments [facility] [place] Ascitic (test code = 37144-9) Color, fluid (test Yellow code = 6824-7) Appearance, fluid Clear (test code = 9335-1) RBC, fluid (test SEE COMMENT See_Comment 1+ (0 - 500 code = 28008-4) RBC/CMM) [Au tomated message] The sy stem which generated this result transmitted reference range : /CMM. The refer ence range was not u sed to interpret th is result as normal/abnormal . Nucleated cells, See_Comment [Automated fluid (test code = message] The system 23579-3) which generated this result transmitted reference range : /CMM. The refer ence range was not u sed to interpret th is result as normal/abnormal . Fluid mononuclear Diff to follow cell (test code = 1407) Neutrophils, fluid 2 % (test code = 11251-2) Lymphocytes, fluid 46 % (test code = 79987-1) Eosinophils, fluid 0 % (test code = 97450-3) Basophils, fluid 0 % (test code = 91271-5) Mesothelial cells, 0 % fluid (test code = 89252-8) Macrophages, fluid 52 % (test code = 14154-2) [facility] and [id number] 16:30:00 Test Item Value Reference Range Interpretation Comments ABO grouping O (test code = 883-9) Rh type (test RH(D) POSITIVE For additio nal code = 54523-6) information, please refer to http://educatio n.Q uestDiagnostics .co m/faq/ZVR531 (T his link is being provided for informational/e rosamaria ational purpose s only.) RAC (test code = Performing RAC) Organization Information: Site ID: [facility] Address: [address] [place] [address] Director: Dr. Jorge Raines [facility] Pre/Post [id number] 23:37:20 Test Item Value Reference Range Interpretation Comments Ventricular rate (test code = 253) Atrial rate (test code = 255) MI interval (test code = 266) QRSD interval (test code = 260) QT interval (test code = 264) QTC interval (test code = 265) P axis 1 (test code = 267) QRS axis 1 (test code = 268) T wave axis (test code = 270) EKG impression (test code Normal sinus = 273) rhythm-Right bundle branch block-Abnormal ECG- Sharri EscamillaARS-CoV-2 (COVID-19) RNA [Presence] in Respiratory specimen by GILLES with probe [id number] 13:23:28 Test Item Value Reference Range Interpretation Comments SARS-CoV-2 (COVID-19) RNA Not detected [Presence] in Respiratory specimen by GILLES with probe detection (test code = 31193-1) Whether patient is employed in a Unknown healthcare setting (test code = 92829-6) Whether the patient has symptoms Unknown related to condition of interest (test code = 24560-2) Whether the patient was Unknown hospitalized for condition of interest (test code = 99928-7) Whether the patient was admitted Unknown to intensive care unit (ICU) for condition of interest (test code = 14987-9) Whether patient resides in a Unknown congregate care setting (test code = 94903-4) status (test code = Unknown 24797-0) Date and time of symptom onset Unknown (test code = 10214-4) YONI MENDOZA [id number] 18:09:11 Test Item Value Reference Range Interpretation Comments Interpretation (test code = DRB1*12:JV=DRB1*12 9002678) :01/12:10 (part of DRB1*12:01P)DQB1*0 3:CMXRS=DQB1*03:02 /03:289/03:416 (part of DQB1*03:02P)DPB1*0 2:AFCTE= DPB1*02:01/416:01( part of DPB1*02:01P)DPB1*0 4:FNVS=DPB1*04:02/ 105:01 (part of DPB1*04:02P) Case number (test code = [id number]) HLA typing (test code = See link below for 7408) PDF Lab Report Sharri PonceC1Q class 1 & 2 [id number] 18:55:46 Test Item Value Reference Range Interpretation Comments Case number (test code = [id number]) C1Q class 1 & 2 antibody See link below for (test code = 5442220) PDF Lab Report [facility] antigen [id number] 12:31:20 Test Item Value Reference Range Interpretation Comments Interpretation (test code Additional Antibody = [id number]) Information:DQ2=DQB1 *02:01/DQA1*05:01 SAB serum ID (test code = [id number] 5866) SAB serum collection D&T 03/10/2022 09:28 AM (test code = 5867) SAB class I antibody Cw15, Cw18 assignment (test code = 5870) SAB cPRA class I (test code = 5868) SAB class II antibody DP1, DQ2, DR53 assignment (test code = 5871) SAB cPRA class II (test code = 5869) Case number (test code = [id number]) Single antigen beads See link below for (test code = 4604) PDF [facility] lung [id number] 19:35:16 Test Item Value Reference Range Interpretation Comments VC Pre (test code = 2.78 L 2.93-4.48 5374) VC Predicted (test code = 5372) VC LLN (test code = 5373) VC % Pre of Predicted 74.9 % (test code = 5375) TLC Pre (test code = 4.94 L 4.76-7.06 5416) TLC Predicted (test code = 5414) TLC LLN (test code = 5415) TLC % Pre of Predicted 83.7 % (test code = 5417) RV Pre (test code = 2.17 L 1.61-2.96 5402) RV Predicted (test code = 5400) RV LLN (test code = 5401) RV % Pre of Predicted 94.8 % (test code = 5403) RV % TLC Pre (test 43.83 % 29.55-47.51 code = 5409) RV % TLC Predicted (test code = 5407) RV % TLC LLN (test code = 5408) RV % TLC % Pre of 113.8 % Predicted (test code = 5410) R0.5IN Pre (test code See_Comment [Auto mated message] = 5509) The system VouchAR generated this result transmitted ref erence range: 3.06 - 3 .06 cmH2O*s/L. The reference range was not used to interpr et this result as normal/abnormal . R0.5IN Predicted (test code = 5512) R0.5IN LLN (test code = 5513) R0.5IN % Pre of 71.6 % Predicted (test code = 5515) FRCpl Pre (test code = 2.89 L 2.29-4.27 5388) FRCpl % Predicted (test code = 5386) FRCpl % LLN (test code = 5387) FRCpl % Pre of 88.2 % Predicted (test code = 5389) ERV Pre (test code = 0.73 L 1.00-1.00 5381) ERV Predicted (test code = 5379) ERV LLN (test code = 5380) ERV % Pre of Predicted 73.1 % (test code = 5382) IC Pre (test code = 2.05 L 2.51-2.51 5395) IC Predicted (test code = 5393) IC LLN (test code = 5394) IC % Pre of Predicted 81.7 % (test code = 5396) sR0.5IN Pre (test code cmH2O*s = 5521) Raw Pre (test code = See_Comment [Autom ated message] 5507) The system VouchAR generated this result transmitted ref erence range: 3.06 - 3 .06 cmH2O*s/L. The reference range was not used to interpr et this result as normal/abnormal . Raw Predicted (test code = 5505) Raw LLN (test code = 5506) Raw % Pre of Predicted 109.9 % (test code = 5508) sGaw Predicted (test See_Comment [Autom ated message] code = 5528) The system VouchAR generated this result transmitted ref erence range: 0.08 - 0 .08 1/(cmH2O*s). Th e reference range was not used to interpr et this result as normal/abnormal . sGaw Predicted (test code = 5526) sGaw LLN (test code = 5527) sGaw % Pre of 101.5 % Predicted (test code = 5529) FEV1 Pre (test code = 2.19 L 2.12-3.43 5348) FEV1 Predicted (test code = 5302) FEV1 LLN (test code = 5347) FEV1 % Pre of 78.8 % Predicted (test code = 5308) FVC Pre (test code = 2.75 L 2.93-4.48 5354) FVC Predicted (test code = 5307) FVC LLN (test code = 5353) FVC % Pre of Predicted 74.2 % (test code = 5355) FEV1/FVC % Pre (test 79.54 % 65.37-84.73 code = 5361) FEV1/FVC % Predicted (test code = 5359) FEV1/FVC % LLN (test code = 5360) FEV1/FVC % Pre of 106 % Predicted (test code = 5362) FEF 25-75% Pre (test 2.31 L/s 0.95-3.62 code = 5547) FEF 25-75% Predicted (test code = 5546) FEF 25-75% LLN (test code = 5545) FEF 25-75% % Pre of 100.8 % Predicted (test code = 5548) PEF Pre (test code = 6.23 L/s 5.76-9.63 5367) PEF Predicted (test code = 5310) PEF LLN (test code = 5366) PEF % Pre of Predicted 80.9 % (test code = 5368) DLCO Pre (test code = See_Comment [Auto mated message] 5423) The system VouchAR generated this result transmitted ref erence range: 17.28 - 33.21 ml/(min*mmHg). The reference range was not used to interpr et this result as normal/abnormal . DLCO Predicted (test code = 5421) DLCO LLN (test code = 5422) DLCO % Pre of 86.4 % Predicted (test code = 5424) DLCOc Pre (test code = See_Comment [Aut omated message] 5430) The system VouchAR generated this result transmitted ref erence range: 17.28 - 33.21 ml/(min*mmHg). The reference range was not used to interpr et this result as normal/abnormal . DLCOc Predicted (test code = 5428) DLCOc LLN (test code = 5429) DLCOc % Pre of 94.5 % Predicted (test code = 5431) DL/VA Pre (test code = See_Comment [Aut omated message] 5437) The system VouchAR generated this result transmitted ref erence range: 3.29 - 5 .70 ml/(min*mmHg*L) . The reference range was not used to interpr et this result as normal/abnormal . DL/VA Predicted (test code = 5435) DL/VA LLN (test code = 5436) DL/VA % Pre of 95.5 % Predicted (test code = 5438) KCOc SB Pre (test code See_Comment [Aut omated message] = 5535) The system VouchAR generated this result transmitted ref erence range: 3.29 - 5 .70 ml/(min*mmHg*L) . The reference range was not used to interpr et this result as normal/abnormal . KCOc SB Predicted (test code = 5533) KCOc SB LLN (test code = 5534) KCOc SB % Pre of 104.5 % Predicted (test code = 5536) VA SB Pre (test code = 5.08 L 4.30-7.03 5444) VA SB Predicted (test code = 5442) VA SB LLN (test code = 5443) VA SB % Pre of 89.7 % Predicted (test code = 5445) Hb Pre (test code = g(Hb)/dL 5540) Sharri EscamillaARS-CoV-2 (COVID-19) RNA [Presence] in Respiratory specimen by GILLES with probe [id number] 15:07:32 Test Item Value Reference Range Interpretation Comments SARS-CoV-2 (COVID-19) RNA Not detected [Presence] in Respiratory specimen by GILLES with probe detection (test code = 71237-8) Whether patient is employed in a Unknown healthcare setting (test code = 55646-0) Whether the patient has symptoms Unknown related to condition of interest (test code = 11019-1) Whether the patient was Unknown hospitalized for condition of interest (test code = 13447-8) Whether the patient was admitted Unknown to intensive care unit (ICU) for condition of interest (test code = 72963-9) Whether patient resides in a Unknown congregate care setting (test code = 93477-9) status (test code = Unknown 63021-0) Date and time of symptom onset Unknown (test code = 95792-6) YONI MORIN WEST, ABDOMEN, [id number] 11:45:00Referring: Dr. Miguel DegrootUnlisted Reason for Exam - Click Yes and Enter Reason Below->YesUnlis devon Reason for Exam->cirrhosis [facility] 1960 Sex: MFINAL REPORT TECHNIQUE: MRI of the abdomen WITHOUT and WITH intravenous contrast. INDICATION: Unlisted Reason for Examcirrhosis COMPARISON: Abdomen ultrasound on 09/15/2020. FINDINGS: LOWER THORAX: Unremarkable LIVER: Cirrhotic liver morphology. There are numerous subcentimeter arterially enhancing observation without correlate on other pre or post gadolinium sequences. Medical Advisor observations as follows:*0.5 cm segment VIII observation [...] masses or ductal dilatation. ADRENALS: No adrenal nodules.KIDNEYS/URETERS: No hydronephrosis or solid mass lesions. A left lower pole simple renal cyst measures 0.7 cm. No routine follow-up imaging is recommended. PERITONEUM/RETROPERITONEUM: Trace ascites. The area which is hypointense on T2-weighted imaging and progressively enhances in the retroperitoneum near the origin of the superior mesenteric artery measures 2.2 x 4.8 cm LYMPH NODES: No lymphadenopathy.VESSELS: The main portal vein is patent and [...] as well. 5.Cholelithiasis without acute cholecystitis. Signed: Kim Pan MDReport Verified Date/Time: 01/21/2021 11:45:26 Reading Location: [address] Reading Room ANTI-NUCLEAR ANTIBODY (VANESSA)2020 11:00:00 Test Item Value Reference Range Interpretation Comments ANTI-NUCLEAR ANTIBODY (VANESSA) (BEAKER) Positive Negative A (test code = 418) Test performed by IFA method.VANESSA TITER AND [id number] 11:00:00 Test Item Value Reference Range Interpretation Comments VANESSA TITER (BEAKER) (test code = :160 1541) VANESSA PATTERN (BEAKER) (test code = Speckled 1781) [id number] 15:01:00 Test Item Value Reference Range Interpretation Comments FERRITIN (BEAKER) (test code = 16.44 ng/mL 5.00-275.00 361) Physical Education Aide TIFFANY - ADEEL FALPHA FETOPROTEIN (AFP), TUMOR [id number] 14:20:00 Test Item Value Reference Range Interpretation Comments ALPHA-FETOPROTEIN (BEAKER) (test code < ng/mL <10.0 = 1094) Physical Education Aide ID - ADEEL FHEPATITIS B SURFACE [id number] 14:20:00 Test Item Value Reference Range Interpretation Comments HEPATITIS B SURFACE ANTIBODY < mIU/mL <8.0 (BEAKER) (test code = 647) Physical Education Aide ID - ADEEL FHEPATITIS A ANTIBODY, [id number] 14:18:00 Test Item Value Reference Range Interpretation Comments HEPATITIS A IGG ANTIBODY (BEAKER) Reactive Nonreactive A (test code = 2797) Physical Education Aide ID - ADEEL FHEPATITIS B SURFACE [id number] 14:18:00 Test Item Value Reference Range Interpretation Comments HEPATITIS B SURFACE ANTIGEN (2) Nonreactive Nonreactive (BEAKER) (test code = 2585) Specimen is considered negative for HBsAg.HEPATITIS C [id number] 14:18:00 Test Item Value Reference Range Interpretation Comments HEPATITIS C ANTIBODY (BEAKER) Nonreactive Nonreactive (test code = 367) Physical Education Aide ID - ADEEL FHEPATITIS A ANTIBODY, [id number] 14:17:00 Test Item Value Reference Range Interpretation Comments HEPATITIS A IGM ANTIBODY (BEAKER) Nonreactive Nonreactive (test code = 498) Physical Education Aide ID - ADEEL FHEPATITIS B CORE ANTIBODY, [id number] 14:17:00 Test Item Value Reference Range Interpretation Comments HEPATITIS B CORE TOTAL ANTIBODY Nonreactive Nonreactive (BEAKER) (test code = 497) Physical Education Aide ID - ADEEL [id number] 14:03:00 Test Item Value Reference Range Interpretation Comments ALPHA-1 ANTITRYPSIN (BEAKER) 150.90 mg/dL 90.00-200.00 (test code = 502) Physical Education Aide ID - ADEEL FIRON, TIBC, % SAT. (WITHOUT FERRITIN)2020-09-16 14:03:00 Test Item Value Reference Range Interpretation Comments IRON (BEAKER) (test code = 547) 22.0 ug/dL 40.0-160.0 L TOTAL IRON BINDING CAPACITY 441 ug/dL 250-450 (BEAKER) (test code = 769) IRON % SATURATION (2) (BEAKER) 5 % 20-55 L (test code = 2590) Physical Education Aide ID - ADEEL FBILIRUBIN, [id number] 13:58:00 Test Item Value Reference Range Interpretation Comments BILIRUBIN DIRECT (BEAKER) (test 0.8 mg/dL 0.1-0.5 H code = 706) Physical Education Aide ID - ADEEL FCBC W/PLT COUNT & AUTO [id number] 13:57:00 Test Item Value Reference Range Interpretation [...] (BEAKER) (test code = 2801) COMPREHENSIVE METABOLIC [id number] 13:57:00 Test Item Value Reference Range Interpretation [...] 347) EGFR (BEAKER) (test 87 mL/min/1.73 ESTIMA DEVON GFR IS code = 1092) sq m NOT ACCURATE CREATININE CLEARANCE IN PREDICTING GLOMERULAR FILTRATION RATE . ESTIMATED GFR I S NOT APPLICABLE FOR DIALYSIS PATIEN TS. Physical Education Aide ID - ADEEL FPROTHROMBIN [id number] 13:44:00 Test Item Value Reference Range Interpretation Comments PROTIME (BEAKER) (test code = 15.8 seconds 11.9-14.2 H 759) INR (EFRAIN) (test code = 370) 1.30 <=5.90 Effective 04/16/2019: PT Reference Range ChangeNew: 11.9-14.2 Previous: 11.7- 14.7RECOMMENDED COUMADIN/WARFARIN INR THERAPY RANGESSTANDARD DOSE: 2.0-3.0 Includes: PROPHYLAXIS for venous thrombosis, systemic embolization; TREATMENT for venous thrombosis and/or pulmonary embolus.HIGH RISK: Target INR is 2.5-3.5 for patients wiht mechanical heart valves.
[2022-10-10 09:13] LABS: Absolute Lymphocytes (CBC) 0.9 K/uL (0.7-4.9); Hematocrit 40.3 % (39.6-49.0); Lymphocytes % 7.3 % (15.3-44.8); MCV 90.2 fL (80-100); MPV 9.3 fL (7.6-11.3); RBC Red Blood Cell Count 4.46 M/uL (4.33-5.43)
[2022-10-10] MEDS ORDERED: NA CHLORIDE 0.9% 1,000 ML ONE ×2 (09:29→10:09)
[2022-10-10] MEDS ORDERED: LORazepam 2 MG/ML VIAL ONE (09:30)
--- NOTE | 2022-10-10 09:31 | RAD REPORT ---
EXAM DESCRIPTION: CT - Head Brain Wo Cont - 10/10/2022 9:22 am CLINICAL HISTORY: Alteration of awareness/confusion COMPARISON: 2019 TECHNIQUE: Computed axial tomography of the head was obtained. IV contrast was not requested. All CT scans are performed using dose optimization technique as appropriate and may include automated exposure control or mA/KV adjustment according to patient size. FINDINGS: An intracranial bleed is not seen . The ventricles are normal in caliber. No extra-axial fluid collection is noted. Mild low-density areas within periventricular, deep and subcortical white matter likely represent isc hemic changes secondary to small vessel disease. Fluid within the sinuses/ mastoids is not seen. IMPRESSION: No acute intracranial abnormality is seen. If patient's symptoms persist MRI of the bra in would be recommended.
[2022-10-10 09:37] LABS: Albumin 2.6 g/dL (3.4-5.0); Bilirubin Direct 1.4 mg/dL (0-0.2); Bilirubin Total 2.2 mg/dL (0.2-1.0); Protein, Total 8.2 g/dL (6.4-8.2); Troponin High Sensitivity 43.3 pg/mL (<58.9)
[2022-10-10 09:39] LABS: Potassium 2.7 mmol/L (3.5-5.1)
[2022-10-10] MEDS ORDERED: KCL 20 MEQ/100 mL IVPB 100 ML IV ONE (10:09)
[2022-10-10] MEDS ORDERED: POTASSIUM 25 MEQ EFFERV TAB ONE (10:10)
[2022-10-10] MEDS ORDERED: LACTULOSE 20 GM/30 ML UCUP ONE ×3 (10:10→12:29)
[2022-10-10 10:25] LABS: SARS-COV-2 RT PCR NEGATIVE (NEGATIVE)
--- NOTE | 2022-10-10 10:26 | RAD REPORT ---
EXAM DESCRIPTION: [place] Single View10/10/2022 9:49 am CLINICAL HISTORY: Chest pain COMPARISON: 2019 FINDINGS: The lungs appear clear of acute infiltrate. The heart is normal size Air is present within the right upper quadrant IMPRESSION: Air within the right upper quadrant incompletely evaluated on this exam. Presumably this represents air within bowel. If the patient has clinical symptoms of an acute abdomen then upright a bdominal plain film would be recommended
--- NOTE | 2022-10-10 10:38 | EDPHYS ---
Physician Documentation [facility] Name: Chinedu Rosenberg Age: 62 yrs Sex: Male : 1960 Arrival Date: 10/10/2022 Time: 08:53 Bed 17 Private MD: ED Physician Chad Sterling HPI: 10/10 09:49 This 62 yrs old Male presents to ER via EMS with complaints of generalized jl9 weakness. Patient's family called after noticing patient had some intermittent AMS. . 09:49 Onset: The symptoms/episode began/occurred yesterday. The patient has experienced jl9 similar episodes in the past. Historical: - Allergies: 08:55 No Known Allergies; bp - PMHx: 08:55 Cirrhosis; Diabetes - NIDDM; Hypertension; bp - Immunization history:: Adult Immunizations unknown. - Social history:: Smoking status: unknown. ROS: 09:50 Constitutional: Negative for fever, chills, and weight loss, Eyes: Negative for injury, jl9 pain, redness, and discharge, ENT: Negative for injury, pain, and discharge, Neck: Negative for injury, pain, and swelling, Cardiovascular: Negative for chest pain, palpitations, and edema, Respiratory: Negative for shortness of breath, cough, wheezing, and pleuritic chest pain, Abdomen/GI: Negative for abdominal pain, nausea, vomiting, diarrhea, and constipation, Back: Negative for injury and pain, : Negative for injury, bleeding, discharge, and swelling, MS/Extremity: Negative for injury and deformity, Skin: Negative for injury, rash, and discoloration, Neuro: Negative for headache, weakness, numbness, tingling, and seizure, Psych: Negative for depression, anxiety, suicide ideation, homicidal ideation, and hallucinations, Allergy/Immunology: Negative for hives, rash, and allergies, Endocrine: Negative for neck swelling, polydipsia, polyuria, polyphagia, and marked weight changes, Hematologic/Lymphatic: Negative for swollen nodes, abnormal bleeding, and unusual bruising. Exam: 09:50 Constitutional: This is a well developed, well nourished patient who is awake, alert, jl9 and in no acute distress. Head/Face: Normocephalic, atraumatic. Eyes: Pupils equal round and reactive to light, extra-ocular motions intact. Lids and lashes normal. Conjunctiva and sclera are non-icteric and not injected. Cornea within normal limits. Periorbital areas with no swelling, redness, or edema. ENT: Mucous membranes moist. Neck: Trachea midline, no thyromegaly or masses palpated, and no cervical lymphadenopathy. Supple, full range of motion without nuchal rigidity, or vertebral point tenderness. No Meningismus. Chest/axilla: Normal chest wall appearance and motion. Nontender with no deformity. No lesions are appreciated. Cardiovascular: Regular rate and rhythm with a normal S1 and S2. No gallops, murmurs, or rubs. Normal PMI, no JVD. No pulse deficits. Respiratory: Lungs have equal breath sounds bilaterally, clear to auscultation and percussion. No rales, rhonchi or wheezes noted. No increased work of breathing, no retractions or nasal flaring. 09:50 Back: No spinal tenderness. No costovertebral tenderness. Full range of motion. Skin: Warm, dry with normal turgor. Normal color with no rashes, no lesions, and no evidence of cellulitis. MS/ Extremity: Pulses equal, no cyanosis. Neurovascular intact. Full, normal range of motion. 09:50 Psych: Awake, alert, with orientation to person, place and time. Behavior, mood, and affect are within normal limits. 09:50 Abdomen/GI: Inspection: distension, that is moderate, Bowel sounds: normal, Palpation: abdomen is soft and non-tender, Rectal exam: 09:50 Neuro: Orientation: is normal, Mentation: slow to respond, Memory: is normal, Cranial nerves: grossly normal, Cerebellar function: is grossly normal, Motor: is normal, Sensation: is normal. Vital Signs: 08:54 BP 148 / 81; Pulse 132; Resp 20; Temp 98; Pulse Ox 100% ; bp 10:30 BP 124 / 62; Pulse 131; Resp 24; Pulse Ox 100% ; bp 11:36 BP 114 / 70; Pulse 129; Resp 24; Pulse Ox 97% ; bp 13:42 BP 142 / 82; Pulse 136; Resp 24; Pulse Ox 98% ; bp MDM: 08:54 Patient medically screened. 9 09:51 Data reviewed: vital signs, nurses notes. 9 10:36 Counseling: I had a detailed discussion with the patient and/or guardian regarding: the jl9 historical points, exam findings, and any diagnostic results supporting the discharge/admit diagnosis, lab results, radiology results, the need to transfer to another facility, for higher level of care. 11:32 Physician consultation:. ED course: Spoke to Dr. Ross at [facility], accepts patient. . 10/10 08:59 Order name: CBC with Diff; Complete Time: 09:19 10/10 08:59 Order name: Troponin HS; Complete Time: 09:39 10/10 08:59 Order name: AMMONIA; Complete Time: 09:26 10/10 08:59 Order name: Lipase; Complete Time: 09:39 10/10 08:59 Order name: Hepatic Function; Complete Time: 09:39 10/10 08:59 Order name: BMP; Complete Time: 09:39 10/10 08:59 Order name: XRAY Chest (1 view); Complete Time: 10:26 10/10 09:05 Order name: CT Head Brain wo Cont; Complete Time: 09:37 10/10 09:27 Order name: COVID-19/FLU A+B/RSV; Complete Time: 10:26 10/10 08:59 Order name: Cardiac monitoring; Complete Time: 09:39 10/10 08:59 Order name: EKG - Nurse/Tech; Complete Time: 10:03 10/10 08:59 Order name: IV Saline Lock; Complete Time: 09:02 10/10 08:59 Order name: Labs collected and sent; Complete Time: 09:02 10/10 08:59 Order name: O2 Per Protocol; Complete Time: 09:03 10/10 08:59 Order name: O2 Sat Monitoring; Complete Time: 09:03 Administered Medications: 09:39 Drug: Ativan (LORazepam) 1 mg Route: IVP; Site: left forearm; bp 14:03 Follow up: Response: No adverse reaction bp 10:00 Drug: NS 0.9% 1000 ml Route: IV; Rate: 1000 ml; Site: left forearm; bp 14:03 Follow up: IV Status: Completed infusion; IV Intake: 1000ml bp 10:00 Drug: Lactulose 30 grams Volume: 45 ml; Route: PO; bp 13:44 Follow up: Response: No adverse reaction bp 10:00 Drug: Potassium Chloride 20 mEq Route: IV; Rate: calculated rate; Site: left forearm; bp 14:03 Follow up: IV Status: Completed infusion; IV Intake: 100ml bp 10:30 Drug: Potassium Chloride 40 mEq Route: PO; bp 14:03 Follow up: Response: No adverse reaction bp Disposition Summary: 10/10/22 10:38 Transfer Ordered Transfer Location: [facility] jl9 Reason: Higher level of care jl9 Condition: Fair jl9 Problem: new jl9 Symptoms: have worsened jl9 Accepting Physician: Sharri Proctor. (10/10/22 14:04) bp Diagnosis - Altered mental status, unspecified - Hepatic Encephalopathy jl9 Forms: - Medication Reconciliation Form jl9 - SBAR form jl9 Signatures: Dispatcher [employer] EDEsteban Skaggs, RN RN Conrado Galo jl9 Corrections: (The following items were deleted from the chart) 11:33 10:38 . jl9 jl9 14:04 11:33 Sharri Proctor. jl9 bp
--- NOTE | 2022-10-10 10:38 | ER ---
Nurse's Notes [facility] Name: Chinedu Rosenberg Age: 62 yrs Sex: Male : 1960 Arrival Date: 10/10/2022 Time: 08:53 Bed 17 Private MD: Diagnosis: Altered mental status, unspecified-Hepatic Encephalopathy Presentation: 10/10 08:54 Chief complaint: EMS states: FAMILY CALLED FOR AMS, PT AOx1. Coronavirus screen: At bp this time, the client does not indicate any symptoms associated with coronavirus-19. Ebola Screen: No symptoms or risks identified at this time. Initial Sepsis Screen: Does the patient meet any 2 criteria? Altered Mental Status. HR > 90 bpm. No. Patient's initial sepsis screen is negative. Does the patient have a suspected source of infection? No. Patient's initial sepsis screen is negative. Risk Assessment: Do you want to hurt yourself or someone else? Patient reports no desire to harm self or others. Onset of symptoms is unknown. Care prior to arrival: Glucose check: 175. 08:54 Method Of Arrival: EMS: [facility] bp 08:54 Acuity: EDUARDO 2 bp Triage Assessment: 08:55 General: Appears unkempt, Behavior is agitated, anxious, uncooperative. Pain: Unable to bp use pain scale. Patient is disoriented. EENT: No deficits noted. Neuro: Level of Consciousness is confused, lethargic, Oriented to person. Cardiovascular: Rhythm is sinus tachycardia. Respiratory: Breath sounds are clear bilaterally. GI: No signs and/or symptoms were reported involving the gastrointestinal system. : No signs and/or symptoms were reported regarding the genitourinary system. Derm: No deficits noted. Musculoskeletal: No deficits noted. Historical: - Allergies: 08:55 No Known Allergies; bp - PMHx: 08:55 Cirrhosis; Diabetes - NIDDM; Hypertension; bp - Immunization history:: Adult Immunizations unknown. - Social history:: Smoking status: unknown. Screenin:57 Abuse screen: Denies threats or abuse. Denies injuries from another. Nutritional bp screening: No deficits noted. Tuberculosis screening: Possible symptoms:. Fall Risk No fall in past 12 months (0 pts). Secondary diagnosis (15 points) CIRRHOSIS. No IV (0 pts). Ambulatory Aid- None/Bed Rest/Nurse Assist (0 pts). Gait- Weak (10 pts.). Mental Status- Overestimates/Forgets Limitations (15 pts.). Total Millan Fall Scale indicates High Risk Score (45 or more points). Fall prevention measures have been instituted. Side Rails Up X 2 Placed Close to Nursing Station Frequent Obs/Assessments Occuring. Assessment: 08:57 General: SEE TRIAGE NOTE. bp 10:40 Reassessment: PT REMAINS AOx0, REFUSING PO MEDICATION, SPITTING THEM AT STAFF. bp 11:36 Reassessment: PT RECEIVING ORAL MEDS FROM FAMILY. TRANSFER INITIATED. bp 13:42 Reassessment: PT MARK WITH EMS. bp Vital Signs: 08:54 BP 148 / 81; Pulse 132; Resp 20; Temp 98; Pulse Ox 100% ; bp 10:30 BP 124 / 62; Pulse 131; Resp 24; Pulse Ox 100% ; bp 11:36 BP 114 / 70; Pulse 129; Resp 24; Pulse Ox 97% ; bp 13:42 BP 142 / 82; Pulse 136; Resp 24; Pulse Ox 98% ; bp ED Course: 08:53 Patient arrived in ED. ko1 08:54 Esteban Bonilla, RN is Primary Nurse. bp 08:54 Conrado Manning is PHCP. jl9 08:54 Chad Sterling MD is Attending Physician. jl9 08:55 Triage completed. bp 08:56 Arm band placed on. bp 08:57 Patient has correct armband on for positive identification. Placed in gown. Bed in low bp position. Adult w/ patient. 09:05 Inserted saline lock: 20 gauge in left forearm, using aseptic technique. Blood iw collected. 09:24 CT Head Brain wo Cont In Process Unspecified. EDMS 09:51 XRAY Chest (1 view) In Process Unspecified. EDMS 10:54 initiated transfer to [facility]. bd 13:07 pt accepted in transfer to [facility] Nida hamilton ,[address] 1056, by dr Valadez, admin bd approval given by Yuki Yap. 13:43 No provider procedures requiring assistance completed. Patient transferred, IV remains bp in place. Administered Medications: 09:39 Drug: Ativan (LORazepam) 1 mg Route: IVP; Site: left forearm; bp 14:03 Follow up: Response: No adverse reaction bp 10:00 Drug: NS 0.9% 1000 ml Route: IV; Rate: 1000 ml; Site: left forearm; bp 14:03 Follow up: IV Status: Completed infusion; IV Intake: 1000ml bp 10:00 Drug: Lactulose 30 grams Volume: 45 ml; Route: PO; bp 13:44 Follow up: Response: No adverse reaction bp 10:00 Drug: Potassium Chloride 20 mEq Route: IV; Rate: calculated rate; Site: left forearm; bp 14:03 Follow up: IV Status: Completed infusion; IV Intake: 100ml bp 10:30 Drug: Potassium Chloride 40 mEq Route: PO; bp 14:03 Follow up: Response: No adverse reaction bp Medication: 08:57 VIS not applicable for this client. bp Intake: 14:03 IV: 100ml; Total: 100ml. bp 14:03 IV: 1000ml; Total: 1100ml. bp Outcome: 10:38 ER care complete, transfer ordered by MD. singh 13:43 Transferred by ground EMS to [facility], Note: MAHARAJ [id number] bp 13:43 Condition: stable 13:43 Instructed on the need for transfer. 14:04 Patient left the ED. bp Signatures: Dispatcher [employer] EDMS Valarie Coleman Irene, RN RN iw Peltier, Brian, RN RN Conrado Galo9 Radha Lawrence RN RN ko1 Corrections: (The following items were deleted from the chart) 10:29 10:00 Potassium Chloride 40 mEq PO bp bp
[2022-10-10] MEDS ORDERED: ONDANSETRON 4 MG/2 ML VIAL ONE (13:37)
[2022-10-10 14:21] VITALS: TEMP 98
[2022-10-10 14:38] VITALS: BP 142/82; O2SAT 98
--- NOTE | 2022-10-11 11:37 | EKG ---
Test Date: 2022-10-10 Test Time: 09:52:05 Delivery Sales Worker: MARION MEASUREMENT RESULTS: Intervals: Rate: 119 NE: QRSD: 122 QT: 448 QTc: 630 Barling: P: NE: QRS: 4 T: 38 INTERPRETIVE STATEMENTS: Atrial fibrillation with rapid ventricular response Right bundle branch block Cannot rule out Inferior infarct, age undetermined Abnormal ECG Compared to ECG 02/21/2021 15:25:30 Sinus tachycardia no longer present Myocardial infarct finding still present Electronically Signed On 10-11-22 11:34:41 MACHINE FELLER by Wiliam Wagner
== END 2022-10-10 14:04 | disposition short-term general hospital (02) ==
LOC: ER 08:44
DX: K76.82 Hepatic encephalopathy (principal); K74.60 Unspecified cirrhosis of liver; E11.9 Type 2 diabetes mellitus without complications; I10 Essential (primary) hypertension; Z20.822 Contact with and (suspected) exposure to COVID-19
CPT/HCPCS: 96365; 93005; 85025; 80048; 36415; 82140; 80076; 84484; 83690; 0241U; 70450; 71045; 96375; 99285; 96366; J3480; J7030 ×2; J2405